=== PATIENT | female | born 1965 | race Caucasian/White ===

== ENCOUNTER → 2017-10-13 13:28 | Outpatient (CLI) | payer BC, SELFPAY | PROVIDERS: Family Provider Family Medicine; PCP Family Medicine; Visit Provider Urology | DX: R69 Illness, unspecified (principal) ==

== ENCOUNTER → 2018-01-10 19:23 | Outpatient (CLI) | payer BC, SELFPAY ==
--- NOTE | 2018-01-10 13:30 | CYSPIN_PTH ---
PATIENT: TREASURE PÉREZ LOC: [facility] U#:[id number] AGE/SX: 60/F ROOM: RE01/10/[address]: Dr. Pantera Willis MD : 1965 BED: DIS: SPEC #: [id number] RECD: 01/10/18 13:30 STATUS: BUCK FARHANA #: [id number] JUAN CARLOS: 01/10/18 13:[address]: Pantera Willis DEPT: CYTOLOGY RECD BY: Lee Carreno ENTERED: 01/11/18 07:57 SP TYPE: CYSPIN FL OTHR DR: Dr. Say Martinez MD Tissues: Urine Procedures: Pap Stain (control) Special Stain Group II Cytospin Fluid HEADER OPERATION: Not noted PRE-OP DIAGNOSIS: C67.0 TISSUE SUBMITTED: Urine for cytology DIAGNOSIS CYTOLOGY Urine for cytology (cytospin): Negative for malignant cells. AM:jaydon 01/12/18 COMMENT The specimen primarily contains squamous epithelial cells. Clinical correlation is suggested. CYTOLOGY STUDY Slides are reviewed. CYTOLOGY GROSS Received is 50 ml of clear yellow fluid labeled with the patient's name and and designated per the requisition as urine. Submitted for cytology preparation. 01/11/18 TC:5 CPT: 06664
[2018-01-10 19:25] LABS: Cytology, Body Fluid / CSF SEE PATHOLOGY REPORT
== END ==
PROVIDERS: Family Provider Family Medicine; PCP Family Medicine; Visit Provider Urology
DX: C67.0 Malignant neoplasm of trigone of bladder (principal)
CPT/HCPCS: 88108; 88313

== ENCOUNTER → 2018-06-27 12:53 | Outpatient (CLI) | payer BC, SELFPAY ==
--- NOTE | 2018-06-27 12:56 | CYSPIN_PTH ---
PATIENT: TREASURE PÉREZ LOC: . U#:[id number] AGE/SX: 60/F ROOM: RE06/27/[address]: Dr. Pantera Willis MD : 1965 BED: DIS: SPEC #: [id number] RECD: 06/27/18 13:28 STATUS: BUCK RECarlin #: [id number] JUAN CARLOS: 06/27/18 12:[address]: Pantera Willis DEPT: CYTOLOGY RECD BY: Miguel Parker ENTERED: 06/27/18 13:29 SP TYPE: CYSPIN FL OTHR DR: Dr. Say Martinez MD Tissues: Urine Procedures: Pap Stain (control) Special Stain Group II Cytospin Fluid HEADER OPERATION: Not noted PRE-OP DIAGNOSIS: History bladder CA Z85.51 TISSUE SUBMITTED: Urine for cytology DIAGNOSIS CYTOLOGY Urine for cytology (cytospin): Negative for malignant cells. SJ:jaydon 06/28/18 COMMENT Please make reference to previous specimen ([id number]) urine for cytology with diagnosis of atypical urothelial cells present and ([id number]) cauterized resected bladder tissue, TUR with diagnosis of minute detached and unoriented fragments of atypical urothelium consistent with urothelial carcinoma. CYTOLOGY STUDY Slides are reviewed. The specimen predominantly consists of benign squamous cells. CYTOLOGY GROSS Received is 40 ml of dark gold cloudy fluid labeled with the patient's name and and designated per the requisition as urine. Submitted for cytology preparation. 06/27/18 TC:4 CPT: 24333
[2018-06-27 12:57] LABS: Cytology, Body Fluid / CSF SEE PATHOLOGY REPORT
== END ==
PROVIDERS: Family Provider Family Medicine; PCP Family Medicine; Visit Provider Urology
DX: Z85.51 Personal history of malignant neoplasm of bladder (principal)
CPT/HCPCS: 88108; 88313

== ENCOUNTER → 2018-07-28 13:52 | Outpatient (CLI) | payer BC, SELFPAY ==
[2018-08-05 12:04] LABS: HPV Reflexed? NOT INDICATED
== END ==
PROVIDERS: Family Provider Family Medicine; PCP Family Medicine; Visit Provider Obstetrics & Gynecology
DX: Z12.4 Encounter for screening for malignant neoplasm of cervix (principal)
CPT/HCPCS: 88175; G0145

== ENCOUNTER → 2018-08-02 14:06 | Outpatient (CLI) | payer BC, SELFPAY | PROVIDERS: Family Provider Family Medicine; PCP Family Medicine; Visit Provider Obstetrics & Gynecology | DX: N63.20 Unspecified lump in the left breast, unspecified quadrant (principal); Z80.3 Family history of malignant neoplasm of breast | CPT/HCPCS: 76642; 77062; 77066; G0279 ==

== ENCOUNTER → 2018-08-12 10:52 | Outpatient (CLI) | payer BC, SELFPAY ==
--- NOTE | 2018-08-12 10:54 | RAD_ITS ---
STUDY: X-RAY - RIGHT FOOT CLINICAL: Female, 53 years old. Pain along the third fourth and fifth metatarsals. TECHNIQUE: 3 view(s) of the foot. COMPARISON: None. FINDINGS: There is a tiny plantar spur. Normal visualized subtalar, talonavicular, calcaneocuboid, tarsal and tarsometatarsal articulations. Normal metatarsi. Normal metatarsophalangeal joint of the great toe. Normal tibial and fibular sesamoid bones. Normal interphalangeal joint of the great toe. Normal phalanges of the great toe. Normal second through fifth metatarsophalangeal joints. Normal interphalangeal joints and phalanges of the lesser toes. The soft tissue structures are unremarkable. RAD/Foot min 3 Views IMPRESSION: Tiny plantar spur. Electronically Signed: Rohan Ramirez MD at 11:26 EDT Tel [phone], Service support ,
[2018-08-12 12:24] LABS: Absolute Neutrophil Count 2.9 X10^3/uL (2.0-7.7); Basophil# 0.01 X10^3/uL; Basophil% 0.2 % (0-1); Eosinophil# 0.11 X10^3/uL; Eosinophils% 2.4 % (0-5); Hematocrit 41.3 % (37-47); Hemoglobin 13.7 g/dl (12.0-15.0); Lymphocyte % 26.3 % (19-41); Mean Corp Hgb Conc 33.2 g/gl (32-36); Mean Corpuscular Hgb 29.6 pg (27.0-32.0); Mean Corpuscular Volume 89.2 fL (81-99); Mean Platelet Vol. 11.1 fl (6.2-12.0); Monocyte# 0.37 X10^3/uL; Monocyte% 8.1 % (0-10); Neutrophil # 2.87 X10^3/uL (2.7-7.7); Platelet Count 169 K/mm3 (150-450); RBC Distribution Width CV 12.7 % (11.6-14.6); RBC Distribution Width SD 41.2 fl (35.1-43.9); Red Blood Count 4.63 M/mm3 (4.2-5.4); White Blood Count 4.6 K/mm3 (4.4-11.0)
[2018-08-12 12:30] LABS: POSITIVE COUNT NO; POSITIVE DIFFERENTIAL NO; POSITIVE MORPHOLOGY NO
[2018-08-12 12:57] LABS: Vitamin D,25 Hydroxy 36.4 ng/mL (29.95-100.01)
[2018-08-12 12:59] LABS: ALB/GLOB Ratio 1.1 RATIO (0.9-2.4); AST(SGOT) 13 U/L (15-37); Alanine Aminotransfer ALT/SGPT 17 U/L (13-56); Albumin, Serum 3.7 g/dL (3.2-5.0); Alkaline Phosphatase 81 U/L (45-117); Anion Gap 10 (5-15); BUN 16 mg/dL (7-18); BUN/Creat Ratio 17.3 RATIO (10-20); Chloride 109 mmol/L (98-107); Creatinine, Serum 0.92 mg/dL (0.55-1.02); EST Glomerular Filtration Rate 67 mL/min (>60); Est Glom Filt Rate - Afr Amer 82 mL/min (>60); Globulin 3.3 g/dL (2.2-4.2); Glucose 88 mg/dL (74-106); Potassium 4.1 mmol/L (3.5-5.1); Sodium Level 144 mmol/L (136-145)
== END ==
PROVIDERS: Family Medicine; Family Provider Family Medicine; PCP Family Medicine; Visit Provider Family Medicine
DX: M77.41 Metatarsalgia, right foot (principal); D89.89 Other specified disorders involving the immune mechanism, not elsewhere classified; E55.9 Vitamin D deficiency, unspecified
CPT/HCPCS: 36415; 73630; 80053; 82306; 84443; 85025

== ENCOUNTER → 2018-09-22 21:35 | Outpatient (CLI) | payer BC, SELFPAY ==
--- NOTE | 2018-09-22 13:30 | CYSPIN_PTH ---
PATIENT: TREASURE PÉREZ LOC: [facility] U#:[id number] AGE/SX: 60/F ROOM: RE09/22/[address]: Dr. Pantera Willis MD : 1965 BED: DIS: SPEC #: [id number] RECD: 09/23/18 11:47 STATUS: BUCK RECarlin #: [id number] JUAN CARLOS: 09/22/18 13:[address]: Pantera Willis DEPT: CYTOLOGY RECD BY: Miguel Parker ENTERED: 09/23/18 11:47 SP TYPE: CYSPIN FL OTHR DR: Dr. Say Martinez MD Tissues: Urine Procedures: Pap Stain (control) Special Stain Group II Cytospin Fluid HEADER OPERATION: Not noted PRE-OP DIAGNOSIS: Bladder CA TISSUE SUBMITTED: Urine for cytology DIAGNOSIS CYTOLOGY Urine for cytology (cytospin): Negative for malignant cells. See cytology study and comment. SJ:jaydon 10/29/18 COMMENT Clinical correlation and appropriate follow up are necessary. CYTOLOGY STUDY Slides are reviewed. The specimen predominantly consists of benign squamous cells and organisms consistent with bacteria. CYTOLOGY GROSS Received is 20 ml of yellow cloudy fluid labeled with the patient's name and and designated per the requisition as urine. Submitted for cytology preparation. / 09/23/18 TC:5 CPT: 08750 ADDENDUM ADDENDUM ADDENDUM ADDENDUM ADDENDUM ADDENDUM ADDENDUM ADDENDUM 10/14/2018 09:57 ADDENDUM 10/14/2018 09:57 ADDENDUM 10/14/2018 09:57 ADDENDUM 10/14/2018 09:57 ADDENDUM 10/14/2018 09:57 FLUORESCENCE IN-SITU HYBRIDIZATION (FISH) From [facility] Interpretation: Negative [facility] Please see complete report in e-chart or EMR
[2018-09-22 21:38] LABS: Cytology, Body Fluid / CSF SEE PATHOLOGY REPORT
== END ==
PROVIDERS: Family Provider Family Medicine; PCP Family Medicine; Referring Provider Urology; Visit Provider Urology
DX: C67.9 Malignant neoplasm of bladder, unspecified (principal)
CPT/HCPCS: 88108; 88313

== ENCOUNTER 2018-11-18 10:30 | Outpatient (RCR) | payer BC, SELFPAY | END 2018-11-18 17:00 | disposition home or self-care (01) | LOC: PT 10:30 | PROVIDERS: Family Provider Family Medicine; PCP Family Medicine; Referring Provider Family Medicine; Visit Provider Family Medicine | DX: M54.2 Cervicalgia (principal); M25.519 Pain in unspecified shoulder | CPT/HCPCS: 97110 ==

== ENCOUNTER → 2019-03-21 17:50 | Outpatient (CLI) | payer BC, SELFPAY ==
--- NOTE | 2019-03-21 | CYSPIN_PTH ---
PATIENT: TREASURE PÉREZ LOC: [facility] U#:[id number] AGE/SX: 60/F ROOM: RE03/21/[address]: Dr. Pantera Willis MD : 1965 BED: DIS: SPEC #: [id number] RECD: 03/21/19 13:45 STATUS: BUCK RECarlin #: [id number] JUAN CARLOS: 03/21/19 00:[address]: Pantera Willis DEPT: CYTOLOGY RECD BY: Lee Carreno ENTERED: 03/22/19 12:48 SP TYPE: CYSPIN FL OTHR DR: Dr. Say Martinez MD Tissues: Urine Procedures: Pap Stain (control) Special Stain Group II Cytospin Fluid HEADER OPERATION: Not noted PRE-OP DIAGNOSIS: History of bladder CA TISSUE SUBMITTED: Urine for cytology DIAGNOSIS CYTOLOGY Urine for cytology (cytospin): Negative for malignant cells. See comment. AM:jaydon 03/23/19 COMMENT The specimen primarily contains squamous epithelial cells. Clinical correlation is suggested. CYTOLOGY STUDY Slides are reviewed. CYTOLOGY GROSS Received is 29 ml of clear yellow fluid labeled with the patient's name and and designated per the requisition as urine. Submitted for cytology preparation. 03/22/19 TC:5 CPT: 38786
[2019-03-21 17:54] LABS: Cytology, Body Fluid / CSF SEE PATHOLOGY REPORT
== END ==
PROVIDERS: Family Provider Family Medicine; PCP Family Medicine; Referring Provider Urology; Visit Provider Urology
DX: Z85.51 Personal history of malignant neoplasm of bladder (principal)
CPT/HCPCS: 88108; 88313

== ENCOUNTER → 2019-05-08 17:24 | Outpatient (CLI) | payer BC, SELFPAY | PROVIDERS: Family Provider Family Medicine; PCP Family Medicine; Referring Provider Urology; Visit Provider Urology | DX: C67.9 Malignant neoplasm of bladder, unspecified (principal) ==

== ENCOUNTER → 2019-05-09 09:46 | Outpatient (CLI) | payer BC, SELFPAY ==
[2019-05-09 12:17] LABS: Erythrocyte Sedimentation Rate 6 mm/hr (0-30)
[2019-05-09 12:20] LABS: Absolute Lymphocyte Count 1.31 X10^3/ul (0.83-4.51); Absolute Neutrophil Count 2.7 X10^3/uL (2.0-7.7); Basophil# 0.01 X10^3/uL; Basophil% 0.2 % (0-1); Eosinophils% 2.3 % (0-5); Hematocrit 41.5 % (37-47); Hemoglobin 13.9 g/dl (12.0-15.0); Lymphocyte # 1.31 X10^3/ul (4.0); Lymphocyte % 29.8 % (19-41); Mean Corp Hgb Conc 33.5 g/gl (32-36); Mean Corpuscular Hgb 30.1 pg (27.0-32.0); Mean Corpuscular Volume 89.8 fL (81-99); Mean Platelet Vol. 11.2 fl (6.2-12.0); Monocyte# 0.33 X10^3/uL; Monocyte% 7.5 % (0-10); Neutrophil # 2.65 X10^3/uL (2.7-7.7); Neutrophil % 60.2 % (47-70); Platelet Count 192 K/mm3 (150-450); RBC Distribution Width SD 42.3 fl (35.1-43.9); Red Blood Count 4.62 M/mm3 (4.2-5.4); White Blood Count 4.4 K/mm3 (4.4-11.0)
[2019-05-09 12:21] LABS: POSITIVE COUNT NO; POSITIVE DIFFERENTIAL NO; POSITIVE MORPHOLOGY NO
[2019-05-09 12:40] LABS: Cholesterol 253 mg/dL (200); High Density Lipoprotein 58 mg/dL; Triglycerides 167 mg/dL; Very Low Density Lipoprotein 33 mg/dL (5-40)
[2019-05-09 13:10] LABS: Vitamin D,25 Hydroxy 33.1 ng/mL (29.95-100.01)
== END ==
PROVIDERS: Family Provider Family Medicine; PCP Family Medicine; Referring Provider Family Medicine; Visit Provider Family Medicine
DX: D89.89 Other specified disorders involving the immune mechanism, not elsewhere classified (principal); E78.00 Pure hypercholesterolemia, unspecified; E55.9 Vitamin D deficiency, unspecified
CPT/HCPCS: 36415; 80061; 82306; 85025; 85652

== ENCOUNTER → 2019-09-08 15:25 | Outpatient (CLI) | payer BC, SELFPAY | PROVIDERS: Visit Provider Obstetrics & Gynecology | DX: Z12.4 Encounter for screening for malignant neoplasm of cervix (principal) ==

== ENCOUNTER → 2019-09-14 17:02 | Outpatient (CLI) | payer BC, SELFPAY ==
--- NOTE | 2019-09-14 | CYSPIN_PTH ---
PATIENT: TREASURE PÉREZ LOC: [facility] U#:[id number] AGE/SX: 60/F ROOM: RE09/14/[address]: Dr. Pantera Willis MD : 1965 BED: DIS: SPEC #: [id number] RECD: 09/15/19 08:52 STATUS: BUCK FARHANA #: [id number] JUAN CARLOS: 09/14/19 00:[address]: Pantera Willis DEPT: CYTOLOGY RECD BY: Gonsalo Martinez Tissues: Urine Procedures: Pap Stain (control) Special Stain Group II Cytospin Fluid HEADER OPERATION: Not noted PRE-OP DIAGNOSIS: Bladder CA TISSUE SUBMITTED: Urine for cytology DIAGNOSIS CYTOLOGY Urine for cytology (cytospin): Negative for malignant cells. See comment. SRUTHI:jaydon 09/18/19 COMMENT The specimen predominantly consists of benign squamous cells. 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 CYTOLOGY STUDY Slides are reviewed. CYTOLOGY GROSS Received is 20 ml of cloudy gloria fluid labeled with the patient's name and and designated per the requisition as urine. Submitted for cytology preparation. / jaydon 09/15/19 TC:4 CPT: 82596
[2019-09-14 17:28] LABS: Cytology, Body Fluid / CSF SEE PATHOLOGY REPORT
== END ==
PROVIDERS: Referring Provider Urology; Visit Provider Urology
DX: C67.9 Malignant neoplasm of bladder, unspecified (principal)
CPT/HCPCS: 88108; 88313

== ENCOUNTER → 2019-09-19 17:12 | Outpatient (CLI) | payer BC, SELFPAY | PROVIDERS: Referring Provider Urology; Visit Provider Urology | DX: C67.9 Malignant neoplasm of bladder, unspecified (principal) ==

== ENCOUNTER → 2019-11-21 08:26 | Outpatient (CLI) | payer BC, SELFPAY ==
[2019-11-23 20:07] LABS: Endomysial Antibody IgA Negative (Negative); Immunoglobulin A 67 mg/dL (87-352)
[2019-11-23 20:22] LABS: t-Transglutaminase IgA <2 U/mL (0-3)
== END ==
PROVIDERS: Visit Provider Internal Medicine Gastroenterology
DX: K29.80 Duodenitis without bleeding (principal)
CPT/HCPCS: 36415; 82784; 83516; 86255

== ENCOUNTER → 2019-11-28 13:46 | Outpatient (CLI) | payer BC, SELFPAY ==
[2019-12-01 16:08] LABS: Endomysial Antibody IgA Negative (Negative); Immunoglobulin A 63 mg/dL (87-352)
[2019-12-02 13:05] LABS: t-Transglutaminase IgA <2 U/mL (0-3)
== END ==
PROVIDERS: Visit Provider Internal Medicine Gastroenterology
DX: K29.80 Duodenitis without bleeding (principal)
CPT/HCPCS: 82784; 83516; 86255

== ENCOUNTER → 2019-12-08 16:00 | Outpatient (CLI) | payer BC, SELFPAY | PROVIDERS: Family Provider Family Medicine; PCP Family Medicine; Referring Provider Family Medicine; Visit Provider Internal Medicine Gastroenterology | DX: K29.80 Duodenitis without bleeding (principal); D80.2 Selective deficiency of immunoglobulin A [IgA] ==

== ENCOUNTER → 2020-01-02 13:37 | Outpatient (CLI) | payer BC, SELFPAY ==
--- NOTE | 2020-01-02 13:40 | BI_ITS ---
MAMMOGRAPHY - BILATERAL SCREENING REASON FOR EXAM: Female, 54 years old. Routine annual screening examination. PERTINENT HISTORY: Mother with breast cancer. Grandmother with breast cancer. TECHNIQUE: Digital bilateral breast john (3D mammographic acquisition) in the CC and MLO projections. 2-D mediolateral oblique (MLO) and craniocaudad (CC) views of both breasts were obtained. CAD: Full Field Digital Mammography with Computer Added Detection was performed. COMPARISON: Comparison is made with prior study dated August 17, 2017 and August 02, 2008. FINDINGS: Breast Composition: There are scattered areas of fibroglandular density. There are no dominant masses or suspicious calcifications. Stable small benign appearing bilateral axillary lymph nodes. No other significant abnormalities are identified. There has been no significant change since the prior study. BI/SCREEN MAMM (CAD) W/JOHN BILAT IMPRESSION: Stable bilateral screening mammogram. Yearly follow-up mammogram recommended. (A) ASSESSMENT CATEGORY: BIRADS Category 2: Benign. A letter regarding these results will be sent to the patient by the facility within 30 days. Approximately 10% of breast cancers are not detected by mammography. A normal mammogram should not delay biopsy of a clinically suspicious abnormality. [id number] Electronically Signed: Rohan Ramirez, at 12:26 EST , Service support ,
== END ==
PROVIDERS: PCP Family Medicine; Referring Provider Obstetrics & Gynecology; Visit Provider Obstetrics & Gynecology
DX: Z12.31 Encounter for screening mammogram for malignant neoplasm of breast (principal); Z80.3 Family history of malignant neoplasm of breast
CPT/HCPCS: 77063; 77067

== ENCOUNTER → 2020-03-14 | Outpatient (CLI) | payer BC, SELFPAY ==
--- NOTE | 2020-03-14 | CYSPIN_PTH ---
PATIENT: TREASURE PÉREZ LOC: [facility] U#:[id number] AGE/SX: 55/F ROOM: RE03/14/[address]: Dr. Pantera Willis MD : 1965 BED: DIS: 03/14/2020 SPEC #: [id number] RECD: 03/15/20 10:43 STATUS: BUCK RECarlin #: [id number] JUAN CARLOS: 03/14/20 00:[address]: Pantera Willis DEPT: CYTOLOGY RECD BY: Gonsalo Martinez ENTERED: 03/15/20 10:43 SP TYPE: CYSPIN FL OTHR DR: Dr. Elliot Burns MD Tissues: Urine Procedures: Pap Stain (control) Special Stain Group II Cytospin Fluid HEADER OPERATION: Not noted PRE-OP DIAGNOSIS: Malignant neoplasm of posterior wall of bladder TISSUE SUBMITTED: Urine for cytology DIAGNOSIS CYTOLOGY Urine for cytology (cytospin): Negative for malignant cells. See comment. SJ:jaydon 03/18/20 COMMENT Clinical correlation and appropriate follow up are necessary. 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 CYTOLOGY STUDY Slides are reviewed. CYTOLOGY GROSS Received is 20 ml of yellow cloudy fluid labeled with the patient's name and and designated per the requisition as urine. Submitted for cytology preparation. / jaydon 03/15/20 TC:5 CPT: 87923
[2020-03-14 16:59] LABS: Cytology, Body Fluid / CSF SEE PATHOLOGY REPORT
== END | disposition home or self-care (01) ==
LOC: LABSPEC 16:32
PROVIDERS: PCP Family Medicine; Referring Provider Urology; Visit Provider Urology
DX: C67.4 Malignant neoplasm of posterior wall of bladder (principal)
CPT/HCPCS: 88108; 88313

== ENCOUNTER → 2020-03-21 | Outpatient (CLI) | payer BC, SELFPAY | END | disposition home or self-care (01) | LOC: LABSPEC 16:51 | PROVIDERS: PCP Family Medicine; Referring Provider Urology; Visit Provider Urology | DX: C67.9 Malignant neoplasm of bladder, unspecified (principal) ==

== ENCOUNTER → 2020-09-12 | Outpatient (CLI) | payer BC, SELFPAY ==
--- NOTE | 2020-09-12 | FLU_PTH ---
PATIENT: TREASURE PÉREZ [facility] U#:[id number] AGE/SX: 55/F ROOM: RE09/12/[address]: Dr. Pantera Willis MD : 1965 BED: DIS: 09/12/2020 SPEC #: [id number] RECD: 09/12/20 14:28 STATUS: BUCK RECarlin #: [id number] JUAN CARLOS: 09/12/20 00:[address]: Pantera Willis DEPT: CYTOLOGY RECD BY: Dash Camacho ENTERED: 09/13/20 06:44 SP TYPE: Fluid OTHR DR: Dr. Elliot Burns MD Tissues: Urine Procedures: Special Stain Group II Cytospin Fluid HEADER OPERATION: Not noted PRE-OP DIAGNOSIS: Malignant neoplasm of bladder TISSUE SUBMITTED: Urine for cytology DIAGNOSIS CYTOLOGY Urine for cytology (cytospin): Negative for malignant cells. See comment. AM:jaydon 10/16/20 COMMENT The specimen primarily contains benign squamous epithelial cells. Clinical correlation is suggested. CYTOLOGY STUDY Slides are reviewed. CYTOLOGY GROSS Received is 80 ml of dark yellow cloudy fluid labeled with the patient's name and and designated per the requisition as urine. Submitted for cytology preparation. / jaydon 09/13/20 TC:5 CPT: 89952
[2020-09-12 15:54] LABS: Cytology, Body Fluid / CSF SEE PATHOLOGY REPORT
== END | disposition home or self-care (01) ==
LOC: LABSPEC 15:50
PROVIDERS: PCP Family Medicine; Referring Provider Urology; Visit Provider Urology
DX: C67.4 Malignant neoplasm of posterior wall of bladder (principal)
CPT/HCPCS: 88108; 88313

== ENCOUNTER → 2021-01-03 11:58 | Outpatient (CLI) | payer BC, SELFPAY ==
--- NOTE | 2021-01-03 12:01 | BI_ITS ---
MAMMOGRAPHY - BILATERAL SCREENING REASON FOR EXAM: Female, 55 years old. Routine annual screening examination. PERTINENT HISTORY: Mother with breast cancer. Grandmother with breast cancer. TECHNIQUE: Digital bilateral breast ojhn (3D mammographic acquisition) in the CC and MLO projections. 2-D mediolateral oblique (MLO) and craniocaudad (CC) views of both breasts were obtained. CAD: Full Field Digital Mammography with Computer Added Detection was performed. COMPARISON: Comparison is made with prior study dated 01/02/2020 and 08/02/2018. FINDINGS: Breast Composition: There are scattered areas of fibroglandular density. There are no dominant masses or suspicious calcifications. No other significant abnormalities are identified. There has been no significant change since the prior study. BI/SCRN MAMM (CAD)W/JOHN BILAT IMPRESSION: Stable bilateral screening mammogram. Yearly follow-up mammogram recommended. (A) ASSESSMENT CATEGORY: BIRADS Category 1: Negative. A letter regarding these results will be sent to the patient by the facility within 30 days. Approximately 10% of breast cancers are not detected by mammography. A normal mammogram should not delay biopsy of a clinically suspicious abnormality. [id number] Electronically Signed: Rohan Ramirez MD at 13:25 EST , Service support ,
== END ==
PROVIDERS: PCP Family Medicine; Referring Provider Obstetrics & Gynecology; Visit Provider Obstetrics & Gynecology
DX: Z12.31 Encounter for screening mammogram for malignant neoplasm of breast (principal)
CPT/HCPCS: 77063; 77067

== ENCOUNTER → 2021-03-13 | Outpatient (CLI) | payer BC, SELFPAY ==
--- NOTE | 2021-03-13 | CYSPIN_PTH ---
PATIENT: TREASURE PÉREZ LOC: [facility] U#:[id number] AGE/SX: 56/F ROOM: RE03/13/[address]: Dr. Pantera Willis MD : 1965 BED: DIS: 03/13/2021 SPEC #: [id number] RECD: 03/13/21 15:00 STATUS: BUCK RECarlin #: [id number] JUAN CARLOS: 03/13/21 00:[address]: Pantera Willis DEPT: CYTOLOGY RECD BY: Dash Camacho ENTERED: 03/14/21 06:58 SP TYPE: CYSPIN FL OTHR DR: Dr. Elliot Burns MD Tissues: Urine Procedures: Pap Stain (control) Special Stain Group II Cytospin Fluid HEADER OPERATION: Not noted PRE-OP DIAGNOSIS: Malignant neoplasm of bladder TISSUE SUBMITTED: Urine for cytology DIAGNOSIS CYTOLOGY Urine for cytology (cytospin): Negative for malignant cells. See comment. SJ:jaydon 03/17/2021 COMMENT The specimen predominantly consists of benign squamous cells. Clinical correlation and appropriate follow up are necessary. CYTOLOGY STUDY Slides are reviewed. CYTOLOGY GROSS Received is 40 ml of cloudy yellow fluid labeled with the patient's name and and designated per the requisition as urine. Submitted for cytology preparation. / jaydon 03/14/2021 TC:4 CPT: 97712
[2021-03-13 16:59] LABS: Cytology, Body Fluid / CSF SEE PATHOLOGY REPORT
== END | disposition home or self-care (01) ==
LOC: LABSPEC 16:22
PROVIDERS: PCP Family Medicine; Referring Provider Urology; Visit Provider Urology
DX: Z85.51 Personal history of malignant neoplasm of bladder (principal)
CPT/HCPCS: 88108; 88313

== ENCOUNTER → 2021-09-11 | Outpatient (CLI) | payer BC, SELFPAY ==
--- NOTE | 2021-09-11 | CYSPIN_PTH ---
PATIENT: TREASURE PÉREZ [facility] U#:[id number] AGE/SX: 56/F ROOM: RE09/11/[address]: Dr. Pantera Willis MD : 1965 BED: DIS: 09/11/2021 SPEC #: [id number] RECD: 09/12/21 05:53 STATUS: BUCK REQ #: [id number] JUAN CARLOS: 09/11/21 00:[address]: Pantera Willis DEPT: CYTOLOGY RECD BY: Gonsalo Martinez ENTERED: 09/12/21 05:53 SP TYPE: CYSPIN FL OTHR DR: Dr. Elliot Burns MD Tissues: Urine Procedures: Pap Stain (control) Special Stain Group II Cytospin Fluid HEADER OPERATION: Not noted PRE-OP DIAGNOSIS: Malignant neoplasm of bladder TISSUE SUBMITTED: Urine for cytology DIAGNOSIS CYTOLOGY Urine for cytology (cytospin): Negative for malignant cells. See comment. SJ:jaydon 09/12/2021 COMMENT The specimen predominantly consists of squamous cells. Clinical correlation and appropriate follow up are necessary. CYTOLOGY STUDY Slides are reviewed. CYTOLOGY GROSS Received is 5 ml of gold cloudy fluid labeled with the patient's name and and designated per the requisition as urine. Submitted for cytology preparation. / jaydon 09/12/2021 TC:4 CPT: 93355
[2021-09-11 17:36] LABS: Cytology, Body Fluid / CSF SEE PATHOLOGY REPORT
== END | disposition home or self-care (01) ==
PROVIDERS: PCP Family Medicine; Referring Provider Urology; Visit Provider Urology
DX: Z85.51 Personal history of malignant neoplasm of bladder (principal)
CPT/HCPCS: 88108; 88313

== ENCOUNTER → 2021-09-15 | Outpatient (CLI) | payer BC, SELFPAY | END | disposition home or self-care (01) | PROVIDERS: PCP Family Medicine; Referring Provider Urology; Visit Provider Urology | DX: Z85.51 Personal history of malignant neoplasm of bladder (principal) ==

== ENCOUNTER 2021-12-05 15:13 | Outpatient (CLI) | payer BC, SELFPAY ==
[2021-12-10 13:42] LABS: HPV APTIMA, High Risk Negative (Negative)
== END 2021-12-05 23:59 | disposition short-term general hospital (02) ==
LOC: LABSPEC 15:16
PROVIDERS: PCP Family Medicine; Visit Provider Obstetrics & Gynecology
DX: Z12.4 Encounter for screening for malignant neoplasm of cervix (principal)
CPT/HCPCS: 87624; 88175; G0145

== ENCOUNTER → 2022-03-19 | Outpatient (CLI) | payer BC, SELFPAY ==
--- NOTE | 2022-03-19 | CYSPIN_PTH ---
PATIENT: TREASURE PÉREZ [facility] U#:[id number] AGE/SX: 57/F ROOM: RE03/19/[address]: Dr. Pantera Willis MD : 1965 BED: DIS: 03/19/2022 SPEC #: [id number] RECD: 03/20/22 08:44 STATUS: BUCK RECarlin #: [id number] JUAN CARLOS: 03/19/22 00:[address]: Pantera Willis DEPT: CYTOLOGY RECD BY: Gonsalo Martniez ENTERED: 03/20/22 08:44 SP TYPE: CYSPIN FL OTHR DR: Dr. Elliot Burns MD Tissues: Urine Procedures: Pap Stain (control) Special Stain Group II Cytospin Fluid HEADER OPERATION: Not noted PRE-OP DIAGNOSIS: Malignant neoplasm of bladder TISSUE SUBMITTED: Urine for cytology DIAGNOSIS CYTOLOGY Urine for cytology (cytospin): Negative for malignant cells. See comment. SRUTHI:jaydon 03/20/2022 COMMENT The specimen predominantly consists of squamous epithelial cells. Organisms consistent with bacteria are also noted. Please make reference to previous specimens ([id number]) left trigone, biopsy with diagnosis of ?papillary urothelial carcinoma? and ([id number]) cauterized resected bladder tissue, TUR with diagnosis of ?minute detached and unoriented fragments of atypical urothelium, consistent with urothelial carcinoma.? CYTOLOGY STUDY Slides are reviewed. CYTOLOGY GROSS Received is 50 ml of gold cloudy fluid labeled with the patient's name and and designated per the requisition as urine. Submitted for cytology preparation. / jaydon 03/19/2022 TC:5 CPT: 22224
[2022-03-19 16:55] LABS: Cytology, Body Fluid / CSF SEE PATHOLOGY REPORT
== END | disposition home or self-care (01) ==
LOC: LABSPEC 16:47
PROVIDERS: PCP Family Medicine; Visit Provider Urology
DX: C67.4 Malignant neoplasm of posterior wall of bladder (principal)
CPT/HCPCS: 88108; 88313

== ENCOUNTER → 2022-03-25 | Outpatient (CLI) | payer BC, SELFPAY ==
--- NOTE | 2022-03-25 14:14 | BI_ITS ---
MAMMOGRAPHY - BILATERAL SCREENING REASON FOR EXAM: Female, 57 years old. Routine annual screening examination. PERTINENT HISTORY: Mother with breast cancer. Grandmother with breast cancer. TECHNIQUE: Digital bilateral breast john (3D mammographic acquisition) in the CC and MLO projections. 2-D mediolateral oblique (MLO) and craniocaudad (CC) views of both breasts were obtained. CAD: Full Field Digital Mammography with Computer Added Detection was performed. COMPARISON: Comparison is made with prior study of 01/03/2021 and 01/02/2020. FINDINGS: Breast Composition: There are scattered areas of fibroglandular density. There are no dominant masses or suspicious calcifications. Stable small benign-appearing bilateral axillary lymph nodes. No other significant abnormalities are identified. There has been no significant change since the prior study. BI/SCRN MAMM (CAD)W/JOHN BILAT IMPRESSION: Stable bilateral screening mammogram. Yearly follow-up mammogram recommended. (A) ASSESSMENT CATEGORY: BIRADS Category 2: Benign. A letter regarding these results will be sent to the patient by the facility within 30 days. Approximately 10% of breast cancers are not detected by mammography. A normal mammogram should not delay biopsy of a clinically suspicious abnormality. [id number] Electronically Signed: Rohan Ramirez MD at 15:29 EDT ,
== END | disposition home or self-care (01) ==
LOC: OPBI 14:12
PROVIDERS: PCP Family Medicine; Visit Provider Obstetrics & Gynecology
DX: Z12.31 Encounter for screening mammogram for malignant neoplasm of breast (principal)
CPT/HCPCS: 77063; 77067

== ENCOUNTER → 2022-09-22 | Outpatient (CLI) | payer BC, SELFPAY ==
--- NOTE | 2022-09-22 | CYSPIN_PTH ---
PATIENT: TREASURE PÉREZ [facility] U#:[id number] AGE/SX: 57/F ROOM: RE09/22/[address]: Dr. Pantera Willis MD : 1965 BED: DIS: 09/22/2022 SPEC #: [id number] RECD: 09/22/22 15:00 STATUS: BUCK DELCID #: [id number] JUAN CARLOS: 09/22/22 00:[address]: Pantera Willis DEPT: CYTOLOGY RECD BY: Dash Camacho ENTERED: 09/23/22 08:08 SP TYPE: CYSPIN FL OTHR DR: Dr. Elliot Burns MD Tissues: Urine Procedures: Pap Stain (control) Special Stain Group II Cytospin Fluid HEADER OPERATION: Not noted PRE-OP DIAGNOSIS: History of malignant neoplasm of bladder TISSUE SUBMITTED: Urine for cytology DIAGNOSIS CYTOLOGY Urine for cytology (cytospin): Negative for high-grade urothelial carcinoma (Nikki System Category II). See comment. AM:jaydon 09/23/2022 COMMENT The Nikki System for urine cytology diagnostic categorization was used in the evaluation of this case. CYTOLOGY STUDY Slides are reviewed. CYTOLOGY GROSS Received is 3 ml of cloudy pale yellow fluid labeled with the patient's name and and designated per the requisition as urine. Submitted for cytology preparation. / jaydon 09/23/2022 TC:5 CPT: 91483
[2022-09-22 16:41] LABS: Cytology, Body Fluid / CSF SEE PATHOLOGY REPORT
== END | disposition home or self-care (01) ==
PROVIDERS: PCP Family Medicine; Visit Provider Urology
DX: Z85.51 Personal history of malignant neoplasm of bladder (principal)
CPT/HCPCS: 88108; 88313

== ENCOUNTER → 2023-02-16 | Outpatient (CLI) | payer BC, SELFPAY ==
[2023-02-16 13:00] LABS: Vitamin D,25 Hydroxy 61.7 ng/mL
[2023-02-16 13:05] LABS: ALB/GLOB Ratio 1.2 RATIO (0.9-2.4); AST(SGOT) 17 U/L (15-37); Alanine Aminotransfer ALT/SGPT 28 U/L (13-56); Albumin, Serum 3.7 g/dL (3.2-5.0); Alkaline Phosphatase 64 U/L (45-117); Anion Gap 3 (5-15); BUN 12 mg/dL (7-18); BUN/Creat Ratio 13.1 RATIO (10-20); Calcium,Total 9.1 mg/dL (8.5-10.1); Chloride 110 mmol/L (98-107); Cholesterol 286 mg/dL (200); Creatinine, Serum 0.92 mg/dL (0.55-1.02); EST Glomerular Filtration Rate 67 mL/min (>60); Est Glom Filt Rate - Afr Amer 81 mL/min (>60); Globulin 3.2 g/dL (2.2-4.2); Glucose 93 mg/dL (74-106); High Density Lipoprotein 55 mg/dL; Potassium 4.2 mmol/L (3.5-5.1); Protein, Total 6.9 g/dL (6.4-8.2); Sodium Level 143 mmol/L (136-145); Thyroid Stim Hormone (TSH) 3.26 uIU/mL (0.358-3.74); Triglycerides 206 mg/dL; Very Low Density Lipoprotein 41 mg/dL (5-40)
[2023-02-16 13:06] LABS: Absolute Lymphocyte Count 1.41 X10^3/uL (0.83-4.51); Basophil# 0.02 X10^3/uL; Basophil% 0.4 % (0-1); Eosinophil# 0.17 X10^3/uL; Eosinophils% 3.4 % (0-5); Hematocrit 42.4 % (37-47); Hemoglobin 13.8 g/dL (12.0-15.0); Lymphocyte # 1.41 X10^3/ul (0.83-4.51); Lymphocyte % 28.5 % (19-41); Mean Corp Hgb Conc 32.5 g/dL (32-36); Mean Corpuscular Hgb 29.9 pg (27.0-32.0); Mean Corpuscular Volume 91.8 fL (81-99); Mean Platelet Vol. 11.4 fl (6.2-12.0); Monocyte# 0.37 X10^3/uL; Monocyte% 7.5 % (0-10); NRBC Flagged by Analyzer 0 % (0-5); Neutrophil # 2.96 X10^3/uL (2.7-7.7); Platelet Count 183 K/mm3 (150-450); RBC Distribution Width CV 12.4 % (11.6-14.6); RBC Distribution Width SD 41.8 fl (35.1-43.9); Red Blood Count 4.62 M/mm3 (4.2-5.4); White Blood Count 4.9 K/mm3 (4.4-11.0)
[2023-02-16 13:37] LABS: Hemoglobin A1c 5.1 % (3.8-5.6)
== END | disposition home or self-care (01) ==
LOC: MTLAB 10:35
PROVIDERS: PCP Family Medicine; Referring Provider Family Medicine; Visit Provider Family Medicine
DX: Z00.00 Encounter for general adult medical examination without abnormal findings (principal); Z13.0 Encounter for screening for diseases of the blood and blood-forming organs and certain disorders involving the immune mechanism; Z13.1 Encounter for screening for diabetes mellitus; E78.00 Pure hypercholesterolemia, unspecified; E55.9 Vitamin D deficiency, unspecified; Z13.29 Encounter for screening for other suspected endocrine disorder
CPT/HCPCS: 36415; 80053; 80061; 82306; 83036; 84443; 85025

== ENCOUNTER → 2023-04-06 | Outpatient (CLI) | payer BC, SELFPAY ==
--- NOTE | 2023-04-06 13:18 | BI_ITS ---
MAMMOGRAPHY - BILATERAL SCREENING REASON FOR EXAM: Female, 58 years old. Routine annual screening examination. PERTINENT HISTORY: Mother with breast cancer. Grandmother with breast cancer. Aunt with breast cancer. TECHNIQUE: Digital bilateral breast john (3D mammographic acquisition) in the CC and MLO projections. 2-D mediolateral oblique (MLO) and craniocaudad (CC) views of both breasts were obtained. CAD: Full Field Digital Mammography with Computer Added Detection was performed. COMPARISON: Comparison is made with prior study March 25, 2022 and January 03, 2021. FINDINGS: Breast Composition: There are scattered areas of fibroglandular density. There are no dominant masses or suspicious calcifications. Stable small benign-appearing bilateral axillary lymph nodes. No other significant abnormalities are identified. There has been no significant change since the prior study. BI/SCRN MAMM (CAD)W/JOHN BILAT IMPRESSION: Stable bilateral screening mammogram. Yearly follow-up mammogram recommended. (A) ASSESSMENT CATEGORY: BIRADS Category 2: Benign. A letter regarding these results will be sent to the patient by the facility within 30 days. Approximately 10% of breast cancers are not detected by mammography. A normal mammogram should not delay biopsy of a clinically suspicious abnormality. [id number] Electronically Signed: Rohan Ramirez MD at 14:29 EDT ,
== END | disposition home or self-care (01) ==
LOC: OPBI 13:16
PROVIDERS: PCP Family Medicine; Referring Provider Obstetrics & Gynecology; Visit Provider Obstetrics & Gynecology
DX: Z12.31 Encounter for screening mammogram for malignant neoplasm of breast (principal)
CPT/HCPCS: 77063; 77067

== ENCOUNTER → 2023-04-08 | Outpatient (CLI) | payer BC, SELFPAY ==
--- NOTE | 2023-04-08 | CYSPIN_PTH ---
PATIENT: TREASURE PÉREZ [facility] U#:[id number] AGE/SX: 58/F ROOM: RE04/08/[address]: Dr. Pantera Willis MD : 1965 BED: DIS: 04/08/2023 SPEC #: [id number] RECD: 04/09/23 09:03 STATUS: BUCK RECarlin #: [id number] JUAN CARLOS: 04/08/23 00:[address]: Pantera Willis DEPT: CYTOLOGY RECD BY: Lakisha Pak ENTERED: 04/09/23 09:03 SP TYPE: CYSPIN FL OTHR DR: Yoselyn Soto, DO Tissues: Urine Procedures: Pap Stain (control) Special Stain Group II Cytospin Fluid HEADER OPERATION: Not noted PRE-OP DIAGNOSIS: Malignant neoplasm of bladder TISSUE SUBMITTED: Urine for cytology DIAGNOSIS CYTOLOGY Urine for cytology (cytospin): Negative for malignant cells. See comment. AM:jaydon 04/09/2023 COMMENT The specimen primarily consists of squamous epithelial cells. Clinical correlation is suggested. CYTOLOGY STUDY Slides are reviewed. CYTOLOGY GROSS Received is 60 ml of dark yellow cloudy fluid labeled with the patient's name and and designated per the requisition as urine. Submitted for cytology preparation. / jaydon 04/08/2023 TC:5 CPT: 51868
[2023-04-08 17:44] LABS: Cytology, Body Fluid / CSF SEE PATHOLOGY REPORT
== END | disposition home or self-care (01) ==
PROVIDERS: PCP Family Medicine; Visit Provider Urology
DX: C67.4 Malignant neoplasm of posterior wall of bladder (principal)
CPT/HCPCS: 88108; 88313

== ENCOUNTER → 2023-08-12 | Outpatient (CLI) | payer BC, SELFPAY ==
[2023-08-12 11:18] LABS: Vitamin B12 411 pg/mL (211-911)
[2023-08-12 11:35] LABS: Cholesterol 285 mg/dL (200); High Density Lipoprotein 56 mg/dL; Thyroid Stim Hormone (TSH) 1.78 uIU/mL (0.358-3.74); Triglycerides 173 mg/dL; Very Low Density Lipoprotein 35 mg/dL (5-40)
[2023-08-13 20:07] LABS: CHOLESTEROL TOTAL 286 mg/dL (100-199); HDL-C 59 mg/dL (>39); HDL-P TOTAL 31.8 umol/L (>=30.5); INSULIN RESISTANCE SCORE 55 (<=45); LDL SIZE 21.7 nm (>20.5); LDL-C (NIH CALC) 197 mg/dL (0-99); LDL-P 2009 nmol/L (<1000); SMALL LDL-P 500 nmol/L (<=527); TRIGLYCERIDES 164 mg/dL (0-149)
== END | disposition home or self-care (01) ==
LOC: MTLAB 09:50
PROVIDERS: PCP Family Medicine; Visit Provider Family Medicine
DX: Z13.29 Encounter for screening for other suspected endocrine disorder (principal); E55.9 Vitamin D deficiency, unspecified; E78.00 Pure hypercholesterolemia, unspecified
CPT/HCPCS: 36415; 80061; 82306; 82607; 83704; 84443

== ENCOUNTER → 2023-10-11 | Outpatient (CLI) | payer BC, SELFPAY ==
--- NOTE | 2023-10-11 13:21 | CYSPIN_PTH ---
PATIENT: TREASURE PÉREZ LOC: [facility] U#:[id number] AGE/SX: 58/F ROOM: RE10/11/[address]: Dr. Pantera Willis MD : 1965 BED: DIS: 10/11/2023 SPEC #: [id number] RECD: 10/12/23 10:45 STATUS: BUCK REQ #: [id number] JUAN CARLOS: 10/11/23 13:[address]: Pantera Willis DEPT: CYTOLOGY RECD BY: Lakisha Pak ENTERED: 10/12/23 10:45 SP TYPE: CYSPIN FL OTHR DR: Yoselyn Soto DO Tissues: Urine Procedures: Pap Stain (control) Special Stain Group II Cytospin Fluid HEADER OPERATION: Not noted PRE-OP DIAGNOSIS: Malignant neoplasm of bladder TISSUE SUBMITTED: Urine for cytology DIAGNOSIS CYTOLOGY Urine for cytology (cytospin): Negative for high-grade urothelial carcinoma (NHGUC), Nikki System Category II. See comment. AM:jaydon 10/13/2023 COMMENT The specimen primarily consists of squamous epithelial cells. Clinical correlation is suggested. The Nikki System for urine cytology diagnostic categorization was used in the evaluation of this case. CYTOLOGY STUDY Slides are reviewed. CYTOLOGY GROSS Received is 50 ml of yellow cloudy fluid labeled with the patient's name and and designated per the requisition as urine. Submitted for cytology preparation. / jaydon 10/12/2023 TC:5 CPT: 63230
[2023-10-11 16:35] LABS: Cytology, Body Fluid / CSF SEE PATHOLOGY REPORT
== END | disposition home or self-care (01) ==
LOC: LABSPEC 16:21
PROVIDERS: PCP Family Medicine; Visit Provider Urology
DX: C67.4 Malignant neoplasm of posterior wall of bladder (principal)
CPT/HCPCS: 88108; 88313

== ENCOUNTER 2023-12-29 07:45 | Day surgery (SDC) | payer BC, SELFPAY ==
[2023-12-29] VITALS (12 sets, daily range): BP systolic 110–144; BP diastolic 58–77; PULSE 63–99; RESP 16–18; TEMP 36.2–37; O2SAT 95–100; BMI 27.8
--- NOTE | 2023-12-29 08:35 | CT_ITS ---
STUDY: CT ABDOMEN AND PELVIS WITHOUT CONTRAST REASON FOR EXAM: Female, 58 years old. Right flank pain RADIATION DOSAGE (If Supplied By Facility): CTDIvol = ( 8.26 ) mGy, DLP = ( 414.82 ) mGycm TECHNIQUE: Transaxial images were obtained from the dome of the diaphragm to the symphysis pubis without oral contrast, and without intravenous contrast. Sagittal and coronal images were reconstructed. Individualized dose optimization techniques were used for this CT. COMPARISON: Comparison is made with prior study dated February 03, 2016. FINDINGS: Emphysematous changes with bullous formation seen in both lower lobes. The visualized portions of the heart are within normal limits. Normal liver. Normal gallbladder and extrahepatic biliary system. Borderline splenomegaly. Normal pancreas. Normal bilateral adrenal glands. Mild degree of right hydronephrosis due to a 4 mm calculus in the proximal portion of the right ureter. Punctate calculus is seen in the upper pole calyx of the left kidney. Normal visualized stomach. Normal small intestine. Normal colon. The appendix is visualized and appears normal. Normal abdominal aorta. Normal inferior vena cava. Normal retroperitoneum. Normal urinary bladder. Calcified phleboliths are seen in the pelvis. There is a small umbilical hernia containing fat. Normal osseous structures. CT/Abdomen/Pelvis without Cont IMPRESSION: 4 mm calculus in the proximal portion of the right ureter causing mild degree of right hydronephrosis. Borderline splenomegaly. Electronically Signed: Rohan Ramirez MD at 9:43 EST ,
--- NOTE | 2023-12-29 08:36 | EX.ED.DYSGE1 ---
HPI History of Present Illness Chief Complaint: Abd Pain Detail of Chief Complaint: Abdominal pain Informant: patient Narrative Narrative: Patient presents to the emergency department with complaint of abdominal pain that woke her up this morning at 4:30 AM. She had some mild burning to the right side yesterday but then resolved. She denies urinary symptoms such as frequency urgency or hematuria. Pain is 10 out of 10. She complains of nausea. She is never had pain like this before. No significant prior abdominal surgeries. No history of kidney stones. Prior similar symptoms: No PFSH PFSH Home Medications albuterol sulfate 90 mcg/actuation aerosol inhaler (Ventolin HFA) 1 - 2 puff inhalation Q6H PRN ASTHMA 01/22/16 [History Last Taken Unknown] cholecalciferol (vitamin D3) 25 mcg (1,000 unit) tablet (Vitamin D3) 5,000 unit PO DAILY SUPPLEMENT 01/22/16 [History Last Taken 12/28/23] CURCUMIN 665 mg PO BID SUPPLEMENT 06/17/16 [History Last Taken 12/28/23] Lactobacillus acidophilus 10 billion cell capsule (Probacap) 20,000 mmu cells PO DAILY GUT HEALTH 12/29/23 [History Last Taken 12/28/23] cephalexin 500 mg capsule 500 mg PO TID #9 caps 12/29/23 [Rx Last Taken Unknown] magnesium gluconate 12.5 mg magnesium (250 mg) tablet 250 mg PO DAILY SUPPLEMENT 12/29/23 [History Last Taken 12/28/23] multivitamin (Daily Multi-Vitamin tablet) 1 tab PO DAILY HEALTH MAINTENANCE 12/29/23 [History Last Taken 12/28/23] omega 3 350 mg-dha 235 mg-epa 90 mg-fish oil 597 mg capsule,delay rel (Benwood-3) 2 cap PO DAILY SUPPLEMENT 12/29/23 [History Last Taken 12/28/23] oxycodone 5 mg tablet 5 mg PO Q6H PRN pain 7 days #14 tabs 12/29/23 [Rx Last Taken Unknown] phenazopyridine 100 mg tablet (Pyridium) 100 mg PO TID pain #15 tabs 12/29/23 [Rx Last Taken Unknown] tamsulosin 0.4 mg capsule (Flomax) 0.4 mg PO QHS #10 caps 12/29/23 [Rx Last Taken Unknown] Allergy/AdvReac Type Severity Reaction Status Date / Time latex AdvReac MILD SKIN Verified 12/29/23 07:46 IRRITATION levofloxacin [From Levaquin] AdvReac MUSCLE Verified 12/29/23 07:46 PAIN, TIGHTNESS, FATIQUE meperidine HCl [From Demerol] AdvReac NAUSEA, BP Verified 12/29/23 07:46 DROPS Social History Smoking Status: Never smoker ROS ROS ED Review of Systems ROS Unobtainable: other Constitutional Constitutional ED: Reports lethargy; Denies chills, fever(s), sweats or weight loss Eyes Eyes: Denies blurry vision, change in vision or diplopia ENT ENT ED: Denies rhinorrhea or sore throat Cardiovascular Cardiovascular: Denies chest pain, orthopnea or racing heartbeat Respiratory/Chest Respiratory/Chest: Denies cough, dyspnea, dyspnea on exertion, orthopnea or sputum Gastrointestinal Gastrointestinal: Reports abdominal pain and nausea; Denies diarrhea or vomiting Genitourinary Genitourinary ED: Denies dysuria, hematuria or urinary frequency Musculoskeletal Musculoskeletal: Denies arthralgias, back pain, myalgias or neck pain Integumentary Denies abscess, Abrasions or rash Neurologic Neurologic: Denies headache(s) or weakness Psychiatric Psychiatric: Denies anxiety, depression or suicidal thoughts Endocrine Endocrinology: Denies polydipsia, polyphagia or polyuria Hematologic/Lymphatic Hematologic/Lymphatic: Denies easy bleeding, easy bruising or lymphadenopathy Allergic/Immunologic Allergic/Immunologic ED: Denies mouth swelling, tongue swelling or urticaria EXAM Physical Exam Const Vital Signs: 12/29/23 07:46 12/29/23 11:29 12/29/23 11:30 Temperature 98.6 F Temperature Source Temporal Pulse Rate 63 63 63 Respiratory Rate 18 18 18 Blood Pressure 111/71 110/68 110/68 Blood Pressure Mean 84 82 82 Pulse Ox 100 96 96 Oxygen Delivery Method Room Air Positive well nourished and well developed General Appearance ED: well developed and NAD HEENT Reports TM's clear and moist mucous membranes normocephalic and atraumatic; Negative for trauma or tenderness Tympanic Membrane ED: Yes TM's clear Eyes PERRL and EOMs intact bilaterally General Eye ED: Negative for pale conjunctiva or scleral icterus Neck no lymphadenopathy, supple and no JVD General: Negative for tenderness Chest Wall inspection of chest normal and palpation of chest normal Chest: Negative for tenderness Resp normal respiratory effort and clear to auscultation bilaterally Effort and Inspection: Negative for respiratory distress or pain with movement Auscultation: Negative for rhonchi, wheezes or diminished lung sounds Cardio regular rate, regular rhythm, S1 normal heart sound, S2 normal heart sound and no murmurs Peripheral Pulses: pulses 2+ throughout GI normal to inspection, nondistended, normoactive bowel sounds, soft to palpation, non-distended and no masses GI Narrative: Tenderness palpation over right lower quadrant with some guarding. She has some CVA tenderness on the right. No rebound, rigidity, or pineal signs. Back/Spine no CVA tenderness and no thoracic nor lumbar tenderness Extremity normal to inspection General Extremety ED: Negative for edema General Extremity: Negative for edema Neuro oriented x3, CN's II-XII intact bilaterally, no sensory deficits noted and gait normal Sensorium / Orientation: awake, alert, oriented to person, oriented to place and oriented to time Motor Exam: strength 5/5 throughout and strength abnormal Psych mental status grossly normal Skin no rashes or lesions noted and no wounds MDM MDM MDM Narrative Medical decision making narrative: Patient presents with sudden onset of severe abdomen pain. Clinically consistent with a kidney stone. IV line established. Patient was medicated with Dilaudid and Zofran as well as Toradol. She had good pain relief with that. CBC with differential obtained for white count 9.1 with hemoglobin 13.8 and platelet count of 214. Chemistries unremarkable. BUN [address] scan of the abdomen pelvis showed a 4 mm stone in the proximal right ureter with obstruction. On my measurement of the CT and the long axis measured 6.5 mm. Patient case will be discussed with urology Dr. Willis as patient has a relationship. I discussed with urology and they will admit patient to the hospital for lithotripsy and pain management. Lab Data Attestation: I reviewed the patient's lab results. Labs: Laboratory Results - last 24 hr 12/29/23 12/29/23 08:10 09:49 WBC 9.1 RBC 4.70 Hgb 13.8 Hct 42.8 MCV 91.1 MCH 29.4 MCHC 32.2 RDW Std Deviation 41.6 RDW Coeff of Javier 12.6 Plt Count 214 MPV 11.4 Immature Gran % (Auto) 0.300 Neut % (Auto) 69.5 Lymph % (Auto) 22.9 Stanley % (Auto) 5.8 Eos % (Auto) 1.2 Baso % (Auto) 0.3 Absolute Neuts (auto) 6.3 Absolute Lymphs (auto) 2.08 Nucleated RBC % 0 Sodium 142 Potassium 3.9 Chloride 111 H Carbon Dioxide 26.0 Anion Gap 5 BUN 14 Creatinine 1.14 H Estim Creat Clear Calc 60.75 Est GFR (MDRD) Af Amer 63 Est GFR (MDRD) Non-Af 52 L BUN/Creatinine Ratio 12.3 Glucose 122 H Calcium 10.1 Urine Color Yellow Urine Clarity Cloudy Urine pH 8.0 Ur Specific [place] 1.015 Urine Protein 30 H Urine Glucose (UA) Normal Urine Ketones 5 H Urine Occult Blood 250 H Urine Nitrite Negative Urine Bilirubin Negative Urine Urobilinogen Normal Ur Leukocyte Esterase 25 H Urine RBC 10-25 SEEN Urine WBC 0-5 SEEN Ur Squamous Epith Cells 0-5 SEEN Urine Bacteria 2+ Urine Mucus 1+ Radiography Diagnostic Testing: Clinical Impression(s) from Imaging Studies Abdomen/Pelvis CT 12/29/23 08:35 IMPRESSION: 4 mm calculus in the proximal portion of the right ureter causing mild degree of right hydronephrosis. Borderline splenomegaly. Electronically Signed: Rohan Ramirez MD at 9:43 EST , Discharge Plan Dx/Rx/DC Orders Clinical Impression: Renal insufficiency, Urolithiasis, History of bladder cancer Disposition Disposition: Acute Care Hospital [facility] Discharge Date/Time: 12/29/23 13:12
[2023-12-29] MEDS: HYDROmorphone 1 MG/ML Syringe IV ×2 (08:54→11:55)
[2023-12-29] MEDS: Ketorolac 15 MG/ML Vial IV ×2 (08:54→16:06)
[2023-12-29] MEDS: Ondansetron 4 MG/2 ML Vial IV (08:54)
[2023-12-29] MEDS: 0.9% Normal Saline (1000mL) 1,000 ML 150 ML IV (09:00)
[2023-12-29 09:12] LABS: Absolute Lymphocyte Count 2.08 X10^3/uL (0.83-4.51); Absolute Neutrophil Count 6.3 X10^3/uL (2.0-7.7); Basophil# 0.03 X10^3/uL; Basophil% 0.3 % (0-1); Eosinophil# 0.11 X10^3/uL; Eosinophils% 1.2 % (0-5); Hematocrit 42.8 % (37-47); Hemoglobin 13.8 g/dL (12.0-15.0); Lymphocyte # 2.08 X10^3/ul (0.83-4.51); Lymphocyte % 22.9 % (19-41); Mean Corp Hgb Conc 32.2 g/dL (32-36); Mean Corpuscular Hgb 29.4 pg (27.0-32.0); Mean Corpuscular Volume 91.1 fL (81-99); Mean Platelet Vol. 11.4 fl (6.2-12.0); Monocyte# 0.53 X10^3/uL; Monocyte% 5.8 % (0-10); NRBC Flagged by Analyzer 0 % (0-5); Neutrophil % 69.5 % (47-70); Platelet Count 214 K/mm3 (150-450); RBC Distribution Width CV 12.6 % (11.6-14.6); RBC Distribution Width SD 41.6 fl (35.1-43.9); White Blood Count 9.1 K/mm3 (4.4-11.0)
[2023-12-29 09:23] LABS: Anion Gap 5 (5-15); BUN 14 mg/dL (7-18); BUN/Creat Ratio 12.3 RATIO (10-20); Calcium,Total 10.1 mg/dL (8.5-10.1); Chloride 111 mmol/L (98-107); Creatinine, Serum 1.14 mg/dL (0.55-1.02); EST Glomerular Filtration Rate 52 mL/min (>60); Est Glom Filt Rate - Afr Amer 63 mL/min (>60); Estimated Creatinine Clearance 60.75 ml/min; Glucose 122 mg/dL (74-106); Potassium 3.9 mmol/L (3.5-5.1); Sodium Level 142 mmol/L (136-145)
[2023-12-29 10:00] LABS: Color, Urine Yellow (Yellow); Glucose, Dipstick Normal (Normal); Ketone-Dipstick 5 mg/dl (Negative); Leukocyte Esterase-Dipstick 25 /ul (Negative); Nitrite-Dipstick Negative (Negative); Occult Blood-Urine 250 /ul (Negative); Protein-Dipstick 30 mg/dl (Negative); Specific Gravity, Urine 1.015 (1.002-1.030); Urine Bilirubin Dipstick Negative (Negative); Urine Clarity Cloudy (Clear); Urine Urobilinogen Normal (Normal)
--- NOTE | 2023-12-29 10:03 | NURSING ---
MED SURG OBS TAYLOR UROLITHIASIS
[2023-12-29 10:11] LABS: Bacteria 2+ /hpf (None Seen); Mucous, Urine 1+ /hpf (<or=2+); Red Blood Cells-Urine 10-25 SEEN /hpf (0-5); Squamous Epithelial Cells - UA 0-5 SEEN /hpf (5-10); White Blood Cells 0-5 SEEN /hpf (0-5)
--- OUTSIDE RECORDS SUMMARY | 2023-12-29 10:26 | XMS RPT_ITS | CCD ---
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 BILIRUBIN, TOTAL 0.2 - 1.3 mg/dL - 0.5 AST 13 - 35 U/L - 20 ALT 7 - 38 U/L - 15 ALKALINE PHOSPHATASE 34 - 123 U/L - 78 Objective: LMP 08/26/2014 (LMP Unknown) PAST MEDICAL HISTORY Diagnosis Date Cancer (HCC) bladder, s/p TURBT and chemo washout 2016 Fibromyalgia PAST SURGICAL HISTORY Procedure Laterality Date LAPAROSCOPY DIAGNOSTIC 2016, bladder biopsy, DANDC LIG/TRNSXJ FLP TUBE ABDL/VAG APPR UNI/BI Tubal ligation PAST SURGICAL HISTORY OF TURBT for bladder CA 2016 PAST SURGICAL HISTORY OF bladder biopsy 2016 Current Outpatient Medications Medication Sig Dispense Refill oxyCODONE IR (ROXICODONE) 5 mg immediate release tablet Take 1 tablet by mouth twice daily as needed for pain. (Patient not taking: Reported on 01/28/2022) 10 tablet 0 acetaminophen (TYLENOL EXTRA STRENGTH) 500 mg tablet Take 2 tablets by mouth every 6 hours as needed for pain. Two (2) X 500 mg tablets = 1,000 mg (Patient not taking: Reported on 01/28/2022 ) 80 tablet 0 ondansetron orally disintegrating (ZOFRAN ODT) 8 mg disintegrating tablet Take 1 tablet by mouth every 8 hours as needed for nausea/vomiting. (Patient not taking: Reported on 01/28/2022 ) 6 tablet 0 bacitracin 500 unit/gram ointment Apply to affected area twice daily. Apply thin layer to incision twice daily (Patient not taking: Reported on 01/28/2022 ) 28 g 2 cholecalciferol (VITAMIN D3) 5,000 unit tab Take 5,000 Units by mouth once daily. MAGNESIUM GLUCONATE ORAL Take 200 mg by mouth. Takes once daily in the pm quercetin dihydrate, bulk, 100 % powd Once daily in the pm, 2 capsules biotin 5 mg tab Take 5 mg by mouth once daily. In the pm TURMERIC (CURCUMIN MISC) 1 tablet 4 times dily No current facility-administered medications for this visit. ALLERGIES Allergen Reactions Demerol [Meperidine* Latex Levaquin [Levofloxa* GI Upset ROS: All negative except for: GENERAL: []weight loss []malaise []fevers HEENT: []frequent or significant headaches []changes in hearing []change in vision []nose bleeds []other nasal problems NECK: []lumps []goiter []pain and significant neck swelling RESPIRATORY: []cough []hemoptysis []wheezing []COPD []dyspnea []shortness of breath CARDIOVASCULAR: []chest pain []leg swelling []hypertension []CHF []palpitations GI: []nausea []vomiting []diarrhea MUSCULOSKELETAL: see HPI SKIN: [] skin lesions []rash []itching PSYCH: []sleep disturbance []mood disorder []recent psychosocial stressors HEMATOLOGY/LYMPHOLOGY: []prolonged bleeding []bruising easily []swollen nodes ENDOCRINE: []cold intolerance []heat intolerance []polyuria []polydipsia []goiter PE: Alert, awake in NAD A/P: S/p neck lift Post operative state Overall doing very well Follow-up in 6 months The patient is seen and examined by Dr. Kelly and the following reflects his/her service. Scribed by Christie Shaffer RN I agree with the Chief Complaint, ROS, and Past Histories independently gathered by the clinical customer support manager and the remaining scribed note accurately describes my personal service to the patient. I spent a total of 30 minutes on the date of the service which included preparing to see the patient, face- (more content not included)... [facility] 10-28-2022 History of Present illness Narrative DATE OF PHOTOS: 10/28/2022 Body Part: Neck Lena Wellington LPN October 28, 2022 3:06 PM documented in this encounter [facility] 10-28-2022 History of Present illness Narrative Plastic Surgery Note CC: post op HPI: Lori is a 57 year old female s/p neck lift on 01/16/2022. She is doing well. She reports stiffness of the neck has subsided since the last time she was last seen. She says swelling is also improving. She has been using bio oil and massaging the neck and face daily. Post op time: 9 months Hemoglobin A1C (%) Date Value 11/11/2021 5.1 Last 10 Encounter BP Readings: Date: BP: 01/19/2022 122/66 11/25/2021 125/71 08/28/2021 127/66 08/13/2021 134/59 04/23/2016 110/72 09/07/2014 104/76 09/20/2011 110/78 05/09/2010 134/68 CBC Latest Ref Rng & Units 11/11/2021 WBC 3.70 - 11.00 k/uL 4.91 RBC 3.90 - 5.20 m/uL 4.94 HEMOGLOBIN 11.5 - 15.5 g/dL 14.6 HEMATOCRIT 36.0 - 46.0 % 45.2 MCV 80.0 - 100.0 fL 91.5 MCH 26.0 - 34.0 pG 29.6 MCHC 30.5 - 36.0 g/dL 32.3 RDW-CV 11.5 - 15.0 % 12.5 PLATELETS 150 - 400 k/uL 196 MPV 9.0 - 12.7 fL 11.3 BASO% % 0.4 ABS NEUT (ANC) 1.45 - 7.50 k/uL 3.34 ABS LYMPH 1.00 - 4.00 k/uL 1.18 ABS MONO <0.87 k/uL 0.25 ABS EOSIN <0.46 k/uL 0.10 ABS BASO <0.11 k/uL <0.03 DIFF TYPE - Auto Diff CMP Latest Ref Rng & Units 06/09/2010 11/11/2021 SODIUM 136 - 144 mmol/L - 142 POTASSIUM 3.7 - 5.1 mmol/L - 4.5 CHLORIDE 97 - 105 mmol/L - 104 CO2 22 - 30 mmol/L - 27 GLUCOSE 74 - 99 mg/dL - 99 GLUCOSE (U), MELISSA NEGAT mg/dL Negative - BUN 7 - 21 mg/dL - 13 CREATININE 0.58 - 0.96 mg/dL - 0.99(H) EGFR-ALL OTHER RACES . - 58 EGFR- - - >60 PROTEIN, TOTAL 6.3 - 8.0 g/dL - 7.2 ALBUMIN 3.9 - 4.9 g/dL - 4.5 CALCIUM, TOTAL 8.5 - 10.2 mg/dL - 10.1 BILIRUBIN, TOTAL 0.2 - 1.3 mg/dL - 0.5 AST 13 - 35 U/L - 20 ALT 7 - 38 U/L - 15 ALKALINE PHOSPHATASE 34 - 123 U/L - 78 Objective: LMP 08/26/2014 (LMP Unknown) PAST MEDICAL HISTORY Diagnosis Date Cancer (HCC) bladder, s/p TURBT and chemo washout 2016 Fibromyalgia PAST SURGICAL HISTORY Procedure Laterality Date LAPAROSCOPY DIAGNOSTIC 2016, bladder biopsy, D&C LIG/TRNSXJ FLP TUBE ABDL/VAG APPR UNI/BI Tubal ligation PAST SURGICAL HISTORY OF TURBT for bladder CA 2016 PAST SURGICAL HISTORY OF bladder biopsy 2015 Current Outpatient Medications Medication Sig Dispense Refill oxyCODONE IR (ROXICODONE) 5 mg immediate release tablet Take 1 tablet by mouth twice daily as needed for pain. (Patient not taking: Reported on 01/28/2022) 10 tablet 0 acetaminophen (TYLENOL EXTRA STRENGTH) 500 mg tablet Take 2 tablets by mouth every 6 hours as needed for pain. Two (2) X 500 mg tablets = 1,000 mg (Patient not taking: Reported on 01/28/2022 ) 80 tablet 0 ondansetron orally disintegrating (ZOFRAN ODT) 8 mg disintegrating tablet Take 1 tablet by mouth every 8 hours as needed for nausea/vomiting. (Patient not taking: Reported on 01/28/2022 ) 6 tablet 0 bacitracin 500 unit/gram ointment Apply to affected area twice daily. Apply thin layer to incision twice daily (Patient not taking: Reported on 01/28/2022 ) 28 g 2 cholecalciferol (VITAMIN D3) 5,000 unit tab Take 5,000 Units by mouth once daily. MAGNESIUM GLUCONATE ORAL Take 200 mg by mouth. Takes once daily in the pm quercetin dihydrate, bulk, 100 % powd Once daily in the pm, 2 capsules biotin 5 mg tab Take 5 mg by mouth once daily. In the pm TURMERIC (CURCUMIN MISC) 1 tablet 4 times dily No current facility-administered medications for this visit. ALLERGIES Allergen Reactions Demerol [Meperidine* Latex Levaquin [Levofloxa* GI Upset ROS: All negative except for: GENERAL: []weight loss []malaise []fevers HEENT: []frequent or significant headaches []changes in hearing []change in vision []nose bleeds []other nasal problems NECK: []lumps []goiter []pain and significant neck swelling RESPIRATORY: []cough []hemoptysis []wheezing []COPD []dyspnea []shortness of breath CARDIOVASCULAR: []chest pain []leg swelling []hypertension []CHF []palpitations GI: []nausea []vomiting []diarrhea MUSCULOSKELETAL: see HPI SKIN: [] skin lesions []rash []itching PSYCH: []sleep disturbance []mood disorder []recent psychosocial stressors HEMATOLOGY/LYMPHOLOGY: []prolonged bleeding []bruising easily []swollen nodes ENDOCRINE: []cold intolerance []heat intolerance []polyuria []polydipsia []goiter PE: Alert, awake in NAD A/P: S/p neck lift Post operative state Overall doing very well Follow-up in 6 months The patient is seen and examined by Dr. Kelly and the following reflects his/her service. Scribed by Christie Shaffer RN I agree with the Chief Complaint, ROS, and Past Histories independently gathered by the clinical customer support manager and the remaining scribed note accurately describes my personal service to the patient. I spent a total of 30 minutes on the date of the service which included preparing to see the patient, [id number] patient care, completing clinical documentation, obtaining and/or reviewing separately obtained history, performing a medically appropriate examination and counseling and educating the patient/family/caregiver. Urvashi Kelly MD PhD October 28, 2022 4:12 PM This note was generated with voice recognition software and may contain errors, including spelling, grammar, syntax and misrecognition of what was dictated, that are not fully corrected. documented in this encounter [facility] 05-27-2022 History of Present illness Narrative DATE OF PHOTOS: 05/27/2022 Body Part: Full Face (neck lift) Lena Wellington LPN May 27, 2022 11:54 AM documented in this encounter [facility] 05-27-2022 History of Present illness Narrative Plastic Surgery Note CC: post op HPI: Lori is a 57 year old female s/p neck lift on 01/16/2022. She is doing well and is happy with how the neck looks. She reports only mild tenderness of the neck and that her swelling is getting better. Post op time: 4 months Hemoglobin A1C (%) Date Value 11/11/2021 5.1 Last 10 Encounter BP Readings: Date: BP: 01/19/2022 122/66 11/25/2021 125/71 08/28/2021 127/66 08/13/2021 134/59 04/23/2016 110/72 09/07/2014 104/76 09/20/2011 110/78 05/09/2010 134/68 CBC Latest Ref Rng & Units 11/11/2021 WBC 3.70 - 11.00 k/uL 4.91 RBC 3.90 - 5.20 m/uL 4.94 HEMOGLOBIN 11.5 - 15.5 g/dL 14.6 HEMATOCRIT 36.0 - 46.0 % 45.2 MCV 80.0 - 100.0 fL 91.5 MCH 26.0 - 34.0 pG 29.6 MCHC 30.5 - 36.0 g/dL 32.3 RDW-CV 11.5 - 15.0 % 12.5 PLATELETS 150 - 400 k/uL 196 MPV 9.0 - 12.7 fL 11.3 BASO% % 0.4 ABS NEUT (ANC) 1.45 - 7.50 k/uL 3.34 ABS LYMPH 1.00 - 4.00 k/uL 1.18 ABS MONO <0.87 k/uL 0.25 ABS EOSIN <0.46 k/uL 0.10 ABS BASO <0.11 k/uL <0.03 DIFF TYPE - Auto Diff CMP Latest Ref Rng & Units 06/09/2010 11/11/2021 SODIUM 136 - 144 mmol/L - 142 POTASSIUM 3.7 - 5.1 mmol/L - 4.5 CHLORIDE 97 - 105 mmol/L - 104 CO2 22 - 30 mmol/L - 27 GLUCOSE 74 - 99 mg/dL - 99 GLUCOSE (U), MELISSA NEGAT mg/dL Negative - BUN 7 - 21 mg/dL - 13 CREATININE 0.58 - 0.96 mg/dL - 0.99(H) EGFR-ALL OTHER RACES . - 58 EGFR- - - >60 PROTEIN, TOTAL 6.3 - 8.0 g/dL - 7.2 ALBUMIN 3.9 - 4.9 g/dL - 4.5 CALCIUM, TOTAL 8.5 - 10.2 mg/dL - 10.1 BILIRUBIN, TOTAL 0.2 - 1.3 mg/dL - 0.5 AST 13 - 35 U/L - 20 ALT 7 - 38 U/L - 15 ALKALINE PHOSPHATASE 34 - 123 U/L - 78 Objective: LMP 08/26/2014 (LMP Unknown) PAST MEDICAL HISTORY Diagnosis Date Cancer (HCC) bladder, s/p TURBT and chemo washout 2015 Fibromyalgia PAST SURGICAL HISTORY Procedure Laterality Date LAPAROSCOPY DIAGNOSTIC 2015, bladder biopsy, D&C LIG/TRNSXJ FLP TUBE ABDL/VAG APPR UNI/BI Tubal ligation PAST SURGICAL HISTORY OF TURBT for bladder CA 2016 PAST SURGICAL HISTORY OF bladder biopsy 2016 Current Outpatient Medications Medication Sig Dispense Refill oxyCODONE IR (ROXICODONE) 5 mg immediate release tablet Take 1 tablet by mouth twice daily as needed for pain. (Patient not taking: Reported on 01/28/2022) 10 tablet 0 acetaminophen (TYLENOL EXTRA STRENGTH) 500 mg tablet Take 2 tablets by mouth every 6 hours as needed for pain. Two (2) X 500 mg tablets = 1,000 mg (Patient not taking: Reported on 01/28/2022 ) 80 tablet 0 ondansetron orally disintegrating (ZOFRAN ODT) 8 mg disintegrating tablet Take 1 tablet by mouth every 8 hours as needed for nausea/vomiting. (Patient not taking: Reported on 01/28/2022 ) 6 tablet 0 bacitracin 500 unit/gram ointment Apply to affected area twice daily. Apply thin layer to incision twice daily (Patient not taking: Reported on 01/28/2022 ) 28 g 2 cholecalciferol (VITAMIN D3) 5,000 unit tab Take 5,000 Units by mouth once daily. MAGNESIUM GLUCONATE ORAL Take 200 mg by mouth. Takes once daily in the pm quercetin dihydrate, bulk, 100 % powd Once daily in the pm, 2 capsules biotin 5 mg tab Take 5 mg by mouth once daily. In the pm TURMERIC (CURCUMIN MISC) 1 tablet 4 times dily No current facility-administered medications for this visit. ALLERGIES Allergen Reactions Demerol [Meperidine* Latex Levaquin [Levofloxa* GI Upset ROS: All negative except for: GENERAL: []weight loss []malaise []fevers HEENT: []frequent or significant headaches []changes in hearing []change in vision []nose bleeds []other nasal problems NECK: []lumps []goiter []pain and significant neck swelling RESPIRATORY: []cough []hemoptysis []wheezing []COPD []dyspnea []shortness of breath CARDIOVASCULAR: []chest pain []leg swelling []hypertension []CHF []palpitations GI: []nausea []vomiting []diarrhea MUSCULOSKELETAL: see HPI SKIN: [] skin lesions []rash []itching PSYCH: []sleep disturbance []mood disorder []recent psychosocial stressors HEMATOLOGY/LYMPHOLOGY: []prolonged bleeding []bruising easily []swollen nodes ENDOCRINE: []cold intolerance []heat intolerance []polyuria []polydipsia []goiter PE: Alert, awake in NAD Mild swelling of neck Healed incisions, soft with no hypertrophy Neck is soft A/P: .... S/p neck lift Post operative state Doing well Discussed that swelling could take up to 1 year to resolve completely Continue scar massage Follow up in about 6 months The patient is seen and examined by Dr. Kelly and the following reflects his/her service. Scribed by Christie Perez RN I agree with the Chief Complaint, ROS, and Past Histories independently gathered by the clinical customer support manager and the remaining scribed note accurately describes my personal service to the patient. I spent a total of 30 minutes on the date of the service which included preparing to see the patient, [id number] patient care, completing clinical documentation, obtaining and/or reviewing separately obtained history, performing a medically appropriate examination and counseling and educating the patient/family/caregiver. Urvashi Kelly MD PhD May 27, 2022 12:58 PM This note was generated with voice recognition software and may contain errors, including spelling, grammar, syntax and misrecognition of what was dictated, that are not fully corrected. documented in this encounter [facility] 02-25-2022 History of Present illness Narrative [id number] DATE OF PHOTOS: February 25, 2022 TAKEN WITH LENS: 3-7ft / 70mm x5 HEAD/NECK POSES:AP/OP/LP DIAGNOSIS: NECK / TRUNK: NECKLIFT RELEASE: PATIENT SIGNED PHOTO RELEASE FOR CLINICAL USE & SURGERY Lyn Lopez LPN documented in this encounter [facility] 02-25-2022 History of Present illness Narrative Plastic Surgery Note CC: post-op HPI: Lori is a 57 year old female s/p neck lift on 01/16/2022. Hemoglobin A1C (%) Date Value 11/11/2021 5.1 Last 10 Encounter BP Readings: Date: BP: 01/19/2022 122/66 11/25/2021 125/71 08/28/2021 127/66 08/13/2021 134/59 04/23/2016 110/72 09/07/2014 104/76 09/20/2011 110/78 05/09/2010 134/68 CBC Latest Ref Rng & Units 11/11/2021 WBC 3.70 - 11.00 k/uL 4.91 RBC 3.90 - 5.20 m/uL 4.94 HEMOGLOBIN 11.5 - 15.5 g/dL 14.6 HEMATOCRIT 36.0 - 46.0 % 45.2 MCV 80.0 - 100.0 fL 91.5 MCH 26.0 - 34.0 pG 29.6 MCHC 30.5 - 36.0 g/dL 32.3 RDW-CV 11.5 - 15.0 % 12.5 PLATELETS 150 - 400 k/uL 196 MPV 9.0 - 12.7 fL 11.3 BASO% % 0.4 ABS NEUT (ANC) 1.45 - 7.50 k/uL 3.34 ABS LYMPH 1.00 - 4.00 k/uL 1.18 ABS MONO <0.87 k/uL 0.25 ABS EOSIN <0.46 k/uL 0.10 ABS BASO <0.11 k/uL <0.03 DIFF TYPE - Auto Diff CMP Latest Ref Rng & Units 06/09/2010 11/11/2021 SODIUM 136 - 144 mmol/L - 142 POTASSIUM 3.7 - 5.1 mmol/L - 4.5 CHLORIDE 97 - 105 mmol/L - 104 CO2 22 - 30 mmol/L - 27 GLUCOSE 74 - 99 mg/dL - 99 GLUCOSE (U), MELISSA NEGAT mg/dL Negative - BUN 7 - 21 mg/dL - 13 CREATININE 0.58 - 0.96 mg/dL - 0.99(H) EGFR-ALL OTHER RACES . - 58 EGFR- - - >60 PROTEIN, TOTAL 6.3 - 8.0 g/dL - 7.2 ALBUMIN 3.9 - 4.9 g/dL - 4.5 CALCIUM, TOTAL 8.5 - 10.2 mg/dL - 10.1 BILIRUBIN, TOTAL 0.2 - 1.3 mg/dL - 0.5 AST 13 - 35 U/L - 20 ALT 7 - 38 U/L - 15 ALKALINE PHOSPHATASE 34 - 123 U/L - 78 Objective: LMP 08/26/2014 (LMP Unknown) PAST MEDICAL HISTORY Diagnosis Date Cancer (HCC) bladder, s/p TURBT and chemo washout 2016 Fibromyalgia PAST SURGICAL HISTORY Procedure Laterality Date LAPAROSCOPY DIAGNOSTIC 2016, bladder biopsy, D&C LIG/TRNSXJ FLP TUBE ABDL/VAG APPR UNI/BI Tubal ligation PAST SURGICAL HISTORY OF TURBT for bladder CA 2016 PAST SURGICAL HISTORY OF bladder biopsy 2016 Current Outpatient Medications Medication Sig Dispense Refill oxyCODONE IR (ROXICODONE) 5 mg immediate release tablet Take 1 tablet by mouth twice daily as needed for pain. (Patient not taking: Reported on 01/28/2022) 10 tablet 0 acetaminophen (TYLENOL EXTRA STRENGTH) 500 mg tablet Take 2 tablets by mouth every 6 hours as needed for pain. Two (2) X 500 mg tablets = 1,000 mg (Patient not taking: Reported on 01/28/2022 ) 80 tablet 0 ondansetron orally disintegrating (ZOFRAN ODT) 8 mg disintegrating tablet Take 1 tablet by mouth every 8 hours as needed for nausea/vomiting. (Patient not taking: Reported on 01/28/2022 ) 6 tablet 0 bacitracin 500 unit/gram ointment Apply to affected area twice daily. Apply thin layer to incision twice daily (Patient not taking: Reported on 01/28/2022 ) 28 g 2 cholecalciferol (VITAMIN D3) 5,000 unit tab Take 5,000 Units by mouth once daily. (Patient not taking: Reported on 01/14/2022 ) MAGNESIUM GLUCONATE ORAL Take 200 mg by mouth. Takes once daily in the pm (Patient not taking: Reported on 01/14/2022 ) quercetin dihydrate, bulk, 100 % powd Once daily in the pm, 2 capsules (Patient not taking: Reported on 01/14/2022 ) biotin 5 mg tab Take 5 mg by mouth once daily. In the pm (Patient not taking: Reported on 01/28/2022 ) TURMERIC (CURCUMIN MISC) 1 tablet 4 times dily (Patient not taking: Reported on 01/14/2022 ) No current facility-administered medications for this visit. ALLERGIES Allergen Reactions Demerol [Meperidine* Latex Levaquin [Levofloxa* GI Upset ROS: All negative except for: GENERAL: []weight loss []malaise []fevers HEENT: []frequent or significant headaches []changes in hearing []change in vision []nose bleeds []other nasal problems NECK: []lumps []goiter []pain and significant neck swelling RESPIRATORY: []cough []hemoptysis []wheezing []COPD []dyspnea []shortness of breath CARDIOVASCULAR: []chest pain []leg swelling []hypertension []CHF []palpitations GI: []nausea []vomiting []diarrhea MUSCULOSKELETAL: see HPI SKIN: [] skin lesions []rash []itching PSYCH: []sleep disturbance []mood disorder []recent psychosocial stressors HEMATOLOGY/LYMPHOLOGY: []prolonged bleeding []bruising easily []swollen nodes ENDOCRINE: []cold intolerance []heat intolerance []polyuria []polydipsia []goiter PE: Alert, awake in NAD LUNGS: Lungs clear to auscultation, Good diaphragmatic excursion CARDIAC: Normal S1 and S2; no rubs, murmurs, or gallops, Rhythm: regular rate and rhythm, Rate: normal A/P: Doing very well follow-up in 4-month I spent a total of 30 minutes on the date of the service which included preparing to see the patient, [id number] patient care, completing clinical documentation, obtaining and/or reviewing separately obtained history, performing a medically appropriate examination and counseling and educating the patient/family/caregiver. Urvashi Kelly MD PhD February 25, 2022 5:37 PM This note was generated with voice recognition software and may contain errors, including spelling, grammar, syntax and misrecognition of what was dictated, that are not fully corrected. 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 Advance Directive(s) 01/14/2022 1:12 PM Advance Directive(s) 12/23/2021 10:37 AM Documents on File Type Date 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 Advance Directive(s) 01/14/2022 1:12 PM Summary Purpose Family History No Family History Records Found Additional Source Comments Source Comments (unrecognize d section and content) In the event this informatio n is protected by the Federal Confidentiality of Alcohol and Drug Abuse Patient Records regulations: The Federal rules restrict any use of the information to criminally investigate or prosecute any alcohol or drug abuse patient.[facility] event this information is protected by the Federal Confidentiality of Alcohol and Drug Abuse Patient Records regulations: The Federal rules restrict any use of the information to criminally investigate or prosecute any alcohol or drug abuse patient.[facility] event this information is protected by the Federal Confidentiality of Alcohol and Drug Abuse Patient Records regulations: The Federal rules restrict any use of the information to criminally investigate or prosecute any alcohol or drug abuse patient.[facility] the event this information is protected by the Federal Confidentiality of Alcohol and Drug Abuse Patient Records regulations: The Federal rules restrict any use of the information to criminally investigate or prosecute any alcohol or drug abuse patient.[facility] event this information is protected by the Federal Confidentiality of Alcohol and Drug Abuse Patient Records regulations: The Federal rules restrict any use of the information to criminally investigate or prosecute any alcohol or drug abuse patient.[facility] the event this information is protected by the Federal Confidentiality of Alcohol and Drug Abuse Patient Records regulations: The Federal rules restrict any use of the information to criminally investigate or prosecute any alcohol or drug abuse patient.[facility] the event this information is protected by the Federal Confidentiality of Alcohol and Drug Abuse Patient Records regulations: The Federal rules restrict any use of the information to criminally investigate or prosecute any alcohol or drug abuse patient.[facility] the event this information is protected by the Federal Confidentiality of Alcohol and Drug Abuse Patient Records regulations: The Federal rules restrict any use of the information to criminally investigate or prosecute any alcohol or drug abuse patient.[facility] event this information is protected by the Federal Confidentiality of Alcohol and Drug Abuse Patient Records regulations: The Federal rules restrict any use of the information to criminally investigate or prosecute any alcohol or drug abuse patient.[facility] Reason for Visit (unrecogniz ed section and content) Reason Comments Post Op neck lift Reason Comments Post Op Reason Comments Post Op Rhytidectomy Reason Comments Post Op Revision of neck Care Teams (unrecognized sec tion and content) Cloth Dyeing Range Tender Relationship Specialty Start Date End Date Caitie Sousa [address] [place] [address] PCP - General Family Practice 12/23/21 Cloth Dyeing Range Tender Relationship Specialty Start Date End Date Caitie Sousa [address] [place] [address] PCP - General Family Practice 12/23/21 Cloth Dyeing Range Tender Relationship Specialty Start Date End Date Caitie Sousa [address] [place] [address] PCP - General Family Medicine 12/23/21 Cloth Dyeing Range Tender Relationship Specialty Start Date End Date Caitie Sousa [address] [place], [place] [id number] PCP - [facility] Medicine 12/23/21 Cloth Dyeing Range Tender Relationship Specialty Start Date End Date Caitie Sousa MD [address] [place] [address] PCP - General Family Medicine 12/23/21 Cloth Dyeing Range Tender Relationship Specialty Start Date End Date Caitie Sousa MD [address] [place] [address] PCP - General Family Medicine 12/23/21 Cloth Dyeing Range Tender Relationship Specialty Start Date End Date Caitie Sousa MD [address] [place] [address] PCP - General Family Medicine 12/23/21 INFORMATION SOURCE (unrecogn ized section and content) FOR RECORDS PERTAINING TO PATIENTS WHO ARE OR HAVE BEEN ENROLLED IN A CHEMICAL DEPENDENCY/SUBSTANCEABUSE PROGRAM, SOME INFORMATION MAY BE OMITTED. This clinical summary was aggregated from multiple sources. Caution should be exercised in using it in the provision of clinical care. This summary normalizes information from multiple sources, and as a consequence, information in this document may materially change the coding, format and clinical context of patient data. In addition, data may be omitted in some cases. CLINICAL DECISIONS SHOULD BE BASED ON THE PRIMARY CLINICAL RECORDS. [facility]. provides no warranty or guarantee of the accuracy or completeness of information in this document.
--- OUTSIDE RECORDS SUMMARY | 2023-12-29 11:31 | XMS RPT_ITS | CCD ---
Author Name Unknown Address [address] [place] [address] Organization [facility] Care Team Providers Care Manager Development Name Role Phone Caitie Sousa Primary Care Provider URVASHI KELLY Referring Unavailable URVASHI KELLY Attending Unavailable CAITIE SOUSA Primary Care Unavailable URVASHI KELLY Attending Unavailable CAITIE SOUSA Primary Care Unavailable URVASHI KELLY Referring Unavailable URVASHI KELLY Attending Unavailable CAITIE SOUSA Primary Care Unavailable URVASHI KELLY Referring Unavailable Allergies Allergy Classification Reported Allergen(s) Allergy Type Date of Onset Reaction(s) Facility (10 sources) Latex; Translations: [LATEX] Propensity to adverse reactions 05-09-2010 [facility] Work Phone: (10 sources) levoFLOXacin; Translations: [LEVOFLOXACIN] Drug Allergy 04-23-2016 GI Upset [facility] (10 sources) Meperidine; Translations: [MEPERIDINE (PF)] Drug Allergy 05-09-2010 [facility] Work Phone: Medications Completed/Discontinued Medications Medication Drug [...] Start: 09-29-2023 End: 09-29-2023 ambulatory URVASHI KELLY Facility:[facility] Start: 09-29-2023 Chart abstracting Urvashi de león MD Work Phone: Plastic Surgery Plan of Treatment Date Care Activity Detail Author Start: 11-11-2024 DIABETES SCREEN DIABETES SCREEN [facility] Start: 11-11-2024 Diabetes Screening Diabetes Screenin g [facility] Start: 07-30-2023 Influenza vaccination [facility] Start: 11-29-2022 [facility] Start: 07-30-2022 Influenza vaccination [facility] Start: 11-29-2021 DEPRESSION ASSESSMENT [facility] Start: 07-30-2021 Influenza vaccination INFLUENZA (#1) [facility] Start: 2015 SHINGRIX VACCINE (1 of 2) SHINGRIX V ACCINE (1 of 2) [facility] Start: 2010 COLOGUARD (FIT-DNA) COLOGUARD (FIT-D NA) [facility] Start: 2010 Colonoscopy COLONOSCOPY [facility] Start: 2010 COLORECTAL CANCER SCREENING COLORECTAL CANCER SCREENING [facility] Start: [address] COLONOGRAPHY [facility] Start: 2010 FECAL OCCULT BLOOD FECAL OCCULT BLOO D [facility] Start: 2010 Lipid 1996 panel - S kishore or Plasma Lipid Screening [facility] Start: 2010 LIPID SCREEN LIPID SCREEN [facility] Start: 2010 SIGMOIDOSCOPY SIGMOIDOSCOPY [facility] Start: 2005 Mammography [facility] Start: 1995 HPV TESTING HPV TESTING [facility] Start: 1986 PAP TESTING PAP TESTING [facility] Start: 1984 Urine microalbumin profile [facility] Start: 1977 Adult depression scr eening assessment DEPRESSION SCREENING [facility] Start: 1970 COVID-19 VACCINE (#1) COVID-19 VACCI NE (#1) [facility] Start: 1970 COVID-19 VACCINE (1) COVID-19 VACCIN E (1) [facility] Start: 1965 COVID-19 VACCINE (#1) COVID-19 VACCI NE (#1) [facility] Start: 1965 HEPATITIS B (1 of 3 - 3-dose series) HEPATITIS B (1 of 3 - 3-dose series) [facility] Start: 1965 Hepatitis B Vaccine (1 of 3 - 3-dose series) Hepatitis B Vaccine (1 of 3 - [facility] P[facility] Date Payer Category Payer Unknown [employer] PPO OOS [id number] 2009-Present [phone] [address] [place] [address] PPO [id number] 2009 Unknown [employer] PPO OOS [id number] 2009-Present [phone] [address] [place] [address] PPO [id number] Social History Date Type Detail Facility Start: 09-20-2011 End: 04-27-2023 Tobacco smoking status NHIS Never smoked tobacco [facility] Work Phone: Start: 09-20-2011 End: 04-27-2023 Tobacco use and exposure Smokeless tobacco non-user [facility] Work Phone: Start: 01-19-2022 End: 04-27-2023 Alcohol intake Lifetime non-drinker (finding) [facility] Start: 11-25-2021 History SDOH Alcohol Frequency 1 [facility] Start: 1965 Sex Assigned At Not on file [facility] Start: 02-15-2022 End: 10-28-2022 Exposure to SARS-CoV-2 (event) Not sure [facility] Start: 04-27-2023 History of Social function [facility] Start: 04-27-2023 Tobacco use panel [facility] National Score (1-10 0), lower number is lower risk 99 [facility] Clinical Notes 02-25-2022 to 09-29-2023 Lyn Lopez LPN - 09/29/2023 1:51 PM Urvashi Means MD - 09/29/2023 1:00 PM Neftali Lopez MOTOR CHECKER - 04/27/2023 1:52 PM Telly Wellington LPN - 10/28/2022 3:06 PM EST Note Date & Type Note Facility 09-29-2023 Note HNO ID: [id number] Author: Lyn Lopez LPN Service: ? Author Type: ? Type: Progress Notes Filed: 09/29/2023 1:52 PM Note Text: DATE OF PHOTOS: 09/29/2023 Body Part: Full Face and Neck Lena Yumiko [facility] September 29, 2023 1:52 PM [facility] 09-29-2023 Note HNO ID: [id number] Author: Urvashi Kelly MD Service: ? Author [...] intolerance []polyuria []polydipsi (more content not included)... [facility] 09-29-2023 History of Present illness Narrative DATE OF PHOTOS: 09/29/2023 Body Part: Full Face and Neck Lena Calderon LPN September 29, 2023 1:52 PM documented in this encounter [facility] 09-29-2023 History of Present illness Narrative Plastic [...] Past Histories independently gathered by the clinical support merchandiser and the remaining scribed note accurately describes my personal service to the patient. I spent a total of 30 minutes on the date of the service which included preparing to see the patient, [id number] patient care, completing clinical documentation, obtaining and/or reviewing separately obtained history, performing a medically appropriate examination and counseling and educating the patient/family/caregiver. Urvashi Kelly MD PhD September 29, 2023 2:24 PM This note was generated with voice recognition software and may contain errors, including spelling, grammar, syntax and misrecognition of what was dictated, that are not fully corrected. documented in this encounter [facility] 04-27-2023 Note HNO ID: [id number] Author: Lyn Lopez LPN Service: ? Author Type: ? Type: Progress Notes Filed: 04/27/2023 1:52 PM Note Text: DATE OF PHOTOS: 04/27/2023 Body Part: Full Face and Neck Lyn Lopez LPN April 27, 2023 1:52 PM [facility] 04-27-2023 Note HNO ID: [id number] Author: Urvashi Kelly MD Service: ? Author [...] clear to auscult (more content not included)... [facility] 04-27-2023 History of Present illness Narrative DATE OF PHOTOS: 04/27/2023 Body Part: Full Face and Neck Lyn Lopez LPN April 27, 2023 1:52 PM documented in this encounter [facility] 10-28-2022 Note HNO ID: [id number] Author: Lena Wellington LPN Service: ? Author Type: LICENSED NURSE Type: Progress Notes Filed: 10/28/2022 3:06 PM Note Text: DATE OF PHOTOS: 10/28/2022 Body Part: Neck Lena Wellington LPN October 28, 2022 3:06 PM [facility] 10-28-2022 Note HNO ID: [id number] Author: Urvashi Kelly MD Service: ? Author [...] Past Histories independently gathered by the clinical support merchandiser and the remaining scribed note accurately describes my personal service to the patient. I spent a total of 30 minutes on the date of the service which included preparing to see the patient, face- (more content not included)... [facility] 10-28-2022 History of Present illness Narrative DATE OF PHOTOS: 10/28/2022 Body Part: Neck Lena Wellington LPN October 28, 2022 3:06 PM documented in this encounter [facility] 10-28-2022 History of Present illness Narrative Plastic [...] Past Histories independently gathered by the clinical support merchandiser and the remaining scribed note accurately describes my personal service to the patient. I spent a total of 30 minutes on the date of the service which included preparing to see the patient, [id number] patient care, completing clinical documentation, obtaining and/or reviewing separately obtained history, performing a medically appropriate examination and counseling and educating the patient/family/caregiver. Urvashi Kelly MD PhD October 28, 2022 4:12 PM This note was generated with voice recognition software and may contain errors, including spelling, grammar, syntax and misrecognition of what was dictated, that are not fully corrected. documented in this encounter [facility] 05-27-2022 History of Present illness Narrative DATE OF PHOTOS: 05/27/2022 Body Part: Full Face (neck lift) Lena Wellington LPN May 27, 2022 11:54 AM documented in this encounter [facility] 05-27-2022 History of Present illness Narrative Plastic [...] Past Histories independently gathered by the clinical support merchandiser and the remaining scribed note accurately describes my personal service to the patient. I spent a total of 30 minutes on the date of the service which included preparing to see the patient, [id number] patient care, completing clinical documentation, obtaining and/or reviewing separately obtained history, performing a medically appropriate examination and counseling and educating the patient/family/caregiver. Urvashi Kelly MD PhD May 27, 2022 12:58 PM This note was generated with voice recognition software and may contain errors, including spelling, grammar, syntax and misrecognition of what was dictated, that are not fully corrected. documented in this encounter [facility] 02-25-2022 History of Present illness Narrative [id number] DATE OF PHOTOS: February 25, 2022 TAKEN WITH LENS: 3-7ft / 70mm x5 HEAD/NECK POSES:AP/OP/LP DIAGNOSIS: NECK / TRUNK: NECKLIFT RELEASE: PATIENT SIGNED PHOTO RELEASE FOR CLINICAL USE & SURGERY Lyn Lopez LPN documented in this encounter [facility] 02-25-2022 History of Present illness Narrative Plastic [...] which included preparing to see the patient, [id number] patient care, completing clinical documentation, obtaining and/or reviewing separately obtained history, performing a medically appropriate examination and counseling and educating the patient/family/caregiver. Urvashi Kelly MD PhD February 25, 2022 5:37 PM This note was generated with voice recognition software and may contain errors, including spelling, grammar, syntax and misrecognition of what was dictated, that are not fully corrected. documented in this encounter [facility] Diagnosis Post-operative state- Primary Other postprocedural status [facility] Diagnosis Excess skin of neck- Primary documented in this encounter [facility] Advance Directives No Advanced Directives Records FoundDocuments on File Type Date Recorded Patient Rcp Expl anation Advance Directive(s) 01/14/2022 1:12 PM Advance Directive(s) 12/23/2021 10:37 AM Documents on File Type Date Recorded Patient Rcp Expl anation Advance Directive(s) 01/14/2022 1:12 PM [...] or prosecute any alcohol or drug abuse patient.[facility] the event this information is protected by the Federal Confidentiality of Alcohol and Drug Abuse Patient Records regulations: The Federal rules restrict any use of the information to criminally investigate or prosecute any alcohol or drug abuse patient.[facility] the event this information is protected by the Federal Confidentiality of Alcohol and Drug Abuse Patient Records regulations: The Federal rules restrict any use of the information to criminally investigate or prosecute any alcohol or drug abuse patient.[facility] the event this information is protected by the Federal Confidentiality of Alcohol and Drug Abuse Patient Records regulations: The Federal rules restrict any use of the information to criminally investigate or prosecute any alcohol or drug abuse patient.[facility] the event this information is protected by the Federal Confidentiality of Alcohol and Drug Abuse Patient Records regulations: The Federal rules restrict any use of the information to criminally investigate or prosecute any alcohol or drug abuse patient.[facility] the event this information is protected by the Federal Confidentiality of Alcohol and Drug Abuse Patient Records regulations: The Federal rules restrict any use of the information to criminally investigate or prosecute any alcohol or drug abuse patient.[facility] the event this information is protected by the Federal Confidentiality of Alcohol and Drug Abuse Patient Records regulations: The Federal rules restrict any use of the information to criminally investigate or prosecute any alcohol or drug abuse patient.[facility] the event this information is protected by the Federal Confidentiality of Alcohol and Drug Abuse Patient Records regulations: The Federal rules restrict any use of the information to criminally investigate or prosecute any alcohol or drug abuse patient.[facility] the event this information is protected by the Federal Confidentiality of Alcohol and Drug Abuse Patient Records regulations: The Federal rules restrict any use of the information to criminally investigate or prosecute any alcohol or drug abuse patient.[facility] Reason for Visit (unrecogniz ed section and content) Reason Comments Post Op neck lift Reason Comments Post Op Reason Comments Post Op Rhytidectomy Reason Comments Post Op Revision of neck Care Teams (unrecognized sec tion and content) Manager Development Relationship Specialty Start Date End Date Caitie Sousa [address] [place] [address] PCP - General Family Practice 12/23/21 Manager Development Relationship Specialty Start Date End Date Caitie Sousa [address] [place] [address] PCP - General Family Practice 12/23/21 Manager Development Relationship Specialty Start Date End Date Caitie Sousa [address] [place] [address] PCP - General Family Medicine 12/23/21 Manager Development Relationship Specialty Start Date End Date Caitie Sousa [address] [place], [place] [address] PCP - [facility] Medicine 12/23/21 Manager Development Relationship Specialty Start Date End Date Caitie Sousa MD [address] [place] [address] PCP - General Family Medicine 12/23/21 Manager Development Relationship Specialty Start Date End Date Caitie Sousa MD [address] [place] [address] PCP - General Family Medicine 12/23/21 Manager Development Relationship Specialty Start Date End Date Caitie Sousa MD [address] [place] [address] PCP - General Family Medicine 12/23/21 INFORMATION [...] BE BASED ON THE PRIMARY CLINICAL RECORDS. [facility] [employer] [facility]. provides no warranty or guarantee of the accuracy or completeness of information in this document.
--- NOTE | 2023-12-29 12:33 | DCINST_ITS ---
Discharge Instructions Diet Discharge Diet: No restrictions Activity Discharge Activity: Return to Normal Activity and May Not Drive (while taking narcotic pain medications.) Dressing / Incision Call your doctor if you observe: Fever of 101 or Higher Follow Up Care Please Follow Up With: Pantera Willis MD When: Call [phone] for an appointment Test Results: Test results from this visit will be discussed in further detail at your follow- up appointment, if applicable. Discharge Plan Admission Admit Date/Time: 12/29/23 11:20 Primary Reason for Your Visit: kidney stone Attending Provider: Pantera Willis Primary Care Provider: Yoselyn Soto Discharge Orders/Prescriptions Prescriptions: New cephalexin 500 mg capsule 500 mg PO TID Qty: 9 0RF phenazopyridine [Pyridium] 100 mg tablet 100 mg PO TID Qty: 15 0RF tamsulosin [Flomax] 0.4 mg capsule 0.4 mg PO QHS Qty: 10 0RF oxycodone 5 mg tablet 5 mg PO Q6H PRN (Reason: pain) 7 Days Qty: 14 0RF Continued cholecalciferol (vitamin D3) [Vitamin D3] 1,000 UNIT tablet 5,000 unit PO DAILY albuterol sulfate [Ventolin HFA] 1 INHALER inhaler 1 - 2 puff inhalation Q6H PRN (Reason: ASTHMA ) CURCUMIN capsule 665 mg PO BID multivitamin [Daily Multi-Vitamin] Tablet 1 tab PO DAILY magnesium gluconate 12.5 mg magne- sium (250 mg) tablet 250 mg PO DAILY [place]-3 350 mg-235 mg- 90 mg-597 mg capsule,delayed release(DR/EC) 2 cap PO DAILY Probacap 10 billion cell capsule 20,000 mmu cells PO DAILY Referrals / Follow Up: Pantera Willis MD [Med Staff - Active Staff] - Yoselyn Soto DO [Primary Care Provider] - Disposition Discharge Orders: Discharge Patient (Routine); Ordered 12/29/23 Ordered By: Dr. Pantera Willis
--- NOTE | 2023-12-29 12:33 | PCM.HP.STD ---
HPI - General General Date of Admission: 12/29/23 Date of Service: 12/29/23 Chief Complaint: Right kidney stone HPI Narrative TREASURE PÉREZ, is a 58 F who presents to the emergency room with severe pain in the right kidney from a stone in the proximal right ureter shoes taken to the operating room today plan for ESWL and right stent placement. For obstructing stone PFSH Home Medications albuterol sulfate 90 mcg/actuation aerosol inhaler (Ventolin HFA) 1 - 2 puff inhalation Q6H PRN ASTHMA 01/22/16 [History Last Taken Unknown] cholecalciferol (vitamin D3) 25 mcg (1,000 unit) tablet (Vitamin D3) 5,000 unit PO DAILY SUPPLEMENT 01/22/16 [History Last Taken 12/28/23] CURCUMIN 665 mg PO BID SUPPLEMENT 06/17/16 [History Last Taken 12/28/23] Lactobacillus acidophilus 10 billion cell capsule (Probacap) 20,000 mmu cells PO DAILY [facility] 12/29/23 [History Last Taken 12/28/23] cephalexin 500 mg capsule 500 mg PO TID #9 caps 12/29/23 [Rx Last Taken Unknown] magnesium gluconate 12.5 mg magnesium (250 mg) tablet 250 mg PO DAILY SUPPLEMENT 12/29/23 [History Last Taken 12/28/23] multivitamin (Daily Multi-Vitamin tablet) 1 tab PO DAILY HEALTH MAINTENANCE 12/29/23 [History Last Taken 12/28/23] omega 3 350 mg-dha 235 mg-epa 90 mg-fish oil 597 mg capsule,delay rel ([place]-3) 2 cap PO DAILY SUPPLEMENT 12/29/23 [History Last Taken 12/28/23] oxycodone 5 mg tablet 5 mg PO Q6H PRN pain 7 days #14 tabs 12/29/23 [Rx Last Taken Unknown] phenazopyridine 100 mg tablet (Pyridium) 100 mg PO TID pain #15 tabs 12/29/23 [Rx Last Taken Unknown] tamsulosin 0.4 mg capsule (Flomax) 0.4 mg PO QHS #10 caps 12/29/23 [Rx Last Taken Unknown] Allergy/AdvReac Type Severity Reaction Status Date / Time latex AdvReac MILD SKIN Verified 12/29/23 07:46 IRRITATION levofloxacin [From Levaquin] AdvReac MUSCLE Verified 12/29/23 07:46 PAIN, TIGHTNESS, FATIQUE meperidine HCl [From Demerol] AdvReac NAUSEA, BP Verified 12/29/23 07:46 DROPS Social History Smoking Status: Never smoker Vital Signs Vital Signs Vital Signs: 12/29/23 07:46 12/29/23 11:29 12/29/23 11:30 Temperature 98.6 F Temperature Source Temporal Pulse Rate 63 63 63 Respiratory Rate 18 18 18 Blood Pressure 111/71 110/68 110/68 Blood Pressure Mean 84 82 82 Pulse Ox 100 96 96 Oxygen Delivery Method Room Air Weight Weight: 83.007 kg Body Mass Index (BMI) 27.8 Results Lab / Micro Data 12/29/23 08:10 12/29/23 08:10 Labs: Laboratory Results - last 24 hr 12/29/23 08:10: WBC 9.1, RBC 4.70, Hgb 13.8, Hct 42.8, MCV 91.1, MCH 29.4, MCHC 32.2, RDW Std Deviation 41.6, RDW Coeff of Javier 12.6, Plt Count 214, MPV 11.4, Immature Gran % (Auto) 0.300, Neut % (Auto) 69.5, Lymph % (Auto) 22.9, [place] % (Auto) 5.8, Eos % (Auto) 1.2, Baso % (Auto) 0.3, Absolute Neuts (auto) 6.3, Absolute Lymphs (auto) 2.08, Nucleated RBC % 0, Sodium 142, Potassium 3.9, Chloride 111 H, Carbon Dioxide 26.0, Anion Gap 5, BUN 14, Creatinine 1.14 H, Estim Creat Clear Calc 60.75, Est GFR (MDRD) Af Amer 63, Est GFR (MDRD) Non-Af 52 L, BUN/Creatinine Ratio 12.3, Glucose 122 H, Calcium 10.1 12/29/23 09:49: Urine Color Yellow, Urine Clarity Cloudy, Urine pH 8.0, Ur Specific [place] 1.015, Urine Protein 30 H, Urine Glucose (UA) Normal, Urine Ketones 5 H, Urine Occult Blood 250 H, Urine Nitrite Negative, Urine Bilirubin Negative, Urine Urobilinogen Normal, Ur Leukocyte Esterase 25 H, Urine RBC 10-25 SEEN, Urine WBC 0-5 SEEN, Ur Squamous Epith Cells 0-5 SEEN, Urine Bacteria 2+, Urine Mucus 1+ Imaging Radiology Impression Abdomen/Pelvis CT 12/29/23 08:35 IMPRESSION: 4 mm calculus in the proximal portion of the right ureter causing mild degree of right hydronephrosis. Borderline splenomegaly. Electronically Signed: Rohan Ramirez MD at 9:43 EST ,
[2023-12-29] MEDS: Lactated Ringers 1,000 ML 100 ML IV (12:45)
--- OUTSIDE RECORDS SUMMARY | 2023-12-29 12:45 | XMS RPT_ITS | CCD ---
Author Name Unknown Address [address] [place] [address] Organization [facility] Care Team Providers Care Convolute Tube Winder Name Role Phone Caitie Sousa Primary Care [...] Translations: [LATEX] Propensity to adverse reactions 05-09-2010 [facility] Work Phone: (10 sources) levoFLOXacin; Translations: [LEVOFLOXACIN] Drug Allergy 04-23-2016 GI Upset [facility] (10 sources) Meperidine; Translations: [MEPERIDINE (PF)] Drug Allergy 05-09-2010 [facility] Work Phone: Medications Completed/Discontinued Medications Medication Drug [...] Start: 09-29-2023 End: 09-29-2023 ambulatory URVASHI KELLY Facility:[facility] Start: 09-29-2023 Chart abstracting Urvashi de león MD Work Phone: Plastic Surgery Plan of Treatment Date Care Activity Detail Author Start: 11-11-2024 DIABETES SCREEN DIABETES SCREEN [facility] Start: 11-11-2024 Diabetes Screening Diabetes Screenin g [facility] Start: 07-30-[address] [facility] Start: 11-29-2022 [facility] Start: 07-30-2022 Influenza vaccination [facility] Start: 11-29-2021 DEPRESSION ASSESSMENT [facility] Start: 07-30-2021 Influenza vaccination INFLUENZA (#1) [facility] Start: 2015 SHINGRIX VACCINE (1 of 2) SHINGRIX V ACCINE (1 of 2) [facility] Start: 2010 COLOGUARD (FIT-DNA) COLOGUARD (FIT-D NA) [facility] Start: 2010 Colonoscopy COLONOSCOPY [facility] Start: 2010 COLORECTAL CANCER SCREENING COLORECTAL CANCER SCREENING [facility] Start: [address] COLONOGRAPHY [facility] Start: 2010 FECAL OCCULT BLOOD FECAL OCCULT BLOO D [facility] Start: 2010 Lipid 1996 panel - S kishore or Plasma Lipid Screening [facility] Start: 2010 LIPID SCREEN LIPID SCREEN [facility] Start: 2010 SIGMOIDOSCOPY SIGMOIDOSCOPY [facility] Start: 2005 Mammography [facility] Start: 1995 HPV TESTING HPV TESTING [facility] Start: 1986 PAP TESTING PAP TESTING [facility] Start: 1984 Urine microalbumin profile [facility] Start: 1977 Adult depression scr eening assessment DEPRESSION SCREENING [facility] Start: 1970 COVID-19 VACCINE (#1) COVID-19 VACCI NE (#1) [facility] Start: 1970 COVID-19 VACCINE (1) COVID-19 VACCIN E (1) [facility] Start: 1965 COVID-19 VACCINE (#1) COVID-19 VACCI NE (#1) [facility] Start: 1965 HEPATITIS B (1 of 3 - 3-dose series) HEPATITIS B (1 of 3 - 3-dose series) [facility] Start: 1965 Hepatitis B Vaccine (1 of 3 - 3-dose series) Hepatitis B Vaccine (1 of 3 - 3-dose series) [facility] Payers Date Payer Category Payer Unknown [employer] PPO OOS [id number] 2009-Present [phone] [address] [place] [address] PPO [id number] 2009 Unknown [employer] PPO OOS [id number] 2009-Present [phone] [address] [place] [address] PPO [id number] Social History Date Type Detail Facility Start: 09-20-2011 End: 04-27-2023 Tobacco smoking status NHIS Never smoked tobacco [facility] Work Phone: Start: 09-20-2011 End: 04-27-2023 Tobacco use and exposure Smokeless tobacco non-user [facility] Work Phone: Start: 01-19-2022 End: 04-27-2023 Alcohol intake Lifetime non-drinker (finding) [facility] Start: 11-25-2021 History SDOH Alcohol Frequency 1 [facility] Start: 1965 Sex Assigned At Not on file [facility] Start: 02-15-2022 End: 10-28-2022 Exposure to SARS-CoV-2 (event) Not sure [facility] Start: 04-27-2023 History of Social function [facility] Start: 04-27-2023 Tobacco use panel [facility] National Score (1-10 0), lower number is lower risk 99 [facility] Clinical Notes 02-25-2022 to 09-29-2023 Lyn Lopez LPN - 09/29/2023 1:51 PM Urvashi Means MD - 09/29/2023 1:00 PM 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 Author Type: ? Type: Progress Notes Filed: 09/29/2023 1:52 PM Note Text: DATE OF PHOTOS: 09/29/2023 Body Part: Full Face and Neck Lena Yumiko [facility] September 29, 2023 1:52 PM [facility] 09-29-2023 Note HNO ID: [id number] Author: Urvashi Kelly MD Service: ? Author [...] intolerance []polyuria []polydipsi (more content not included)... [facility] 09-29-2023 History of Present illness Narrative DATE OF PHOTOS: 09/29/2023 Body Part: Full Face and Neck Lena Calderon LPN September 29, 2023 1:52 PM documented in this encounter [facility] 09-29-2023 History of Present illness Narrative Plastic [...] Past Histories independently gathered by the clinical application support administrator and the remaining scribed note accurately describes my personal service to the patient. I spent a total of 30 minutes on the date of the service which included preparing to see the patient, [id number] patient care, completing clinical documentation, obtaining and/or reviewing separately obtained history, performing a medically appropriate examination and counseling and educating the patient/family/caregiver. Urvashi Kelly MD PhD September 29, 2023 2:24 PM This note was generated with voice recognition software and may contain errors, including spelling, grammar, syntax and misrecognition of what was dictated, that are not fully corrected. documented in this encounter [facility] 04-27-2023 Note HNO ID: [id number] Author: Lyn Lopez LPN Service: ? Author Type: ? Type: Progress Notes Filed: 04/27/2023 1:52 PM Note Text: DATE OF PHOTOS: 04/27/2023 Body Part: Full Face and Neck Lyn Lopez LPN April 27, 2023 1:52 PM [facility] 04-27-2023 Note HNO ID: [id number] Author: Urvashi Kelly MD Service: ? Author [...] clear to auscult (more content not included)... [facility] 04-27-2023 History of Present illness Narrative DATE OF PHOTOS: 04/27/2023 Body Part: Full Face and Neck Lyn Lopez LPN April 27, 2023 1:52 PM documented in this encounter [facility] 10-28-2022 Note HNO ID: [id number] Author: Lena Wellington LPN Service: ? Author Type: LICENSED NURSE Type: Progress Notes Filed: 10/28/2022 3:06 PM Note Text: DATE OF PHOTOS: 10/28/2022 Body Part: Neck Lena Wellington LPN October 28, 2022 3:06 PM [facility] 10-28-2022 Note HNO ID: [id number] Author: Urvashi Kelly MD Service: ? Author [...] Past Histories independently gathered by the clinical application support administrator and the remaining scribed note accurately describes my personal service to the patient. I spent a total of 30 minutes on the date of the service which included preparing to see the patient, face- (more content not included)... [facility] 10-28-2022 History of Present illness Narrative DATE OF PHOTOS: 10/28/2022 Body Part: Neck Lena Wellington LPN October 28, 2022 3:06 PM documented in this encounter [facility] 10-28-2022 History of Present illness Narrative Plastic [...] Past Histories independently gathered by the clinical application support administrator and the remaining scribed note accurately describes my personal service to the patient. I spent a total of 30 minutes on the date of the service which included preparing to see the patient, [id number] patient care, completing clinical documentation, obtaining and/or reviewing separately obtained history, performing a medically appropriate examination and counseling and educating the patient/family/caregiver. Urvashi Kelly MD PhD October 28, 2022 4:12 PM This note was generated with voice recognition software and may contain errors, including spelling, grammar, syntax and misrecognition of what was dictated, that are not fully corrected. documented in this encounter [facility] 05-27-2022 History of Present illness Narrative DATE OF PHOTOS: 05/27/2022 Body Part: Full Face (neck lift) Lena Wellington LPN May 27, 2022 11:54 AM documented in this encounter [facility] 05-27-2022 History of Present illness Narrative Plastic [...] Past Histories independently gathered by the clinical application support administrator and the remaining scribed note accurately describes my personal service to the patient. I spent a total of 30 minutes on the date of the service which included preparing to see the patient, [id number] patient care, completing clinical documentation, obtaining and/or reviewing separately obtained history, performing a medically appropriate examination and counseling and educating the patient/family/caregiver. Urvashi Kelly MD PhD May 27, 2022 12:58 PM This note was generated with voice recognition software and may contain errors, including spelling, grammar, syntax and misrecognition of what was dictated, that are not fully corrected. documented in this encounter [facility] 02-25-2022 History of Present illness Narrative [id number] DATE OF PHOTOS: February 25, 2022 TAKEN WITH LENS: 3-7ft / 70mm x5 HEAD/NECK POSES:AP/OP/LP DIAGNOSIS: NECK / TRUNK: NECKLIFT RELEASE: PATIENT SIGNED PHOTO RELEASE FOR CLINICAL USE & SURGERY Lyn Lopez LPN documented in this encounter [facility] 02-25-2022 History of Present illness Narrative Plastic [...] which included preparing to see the patient, [id number] patient care, completing clinical documentation, obtaining and/or reviewing separately obtained history, performing a medically appropriate examination and counseling and educating the patient/family/caregiver. Urvashi Kelly MD PhD February 25, 2022 5:37 PM This note was generated with voice recognition software and may contain errors, including spelling, grammar, syntax and misrecognition of what was dictated, that are not fully corrected. documented in this encounter [facility] Post-operative state- Primary Other postprocedural status [facility] Diagnosis Excess skin of neck- Primary documented in this encounter [facility] Advance Directives No Advanced Directives Records FoundDocuments on File Type Date Recorded Patient Detective Precinct Expl anation Advance Directive(s) 01/14/2022 1:12 PM Advance Directive(s) 12/23/2021 10:37 AM Documents on File Type Date Recorded Patient Detective Precinct Expl anation Advance Directive(s) 01/14/2022 1:12 PM [...] or prosecute any alcohol or drug abuse patient.[facility] the event this information is protected by the Federal Confidentiality of Alcohol and Drug Abuse Patient Records regulations: The Federal rules restrict any use of the information to criminally investigate or prosecute any alcohol or drug abuse patient.[facility] the event this information is protected by the Federal Confidentiality of Alcohol and Drug Abuse Patient Records regulations: The Federal rules restrict any use of the information to criminally investigate or prosecute any alcohol or drug abuse patient.[facility] the event this information is protected by the Federal Confidentiality of Alcohol and Drug Abuse Patient Records regulations: The Federal rules restrict any use of the information to criminally investigate or prosecute any alcohol or drug abuse patient.[facility] the event this information is protected by the Federal Confidentiality of Alcohol and Drug Abuse Patient Records regulations: The Federal rules restrict any use of the information to criminally investigate or prosecute any alcohol or drug abuse patient.[facility] the event this information is protected by the Federal Confidentiality of Alcohol and Drug Abuse Patient Records regulations: The Federal rules restrict any use of the information to criminally investigate or prosecute any alcohol or drug abuse patient.[facility] the event this information is protected by the Federal Confidentiality of Alcohol and Drug Abuse Patient Records regulations: The Federal rules restrict any use of the information to criminally investigate or prosecute any alcohol or drug abuse patient.[facility] the event this information is protected by the Federal Confidentiality of Alcohol and Drug Abuse Patient Records regulations: The Federal rules restrict any use of the information to criminally investigate or prosecute any alcohol or drug abuse patient.[facility] the event this information is protected by the Federal Confidentiality of Alcohol and Drug Abuse Patient Records regulations: The Federal rules restrict any use of the information to criminally investigate or prosecute any alcohol or drug abuse patient.[facility] Reason for Visit (unrecogniz ed section and content) Reason Comments Post Op neck lift Reason Comments Post Op Reason Comments Post Op Rhytidectomy Reason Comments Post Op Revision of neck Care Teams (unrecognized sec tion and content) Convolute Tube Winder Relationship Specialty Start Date End Date Caitie Sousa [address] [place] [address] PCP - General Family Practice 12/23/21 Convolute Tube Winder Relationship Specialty Start Date End Date Caitie Sousa [address] [place] [address] PCP - General Family Practice 12/23/21 Convolute Tube Winder Relationship Specialty Start Date End Date Caitie Sousa [address] [place] [address] PCP - General Family Medicine 12/23/21 Convolute Tube Winder Relationship Specialty Start Date End Date Caitie Sousa [address] [place], [place] [id number] PCP - [facility] Medicine 12/23/21 Convolute Tube Winder Relationship Specialty Start Date End Date Caitie Sousa MD [address] [place] [address] PCP - General Family Medicine 12/23/21 Convolute Tube Winder Relationship Specialty Start Date End Date Caitie Sousa MD [address] [place] [address] PCP - General Family Medicine 12/23/21 Convolute Tube Winder Relationship Specialty Start Date End Date Caitie Sousa MD [address] [place] [address] PCP - General Family Medicine 12/23/21 INFORMATION [...] BE BASED ON THE PRIMARY CLINICAL RECORDS. [facility] [employer] [facility]. provides no warranty or guarantee of the accuracy or completeness of information in this document.
--- NOTE | 2023-12-29 12:48 | ED.RN ---
REPORT GIVEN TO RUY IN [place].
--- OUTSIDE RECORDS SUMMARY | 2023-12-29 13:27 | XMS RPT_ITS | CCD ---
Author Name Unknown Address [address] [place] [address] Organization [facility] Care Team Providers Care Salesforce Administrator Name Role Phone Caitie Sousa Primary Care Provider [phone] URVASHI KELLY Referring Unavailable URVASHI KELLY Attending Unavailable CAITIE SOUSA Primary Care Unavailable URVASHI KELLY Attending Unavailable CAITIE SOUSA Primary Care Unavailable URVASHI KELLY Referring Unavailable URVASHI KELLY Attending Unavailable CAITIE SOUSA Primary Care Unavailable URVASHI KELLY Referring Unavailable Allergies Allergy Classification Reported Allergen(s) Allergy Type Date of Onset Reaction(s) Facility (10 sources) Latex; Translations: [LATEX] Propensity to adverse reactions 05-09-2010 [facility] Work Phone: (10 sources) levoFLOXacin; Translations: [LEVOFLOXACIN] Drug Allergy 04-23-2016 GI Upset [facility] (10 sources) Meperidine; Translations: [MEPERIDINE (PF)] Drug Allergy 05-09-2010 [facility] Work Phone: Medications Completed/Discontinued Medications Medication [...] Start: 09-29-2023 End: 09-29-2023 ambulatory URVASHI KELLY Facility:[facility] Start: 09-29-2023 Chart abstracting Urvashi de león MD Work Phone: Plastic Surgery Plan of Treatment Date Care Activity Detail Author Start: 11-11-2024 DIABETES SCREEN DIABETES SCREEN [facility] Start: 11-11-2024 Diabetes Screening Diabetes Screenin g [facility] Start: 07-30-2023 Influenza vaccination [facility] Start: 11-29-2022 [facility] Start: 07-30-2022 Influenza vaccination C [facility] Start: 11-29-2021 DEPRESSION ASSESSMENT [facility] Start: 07-30-2021 Influenza vaccination INFLUENZA (#1) [facility] Start: 2015 SHINGRIX VACCINE (1 of 2) SHINGRIX V ACCINE (1 of 2) [facility] Start: 2010 COLOGUARD (FIT-DNA) COLOGUARD (FIT-D NA) [facility] Start: 2010 Colonoscopy COLONOSCOPY [facility] Start: 2010 COLORECTAL CANCER SCREENING COLORECTAL CANCER SCREENING [facility] Start: [address] COLONOGRAPHY [facility] Start: 2010 FECAL OCCULT BLOOD FECAL OCCULT BLOO D [facility] Start: 2010 Lipid 1996 panel - S kishore or Plasma Lipid Screening [facility] Start: 2010 LIPID SCREEN LIPID SCREEN [facility] Start: 2010 SIGMOIDOSCOPY SIGMOIDOSCOPY [facility] Start: 2005 Mammography [facility] Start: 1995 HPV TESTING HPV TESTING [facility] Start: 1986 PAP TESTING PAP TESTING [facility] Start: 1984 Urine microalbumin profile [facility] Start: 1977 Adult depression scr eening assessment DEPRESSION SCREENING [facility] Start: 1970 COVID-19 VACCINE (#1) COVID-19 VACCI NE (#1) [facility] Start: 1970 COVID-19 VACCINE (1) COVID-19 VACCIN E (1) [facility] Start: 1965 COVID-19 VACCINE (#1) COVID-19 VACCI NE (#1) [facility] Start: 1965 HEPATITIS B (1 of 3 - 3-dose series) HEPATITIS B (1 of 3 - 3-dose series) [facility] Start: 1965 Hepatitis B Vaccine (1 of 3 - 3-dose series) Hepatitis B Vaccine (1 of 3 - 3[facility]dose series) [facility] Payers Date Payer Category Payer Unknown [employer] PPO OOS [id number] 2009-Present [phone] [address] [place] [address] PPO [id number] 2009 Unknown [employer] PPO OOS [id number] 2009-Present [phone] [address] [place] [address] PPO [id number] Social History Date Type Detail Facility Start: 09-20-2011 End: 04-27-2023 Tobacco smoking status NHIS Never smoked tobacco [facility] Work Phone: Start: 09-20-2011 End: 04-27-2023 Tobacco use and exposure Smokeless tobacco non-user [facility] Work Phone: Start: 01-19-2022 End: 04-27-2023 Alcohol intake Lifetime non-drinker (finding) [facility] Start: 11-25-2021 History SDOH Alcohol Frequency 1 [facility] Start: 1965 Sex Assigned At Not on file [facility] Start: 02-15-2022 End: 10-28-2022 Exposure to SARS-CoV-2 (event) Not sure [facility] Start: 04-27-2023 History of Social function [facility] Start: 04-27-2023 Tobacco use panel [facility] National Score (1-10 0), lower number is lower risk 99 [facility] Clinical Notes 02-25-2022 to 09-29-2023 Lyn Lopez LPN - 09/29/2023 1:51 PM Urvashi Means MD - 09/29/2023 1:00 PM Neftali Lopez PUBLIC ADDRESS TECHNICIAN - 04/27/2023 1:52 PM Telly Wellington LPN - 10/28/2022 3:06 PM EST Note Date & Type Note Facility 09-29-2023 Note HNO ID: [id number] Author: Lyn Lopez LPN Service: ? Author Type: ? Type: Progress Notes Filed: 09/29/2023 1:52 PM Note Text: DATE OF PHOTOS: 09/29/2023 Body Part: Full Face and Neck Lena Yumiko [facility] September 29, 2023 1:52 PM [facility] 09-29-2023 Note HNO ID: [id number] Author: Urvashi Kelly MD Service: ? Author [...] intolerance []polyuria []polydipsi (more content not included)... [facility] 09-29-2023 History of Present illness Narrative DATE OF PHOTOS: 09/29/2023 Body Part: Full Face and Neck Lena Calderon LPN September 29, 2023 1:52 PM documented in this encounter [facility] 09-29-2023 History of Present illness Narrative [...] Past Histories independently gathered by the clinical sales support technician and the remaining scribed note accurately describes my personal service to the patient. I spent a total of 30 minutes on the date of the service which included preparing to see the patient, [id number] patient care, completing clinical documentation, obtaining and/or reviewing separately obtained history, performing a medically appropriate examination and counseling and educating the patient/family/caregiver. Urvashi Kelly MD PhD September 29, 2023 2:24 PM This note was generated with voice recognition software and may contain errors, including spelling, grammar, syntax and misrecognition of what was dictated, that are not fully corrected. documented in this encounter [facility] 04-27-2023 Note HNO ID: [id number] Author: Lyn Lopez LPN Service: ? Author Type: ? Type: Progress Notes Filed: 04/27/2023 1:52 PM Note Text: DATE OF PHOTOS: 04/27/2023 Body Part: Full Face and Neck Lyn Lopez LPN April 27, 2023 1:52 PM [facility] 04-27-2023 Note HNO ID: [id number] Author: Urvashi Kelly MD Service: ? Author [...] clear to auscult (more content not included)... [facility] 04-27-2023 History of Present illness Narrative DATE OF PHOTOS: 04/27/2023 Body Part: Full Face and Neck Lyn Lopez LPN April 27, 2023 1:52 PM documented in this encounter [facility] 10-28-2022 Note HNO ID: [id number] Author: Lena Wellington LPN Service: ? Author Type: LICENSED NURSE Type: Progress Notes Filed: 10/28/2022 3:06 PM Note Text: DATE OF PHOTOS: 10/28/2022 Body Part: Neck Lena Wellington LPN October 28, 2022 3:06 PM [facility] 10-28-2022 Note HNO ID: [id number] Author: Urvashi Kelly MD Service: ? Author [...] Past Histories independently gathered by the clinical sales support technician and the remaining scribed note accurately describes my personal service to the patient. I spent a total of 30 minutes on the date of the service which included preparing to see the patient, face- (more content not included)... [facility] 10-28-2022 History of Present illness Narrative DATE OF PHOTOS: 10/28/2022 Body Part: Neck Lena Wellington LPN October 28, 2022 3:06 PM documented in this encounter [facility] 10-28-2022 History of Present illness Narrative [...] Past Histories independently gathered by the clinical sales support technician and the remaining scribed note accurately describes my personal service to the patient. I spent a total of 30 minutes on the date of the service which included preparing to see the patient, [id number] patient care, completing clinical documentation, obtaining and/or reviewing separately obtained history, performing a medically appropriate examination and counseling and educating the patient/family/caregiver. Urvashi Kelly MD PhD October 28, 2022 4:12 PM This note was generated with voice recognition software and may contain errors, including spelling, grammar, syntax and misrecognition of what was dictated, that are not fully corrected. documented in this encounter [facility] 05-27-2022 History of Present illness Narrative DATE OF PHOTOS: 05/27/2022 Body Part: Full Face (neck lift) Lena Wellington LPN May 27, 2022 11:54 AM documented in this encounter [facility] 05-27-2022 History of Present illness Narrative [...] Past Histories independently gathered by the clinical sales support technician and the remaining scribed note accurately describes my personal service to the patient. I spent a total of 30 minutes on the date of the service which included preparing to see the patient, [id number] patient care, completing clinical documentation, obtaining and/or reviewing separately obtained history, performing a medically appropriate examination and counseling and educating the patient/family/caregiver. Urvashi Kelly MD PhD May 27, 2022 12:58 PM This note was generated with voice recognition software and may contain errors, including spelling, grammar, syntax and misrecognition of what was dictated, that are not fully corrected. documented in this encounter [facility] 02-25-2022 History of Present illness Narrative [id number] DATE OF PHOTOS: February 25, 2022 TAKEN WITH LENS: 3-7ft / 70mm x5 HEAD/NECK POSES:AP/OP/LP DIAGNOSIS: NECK / TRUNK: NECKLIFT RELEASE: PATIENT SIGNED PHOTO RELEASE FOR CLINICAL USE & SURGERY Lyn Lopez LPN documented in this encounter [facility] 02-25-2022 History of Present illness Narrative [...] which included preparing to see the patient, [id number] patient care, completing clinical documentation, obtaining and/or reviewing separately obtained history, performing a medically appropriate examination and counseling and educating the patient/family/caregiver. Urvashi Kelly MD PhD February 25, 2022 5:37 PM This note was generated with voice recognition software and may contain errors, including spelling, grammar, syntax and misrecognition of what was dictated, that are not fully corrected. 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 Advance Directive(s) 01/14/2022 1:12 PM Advance Directive(s) 12/23/2021 10:37 AM Documents on File Type Date Recorded 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 Advance Directive(s) 01/14/2022 1:12 PM [...] or prosecute any alcohol or drug abuse patient.[facility] the event this information is protected by the Federal Confidentiality of Alcohol and Drug Abuse Patient Records regulations: The Federal rules restrict any use of the information to criminally investigate or prosecute any alcohol or drug abuse patient.[facility] the event this information is protected by the Federal Confidentiality of Alcohol and Drug Abuse Patient Records regulations: The Federal rules restrict any use of the information to criminally investigate or prosecute any alcohol or drug abuse patient.[facility] the event this information is protected by the Federal Confidentiality of Alcohol and Drug Abuse Patient Records regulations: The Federal rules restrict any use of the information to criminally investigate or prosecute any alcohol or drug abuse patient.[facility] the event this information is protected by the Federal Confidentiality of Alcohol and Drug Abuse Patient Records regulations: The Federal rules restrict any use of the information to criminally investigate or prosecute any alcohol or drug abuse patient.[facility] the event this information is protected by the Federal Confidentiality of Alcohol and Drug Abuse Patient Records regulations: The Federal rules restrict any use of the information to criminally investigate or prosecute any alcohol or drug abuse patient.[facility] the event this information is protected by the Federal Confidentiality of Alcohol and Drug Abuse Patient Records regulations: The Federal rules restrict any use of the information to criminally investigate or prosecute any alcohol or drug abuse patient.[facility] the event this information is protected by the Federal Confidentiality of Alcohol and Drug Abuse Patient Records regulations: The Federal rules restrict any use of the information to criminally investigate or prosecute any alcohol or drug abuse patient.[facility] the event this information is protected by the Federal Confidentiality of Alcohol and Drug Abuse Patient Records regulations: The Federal rules restrict any use of the information to criminally investigate or prosecute any alcohol or drug abuse patient.[facility] Reason for Visit (unrecogniz ed section and content) Reason Comments Post Op neck lift Reason Comments Post Op Reason Comments Post Op Rhytidectomy Reason Comments Post Op Revision of neck Care Teams (unrecognized sec tion and content) Salesforce Administrator Relationship Specialty Start Date End Date Caitie Sousa [address] [place] [address] PCP - General Family Practice 12/23/21 Salesforce Administrator Relationship Specialty Start Date End Date Caitie Sousa [address] [place] [address] PCP - General Family Practice 12/23/21 Salesforce Administrator Relationship Specialty Start Date End Date Caitie Sousa [address] [place] [address] PCP - General Family Medicine 12/23/21 Salesforce Administrator Relationship Specialty Start Date End Date Caitie Sousa [address] [place], [place] [id number] PCP - [facility] Medicine 12/23/21 Salesforce Administrator Relationship Specialty Start Date End Date Caitie Sousa MD [address] [place] [address] PCP - General Family Medicine 12/23/21 Salesforce Administrator Relationship Specialty Start Date End Date Caitie Sousa MD [address] [place] [address] PCP - General Family Medicine 12/23/21 Salesforce Administrator Relationship Specialty Start Date End Date Caitie Sousa MD [address] [place] [address] PCP - General Family Medicine 12/23/21 INFORMATION [...] BE BASED ON THE PRIMARY CLINICAL RECORDS. [facility] [employer] [facility]. provides no warranty or guarantee of the accuracy or completeness of information in this document.
--- OUTSIDE RECORDS SUMMARY | 2023-12-29 13:36 | XMS RPT_ITS | CCD ---
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 Role Phone Caitie Sousa Primary [facility] [...] Translations: [LATEX] Propensity to adverse reactions 05-09-2010 [facility] Work Phone: (10 sources) levoFLOXacin; Translations: [LEVOFLOXACIN] Drug Allergy 04-23-2016 GI Upset [facility] (10 sources) Meperidine; Translations: [MEPERIDINE (PF)] Drug Allergy 05-09-2010 [facility] Work Phone: Medications Completed/Discontinued Medications [...] Start: 09-29-2023 End: 09-29-2023 ambulatory URVASHI KELLY Facility:[facility] Start: 09-29-2023 Chart abstracting Urvashi de león MD Work Phone: Plastic Surgery Plan of Treatment Date Care Activity Detail Author Start: 11-11-2024 DIABETES SCREEN DIABETES SCREEN [facility] Start: 11-11-2024 Diabetes Screening Diabetes Screenin g [facility] Start: 07-30-2023 Influenza vaccination [facility] Start: 11-29-2022 [facility] Start: 07-30-2022 Influenza vaccination [facility] Start: 11-29-2021 DEPRESSION ASSESSMENT [facility] Start: 07-30-2021 Influenza vaccination INFLUENZA (#1) [facility] Start: 2015 SHINGRIX VACCINE (1 of 2) SHINGRIX V ACCINE (1 of 2) [facility] Start: 2010 COLOGUARD (FIT-DNA) COLOGUARD (FIT-D NA) [facility] Start: 2010 Colonoscopy COLONOSCOPY [facility] Start: 2010 COLORECTAL CANCER SCREENING COLORECTAL CANCER SCREENING [facility] Start: [address] COLONOGRAPHY [facility] Start: 2010 FECAL OCCULT BLOOD FECAL OCCULT BLOO D [facility] Start: 2010 Lipid 1996 panel - S kishore or Plasma Lipid Screening [facility] Start: 2010 LIPID SCREEN LIPID SCREEN [facility] Start: 2010 SIGMOIDOSCOPY SIGMOIDOSCOPY [facility] Start: 2005 Mammography [facility] Start: 1995 HPV TESTING HPV TESTING [facility] Start: 1986 PAP TESTING PAP TESTING [facility] Start: 1984 Urine microalbumin profile [facility] Start: 1977 Adult depression scr eening assessment DEPRESSION SCREENING [facility] Start: 1970 COVID-19 VACCINE (#1) COVID-19 VACCI NE (#1) [facility] Start: 1970 COVID-19 VACCINE (1) COVID-19 VACCIN E (1) [facility] Start: 1965 COVID-19 VACCINE (#1) COVID-19 VACCI NE (#1) [facility] Start: 1965 HEPATITIS B (1 of 3 - 3-dose series) HEPATITIS B (1 of 3 - 3-dose series) [facility] Start: 1965 Hepatitis B Vaccine (1 of 3 - 3-dose series) Hepatitis B Vacc[facility] (1 of 3 - [facility] P[facility] Date Payer Category Payer Unknown [employer] PPO OOS [id number] 2009-Present [phone] [address] [place] [address] PPO [id number] 2009 Unknown [employer] PPO OOS [id number] 2009-Present [phone] [address] [place] [address] PPO [id number] Social History Date Type Detail Facility Start: 09-20-2011 End: 04-27-2023 Tobacco smoking status NHIS Never smoked tobacco [facility] Work Phone: Start: 09-20-2011 End: 04-27-2023 Tobacco use and exposure Smokeless tobacco non-user [facility] Work Phone: Start: 01-19-2022 End: 04-27-2023 Alcohol intake Lifetime non-drinker (finding) [facility] Start: 11-25-2021 History SDOH Alcohol Frequency 1 [facility] Start: 1965 Sex Assigned At Not on file [facility] Start: 02-15-2022 End: 10-28-2022 Exposure to SARS-CoV-2 (event) Not sure [facility] Start: 04-27-2023 History of Social function [facility] Start: 04-27-2023 Tobacco use panel [facility] National Score (1-10 0), lower number is lower risk 99 [facility] Clinical Notes 02-25-2022 to 09-29-2023 Lyn oLpez LPN - 09/29/2023 1:51 PM Urvashi Means MD - 09/29/2023 1:00 PM Neftali Lopez [facility] - 04/27/2023 1:52 PM Telly Wellington LPN - 10/28/2022 3:06 PM EST Note Date & Type Note Facility 09-29-2023 Note HNO ID: [id number] Author: Lyn Lopez LPN Service: ? Author Type: ? Type: Progress Notes Filed: 09/29/2023 1:52 PM Note Text: DATE OF PHOTOS: 09/29/2023 Body Part: Full Face and Neck Lena Yumiko [facility] September 29, 2023 1:52 PM [facility] 09-29-2023 Note HNO ID: [id number] Author: Urvashi Kelly MD Service: ? Author [...] []polydipsi (more content not included)... [facility] 09-29-2023 History of Present illness Narrative DATE OF PHOTOS: 09/29/2023 Body Part: Full Face and Neck Lena Calderon LPN September 29, 2023 1:52 PM documented in this encounter [facility] 09-29-2023 History of Present illness [...] Past Histories independently gathered by the clinical clerical and office support workers and the remaining scribed note accurately describes my personal service to the patient. I spent a total of 30 minutes on the date of the service which included preparing to see the patient, [id number] patient care, completing clinical documentation, obtaining and/or reviewing separately obtained history, performing a medically appropriate examination and counseling and educating the patient/family/caregiver. Urvashi Kelly MD PhD September 29, 2023 2:24 PM This note was generated with voice recognition software and may contain errors, including spelling, grammar, syntax and misrecognition of what was dictated, that are not fully corrected. documented in this encounter [facility] 04-27-2023 Note HNO ID: [id number] Author: Lyn Lopez LPN Service: ? Author Type: ? Type: Progress Notes Filed: 04/27/2023 1:52 PM Note Text: DATE OF PHOTOS: 04/27/2023 Body Part: Full Face and Neck Lyn Lopez LPN April 27, 2023 1:52 PM [facility] 04-27-2023 Note HNO ID: [id number] Author: Urvashi Kelly MD Service: ? Author [...] auscult (more content not included)... [facility] 04-27-2023 History of Present illness Narrative DATE OF PHOTOS: 04/27/2023 Body Part: Full Face and Neck Lyn Lopez LPN April 27, 2023 1:52 PM documented in this encounter [facility] 10-28-2022 Note HNO ID: [id number] Author: Lena Wellington LPN Service: ? Author Type: LICENSED NURSE Type: Progress Notes Filed: 10/28/2022 3:06 PM Note Text: DATE OF PHOTOS: 10/28/2022 Body Part: Neck Lena Wellington LPN October 28, 2022 3:06 PM [facility] 10-28-2022 Note HNO ID: [id number] Author: Urvashi Kelly MD Service: ? Author [...] Past Histories independently gathered by the clinical clerical and office support workers and the remaining scribed note accurately describes my personal service to the patient. I spent a total of 30 minutes on the date of the service which included preparing to see the patient, face- (more content not included)... [facility] 10-28-2022 History of Present illness Narrative DATE OF PHOTOS: 10/28/2022 Body Part: Neck Lena Wellington LPN October 28, 2022 3:06 PM documented in this encounter [facility] 10-28-2022 History of Present illness [...] Past Histories independently gathered by the clinical clerical and office support workers and the remaining scribed note accurately describes my personal service to the patient. I spent a total of 30 minutes on the date of the service which included preparing to see the patient, [id number] patient care, completing clinical documentation, obtaining and/or reviewing separately obtained history, performing a medically appropriate examination and counseling and educating the patient/family/caregiver. Urvashi Kelly MD PhD October 28, 2022 4:12 PM This note was generated with voice recognition software and may contain errors, including spelling, grammar, syntax and misrecognition of what was dictated, that are not fully corrected. documented in this encounter [facility] 05-27-2022 History of Present illness Narrative DATE OF PHOTOS: 05/27/2022 Body Part: Full Face (neck lift) Lena Wellington LPN May 27, 2022 11:54 AM documented in this encounter [facility] 05-27-2022 History of Present illness [...] Past Histories independently gathered by the clinical clerical and office support workers and the remaining scribed note accurately describes my personal service to the patient. I spent a total of 30 minutes on the date of the service which included preparing to see the patient, [id number] patient care, completing clinical documentation, obtaining and/or reviewing separately obtained history, performing a medically appropriate examination and counseling and educating the patient/family/caregiver. Urvashi Kelly MD PhD May 27, 2022 12:58 PM This note was generated with voice recognition software and may contain errors, including spelling, grammar, syntax and misrecognition of what was dictated, that are not fully corrected. documented in this encounter [facility] 02-25-2022 History of Present illness Narrative [id number] DATE OF PHOTOS: February 25, 2022 TAKEN WITH LENS: 3-7ft / 70mm x5 HEAD/NECK POSES:AP/OP/LP DIAGNOSIS: NECK / TRUNK: NECKLIFT RELEASE: PATIENT SIGNED PHOTO RELEASE FOR CLINICAL USE & SURGERY Lyn Lopez LPN documented in this encounter [facility] 02-25-2022 History of Present illness [...] which included preparing to see the patient, heri-mu-ebit patient care, completing clinical documentation, obtaining and/or reviewing separately obtained history, performing a medically appropriate examination and counseling and educating the patient/family/caregiver. Urvashi Kelly MD PhD February 25, 2022 5:37 PM This note was generated with voice recognition software and may contain errors, including spelling, grammar, syntax and misrecognition of what was dictated, that are not fully corrected. 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 Advance Directive(s) 01/14/2022 1:12 PM Advance Directive(s) 12/23/2021 10:37 AM Documents on File Type Date Recorded 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 Advance Directive(s) 01/14/2022 1:12 PM [...] or prosecute any alcohol or drug abuse patient.[facility] the event this information is protected by the Federal Confidentiality of Alcohol and Drug Abuse Patient Records regulations: The Federal rules restrict any use of the information to criminally investigate or prosecute any alcohol or drug abuse patient.[facility] the event this information is protected by the Federal Confidentiality of Alcohol and Drug Abuse Patient Records regulations: The Federal rules restrict any use of the information to criminally investigate or prosecute any alcohol or drug abuse patient.[facility] the event this information is protected by the Federal Confidentiality of Alcohol and Drug Abuse Patient Records regulations: The Federal rules restrict any use of the information to criminally investigate or prosecute any alcohol or drug abuse patient.[facility] the event this information is protected by the Federal Confidentiality of Alcohol and Drug Abuse Patient Records regulations: The Federal rules restrict any use of the information to criminally investigate or prosecute any alcohol or drug abuse patient.[facility] the event this information is protected by the Federal Confidentiality of Alcohol and Drug Abuse Patient Records regulations: The Federal rules restrict any use of the information to criminally investigate or prosecute any alcohol or drug abuse patient.[facility] the event this information is protected by the Federal Confidentiality of Alcohol and Drug Abuse Patient Records regulations: The Federal rules restrict any use of the information to criminally investigate or prosecute any alcohol or drug abuse patient.[facility] the event this information is protected by the Federal Confidentiality of Alcohol and Drug Abuse Patient Records regulations: The Federal rules restrict any use of the information to criminally investigate or prosecute any alcohol or drug abuse patient.[facility] the event this information is protected by the Federal Confidentiality of Alcohol and Drug Abuse Patient Records regulations: The Federal rules restrict any use of the information to criminally investigate or prosecute any alcohol or drug abuse patient.[facility] Reason for Visit (unrecogniz ed section and content) Reason Comments Post Op neck lift Reason Comments Post Op Reason Comments Post Op Rhytidectomy Reason Comments Post Op Revision of neck Care Teams (unrecognized sec tion and content) 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 Relationship Specialty Start Date End Date Caitie Sousa [address] [place] [address] PCP - General Family Practice 12/23/21 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 [facility] [employer] [facility] provides no warranty or guarantee of the accuracy or completeness of information in this document.
--- NOTE | 2023-12-29 14:01 | SUR.PREOP ---
dilaudid given per order
[2023-12-29] MEDS: Cefazolin 2 GM in 0.9% Normal Saline (100mL Bag) 100 ML IV (14:40)
--- NOTE | 2023-12-29 15:43 | OP.PCM_ITS ---
Report of Operation Date of Procedure: 12/29/23 Pre-Operative Diagnosis: Right ureteral calculi Post-Operative Diagnosis: The same Surgery/Procedure Performed:: Cystoscopy right stent placement and extracorporeal shockwave lithotripsy Description of Surgical Findings:: Patient presents to the hospital for treatment of a kidney stone with shockwave lithotripsy. In the preoperative area and x-ray was done to confirm the location of the stone. The x-ray was reviewed and the stone location was reviewed. In the preoperative setting I spoke with the patient regarding the treatment of the stone how the treatment would be conducted and the expectations after surgery. The patient understands there is a risk of bleeding and infection. Also discussed the very rare risk of hematoma or damage to the kidney. We also discussed the risk that the shockwave machine will fail to break the stone adequately and that the patient may need other surgical procedures. We also discussed the possibility that the patient may need a stent after the procedure. After reviewing the procedure with the patient, the patient is signed the consent form all the patient's questions were addressed and was taken back to the operating room for treatment of a kidney stone. Patient was taken back to the operating room, patient was identified by the nursing staff, we identified the side of the treatment and the patient side of treatment had been marked by my initials. The urethra and genitals were prepped and draped in usual sterile fashion. Using a 21 B[place] rigid cystourethroscope the entire length of the urethra was normal then went into the bladder. Identified the trigone the left and right ureteral orifice. I then cannulated the right orifice and advanced a wire up into the kidney. I then backloaded a 5 B[place]udian open ended catheter over the wire and injected contrast to delineate the anatomy. After the retrograde was performed I then used fluoroscopic images and guidance to advanced a wire up into the kidney and over the 0.038 glidewire I advanced a 6 B[place]udian by 26 cm double pigtail stent. I then pulled the 0.038 Glidewire off and the stent coiled in the kidney bladder good position. The bladder was then drained. We confirmed the position of the stent by fluoroscopy. The patient underwent general anesthetic and was placed supine on the lithotripter table. We then used fluoroscopy to identify the stone on the right side. We then positioned the patient under the lithotripter and we used triangulation technique to identify the location of the stone and then we made sure that the stone was engaged in the F2 focal point of F2 Donier lithoprior machine. Once the patient was positioned appropriately and the stone was identified and placed in the F2 focal point of the lithotripter machine we then proceeded with shockwave lithotripsy. In the beginning the shockwave was delivered at a rate of 90 shocks per minute, we monitor the EKG for any ectopy. The power was slowly increased to 5 kV and subsequently at the 7 kV. We then proceeded with the treatment we move the therapy had around during the treatment to make sure the stone stayed in the F2 focal point during the entire treatment and after 3000 shockwaves were delivered to the stone under fluoroscopic guidance the treatment was completed. The patient was given instructions to call the office to make an a follow-up appointment with an xray to evaluate the suc cess of the treatment, pateint understands that its possible the stones may need another procedure.At this point the patient's anesthetic was reversed patient was extubated and taken back to the PACU in stable condition. Surgeon: Pantera Willis Type of Anesthesia: General Drains: stent Admit VTE Documentation VTE Present on Admission: No VTE Mechan Device Prophylaxis: SCD's VTE Pharm Prophylaxis ordered?: No
== END 2023-12-29 18:52 | disposition home or self-care (01) ==
LOC: ED 10:12 → SDC 13:11 → ACINP 13:12
PROVIDERS: Emergency Provider Emergency Medicine; PCP Family Medicine; Visit Provider Urology
PROC: (CPT 50590; principal; 2023-12-29 16:05)
DX: N13.2 Hydronephrosis with renal and ureteral calculous obstruction (principal); Z85.51 Personal history of malignant neoplasm of bladder; J45.909 Unspecified asthma, uncomplicated
CPT/HCPCS: 50590; 52332; 00873; 74176; 80048; 81001; 85025; 99284; J7030; J7120; A4216; C1769; C2617; J2405

== ENCOUNTER → 2024-01-05 | Outpatient (CLI) | payer BC, SELFPAY ==
--- OUTSIDE RECORDS SUMMARY | 2024-01-05 16:32 | XMS RPT_ITS | CCD ---
Author Name Unknown Address [address] [place] [address] Organization [facility] Care Team Providers Care Display Artist Name Role Phone Caitie Sousa Primary Care [...] Translations: [LATEX] Propensity to adverse reactions 05-09-2010 [facility] Work Phone: (10 sources) levoFLOXacin; Translations: [LEVOFLOXACIN] Drug Allergy 04-23-2016 GI Upset [facility] (10 sources) Meperidine; Translations: [MEPERIDINE (PF)] Drug Allergy 05-09-2010 [facility] Work Phone: Medications Completed/Discontinued Medications Medication [...] Author Start: 11-11-2024 DIABETES SCREEN DIABETES SCREEN [facility] Start: 11-11-2024 Diabetes Screening Diabetes Screenin g [facility] Start: 07-30-2023 Influenza vaccination [facility] Start: 11-29-2022 DEPRESSION ASSESSMENT [facility] Start: 07-30-2022 Influenza vaccination [facility] Start: 11-29-2021 DEPRESSION ASSESSMENT [facility] Start: 07-30-2021 Influenza vaccination INFLUENZA (#1) [facility] Start: 2015 SHINGRIX VACCINE (1 of 2) SHINGRIX V ACCINE (1 of 2) [facility] Start: 2010 COLOGUARD (FIT-DNA) COLOGUARD (FIT-D NA) [facility] Start: 2010 Colonoscopy COLONOSCOPY [facility] Start: 2010 COLORECTAL CANCER SCREENING COLORECTAL CANCER SCREENING [facility] Start: [address] COLONOGRAPHY [facility] Start: 2010 FECAL OCCULT BLOOD FECAL OCCULT BLOO D [facility] Start: 2010 Lipid 1996 panel - S kishore or Plasma Lipid Screening [facility] Start: 2010 LIPID SCREEN LIPID SCREEN [facility] Start: 2010 SIGMOIDOSCOPY SIGMOIDOSCOPY [facility] Start: 2005 Mammography [facility] Start: 1995 HPV TESTING HPV TESTING [facility] Start: 1986 PAP TESTING PAP TESTING [facility] Start: 1984 Urine microalbumin profile [facility] Start: 1977 Adult depression scr eening assessment DEPRESSION SCREENING [facility] Start: 1970 COVID-19 VACCINE (#1) COVID-19 VACCI NE (#1) [facility] Start: 1970 COVID-19 VACCINE (1) COVID-19 VACCIN E (1) [facility] Start: 1965 COVID-19 VACCINE (#1) COVID-19 VACCI NE (#1) [facility] Start: 1965 HEPATITIS B (1 of 3 - 3-dose series) HEPATITIS B (1 of 3 - 3-dose series) [facility] Start: 1965 Hepatitis B Vaccine (1 of 3 - 3-dose series) Hepatitis B Vaccine (1 of 3 - 3-dose series) [facility] Payers Date Payer Category Payer Unknown [employer] PPO OOS [id number] 2009-Present [phone] [address] [place] [address] PPO [id number] 2009 Unknown [employer] PPO OOS [id number] 2009-Present [phone] [address] [place] [address] PPO [id number] Social History Date Type Detail Facility Start: 09-20-2011 End: 04-27-2023 Tobacco smoking status NHIS Never smoked tobacco [facility] Work Phone: Start: 09-20-2011 End: 04-27-2023 Tobacco use and exposure Smokeless tobacco non-user [facility] Work Phone: Start: 01-19-2022 End: 04-27-2023 Alcohol intake Lifetime non-drinker (finding) [facility] Start: 11-25-2021 History SDOH Alcohol Frequency 1 [facility] Start: 1965 Sex Assigned At Not on file [facility] Start: 02-15-2022 End: 10-28-2022 Exposure to SARS-CoV-2 (event) Not sure [facility] Start: 04-27-2023 History of Social function [facility] Start: 04-27-2023 Tobacco use panel [facility] National Score (1-10 0), lower number is lower risk 99 [facility] Clinical Notes 02-25-2022 to 09-29-2023 Lyn Lopez LPN - 09/29/2023 1:51 PM Urvashi Means MD - 09/29/2023 1:00 PM 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 Author Type: ? Type: Progress Notes Filed: 09/29/2023 1:52 PM Note Text: DATE OF PHOTOS: 09/29/2023 Body Part: Full Face and Neck Lena Yumiko [facility] September 29, 2023 1:52 PM [facility] 09-29-2023 Note HNO ID: [id number] Author: Urvashi Kelly MD Service: ? Author [...] []polydipsi (more content not included)... [facility] 09-29-2023 History of Present illness Narrative DATE OF PHOTOS: 09/29/2023 Body Part: Full Face and Neck Lena Calderon LPN September 29, 2023 1:52 PM documented in this encounter [facility] 09-29-2023 History of Present illness Narrative [...] Past Histories independently gathered by the clinical client support coordinator and the remaining scribed note accurately describes my personal service to the patient. I spent a total of 30 minutes on the date of the service which included preparing to see the patient, [id number] patient care, completing clinical documentation, obtaining and/or reviewing separately obtained history, performing a medically appropriate examination and counseling and educating the patient/family/caregiver. Urvashi Kelly MD PhD September 29, 2023 2:24 PM This note was generated with voice recognition software and may contain errors, including spelling, grammar, syntax and misrecognition of what was dictated, that are not fully corrected. documented in this encounter [facility] 04-27-2023 Note HNO ID: [id number] Author: Lyn Lopez LPN Service: ? Author Type: ? Type: Progress Notes Filed: 04/27/2023 1:52 PM Note Text: DATE OF PHOTOS: 04/27/2023 Body Part: Full Face and Neck Lyn Lopez LPN April 27, 2023 1:52 PM [facility] 04-27-2023 Note HNO ID: [id number] Author: Urvashi Kelly MD Service: ? Author [...] auscult (more content not included)... [facility] 04-27-2023 History of Present illness Narrative DATE OF PHOTOS: 04/27/2023 Body Part: Full Face and Neck Lyn Lopez LPN April 27, 2023 1:52 PM documented in this encounter [facility] 10-28-2022 Note HNO ID: [id number] Author: Lena Wellington LPN Service: ? Author Type: LICENSED NURSE Type: Progress Notes Filed: 10/28/2022 3:06 PM Note Text: DATE OF PHOTOS: 10/28/2022 Body Part: Neck Lena Wellington LPN October 28, 2022 3:06 PM [facility] 10-28-2022 Note HNO ID: [id number] Author: Urvashi eKlly MD Service: ? Author Type: Physician Type: [...] Past Histories independently gathered by the clinical client support coordinator and the remaining scribed note accurately describes my personal service to the patient. I spent a total of 30 minutes on the date of the service which included preparing to see the patient, face- (more content not included)... [facility] 10-28-2022 History of Present illness Narrative DATE OF PHOTOS: 10/28/2022 Body Part: Neck Lena Wellington LPN October 28, 2022 3:06 PM documented in this encounter [facility] 10-28-2022 History of Present illness Narrative [...] Past Histories independently gathered by the clinical client support coordinator and the remaining scribed note accurately describes my personal service to the patient. I spent a total of 30 minutes on the date of the service which included preparing to see the patient, [id number] patient care, completing clinical documentation, obtaining and/or reviewing separately obtained history, performing a medically appropriate examination and counseling and educating the patient/family/caregiver. Urvashi Kelly MD PhD October 28, 2022 4:12 PM This note was generated with voice recognition software and may contain errors, including spelling, grammar, syntax and misrecognition of what was dictated, that are not fully corrected. documented in this encounter [facility] 05-27-2022 History of Present illness Narrative DATE OF PHOTOS: 05/27/2022 Body Part: Full Face (neck lift) Lena Wellington LPN May 27, 2022 11:54 AM documented in this encounter [facility] 05-27-2022 History of Present illness Narrative [...] Past Histories independently gathered by the clinical client support coordinator and the remaining scribed note accurately describes my personal service to the patient. I spent a total of 30 minutes on the date of the service which included preparing to see the patient, [id number] patient care, completing clinical documentation, obtaining and/or reviewing separately obtained history, performing a medically appropriate examination and counseling and educating the patient/family/caregiver. Urvashi Kelly MD PhD May 27, 2022 12:58 PM This note was generated with voice recognition software and may contain errors, including spelling, grammar, syntax and misrecognition of what was dictated, that are not fully corrected. documented in this encounter [facility] 02-25-2022 History of Present illness Narrative [id number] DATE OF PHOTOS: February 25, 2022 TAKEN WITH LENS: 3-7ft / 70mm x5 HEAD/NECK POSES:AP/OP/LP DIAGNOSIS: NECK / TRUNK: NECKLIFT RELEASE: PATIENT SIGNED PHOTO RELEASE FOR CLINICAL USE & SURGERY Lyn Lopez LPN documented in this encounter [facility] 02-25-2022 History of Present illness Narrative [...] which included preparing to see the patient, [id number] patient care, completing clinical documentation, obtaining and/or reviewing separately obtained history, performing a medically appropriate examination and counseling and educating the patient/family/caregiver. Urvashi Kelly MD PhD February 25, 2022 5:37 PM This note was generated with voice recognition software and may contain errors, including spelling, grammar, syntax and misrecognition of what was dictated, that are not fully corrected. 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 Advance Directive(s) 01/14/2022 1:12 PM [...] or prosecute any alcohol or drug abuse patient.[facility] the event this information is protected by the Federal Confidentiality of Alcohol and Drug Abuse Patient Records regulations: The Federal rules restrict any use of the information to criminally investigate or prosecute any alcohol or drug abuse patient.[facility] the event this information is protected by the Federal Confidentiality of Alcohol and Drug Abuse Patient Records regulations: The Federal rules restrict any use of the information to criminally investigate or prosecute any alcohol or drug abuse patient.[facility] the event this information is protected by the Federal Confidentiality of Alcohol and Drug Abuse Patient Records regulations: The Federal rules restrict any use of the information to criminally investigate or prosecute any alcohol or drug abuse patient.[facility] the event this information is protected by the Federal Confidentiality of Alcohol and Drug Abuse Patient Records regulations: The Federal rules restrict any use of the information to criminally investigate or prosecute any alcohol or drug abuse patient.[facility] the event this information is protected by the Federal Confidentiality of Alcohol and Drug Abuse Patient Records regulations: The Federal rules restrict any use of the information to criminally investigate or prosecute any alcohol or drug abuse patient.[facility] the event this information is protected by the Federal Confidentiality of Alcohol and Drug Abuse Patient Records regulations: The Federal rules restrict any use of the information to criminally investigate or prosecute any alcohol or drug abuse patient.[facility] the event this information is protected by the Federal Confidentiality of Alcohol and Drug Abuse Patient Records regulations: The Federal rules restrict any use of the information to criminally investigate or prosecute any alcohol or drug abuse patient.[facility] the event this information is protected by the Federal Confidentiality of Alcohol and Drug Abuse Patient Records regulations: The Federal rules restrict any use of the information to criminally investigate or prosecute any alcohol or drug abuse patient.[facility] Reason for Visit (unrecogniz ed section and content) Reason Comments Post Op neck lift Reason Comments Post Op Reason Comments Post Op Rhytidectomy Reason Comments Post Op Revision of neck Care Teams (unrecognized sec tion and content) Display Artist Relationship Specialty Start Date End Date Caitie Sousa [address] [place] [address] PCP - General Family Practice 12/23/21 Display Artist Relationship Specialty Start Date End Date Caitie Sousa [address] [place] [address] PCP - General Family Practice 12/23/21 Display Artist Relationship Specialty Start Date End Date Caitie Sousa [address] [place] [address] PCP - General Family Medicine 12/23/21 Display Artist Relationship Specialty Start Date End Date Caitie Sousa [address] [place], [place] [address] PCP - [facility] Medicine 12/23/21 Display Artist Relationship Specialty Start Date End Date Caitie Sosua MD [address] [place] [address] PCP - General Family Medicine 12/23/21 Display Artist Relationship Specialty Start Date End Date Caitie Sousa MD [address] [place] [address] PCP - General Family Medicine 12/23/21 Display Artist Relationship Specialty Start Date End Date Caitie Sousa MD [address] [place] [address] PCP - General Family Medicine 12/23/21 INFORMATION [...] ON THE PRIMARY CLINICAL RECORDS. [facility]. provides no warranty or guarantee of the accuracy or completeness of information in this document.
== END | disposition home or self-care (01) ==
LOC: LABSPEC 11:56
PROVIDERS: PCP Family Medicine; Referring Provider Urology; Visit Provider Urology
DX: N20.0 Calculus of kidney (principal)
CPT/HCPCS: 82360

== ENCOUNTER → 2024-03-28 | Outpatient (CLI) | payer BC, SELFPAY ==
--- NOTE | 2024-03-28 16:49 | CT_ITS ---
STUDY: CT CHEST WITH CONTRAST REASON FOR EXAM: Female, 59 years old. ABNORMAL LUNG FINDING ON CT ABDOMEN RADIATION DOSAGE (If Supplied By Facility): CTDIvol = ( 10.70 ) mGy, DLP = ( 306.20 ) mGycm TECHNIQUE: Transaxial imaging was performed following intravenous administration of IV 100mL Isovue-370. Multiplanar coronal and sagittal images were reformatted. Individualized dose optimization techniques were used for this CT. COMPARISON: No relevant priors. FINDINGS: CHEST There is a 1.1 cm hypodensity in the lower pole of the right lobe of the thyroid. Hyperinflation. There is evidence of emphysematous changes with centrilobular changes in both upper and lower lobes of both lungs. No mass lesion is seen. There is no demonstrated pleural abnormality. Normal heart and pericardium. No coronary calcification is seen. Normal mediastinum. Normal hilar regions. Normal unenhanced pulmonary arteries. Normal aorta arch and descending thoracic aorta. Normal osseous structures. There is no demonstrated abnormality of the visualized upper abdomen. CT/Chest WITH Contrast IMPRESSION: Hyperinflation. Emphysematous changes with centrilobular emphysema. Electronically Signed: Rohan Ramirez MD at 10:07 EDT ,
== END | disposition home or self-care (01) ==
PROVIDERS: PCP Family Medicine; Referring Provider Family Medicine; Visit Provider Family Medicine
DX: R91.8 Other nonspecific abnormal finding of lung field (principal)
CPT/HCPCS: 71260; Q9967

== ENCOUNTER → 2024-04-13 | Outpatient (CLI) | payer BC, SELFPAY ==
[2024-04-13 18:52] LABS: Free T3 2.3 pg/mL (2.18-3.98); Rheumatoid Factor < 10.0 IU/mL (<15)
[2024-04-17 15:31] LABS: Anti-Smooth Muscle ABS 4 Units (0-19); CCP IgG Antibodies 9 units (0-19); Cytoplasmic Ab (C-ANCA) <1:20 titer (Neg:<1:20); Perinuclear Ab (P-ANCA) <1:20 titer (Neg:<1:20); Thyroid Stim Immunoglob <0.10 IU/L (0.00-0.55)
[2024-04-18 15:08] LABS: ANTINUCLEAR ANTIBODIES DIRECT Negative (Negative); Alpha Antitrypsin Serum 84 mg/dL (101-187); Anti-Histone Abs 1.3 Units (0.0-0.9); Anti-Jo <0.2 AI (0.0-0.9); Anti-Scleroderma-70 AB <0.2 AI (0.0-0.9); SJOGREN'S Anti-SS-A test < 0.2 AI (0.0-0.9); SJOGREN'S Anti-SS-B test < 0.2 AI (0.0-0.9); Smith Ab <0.2 AI (0.0-0.9)
== END | disposition home or self-care (01) ==
LOC: LAB 16:45
PROVIDERS: PCP Family Medicine; Referring Provider Family Medicine; Visit Provider Family Medicine
DX: M35.9 Systemic involvement of connective tissue, unspecified (principal); E04.1 Nontoxic single thyroid nodule; J45.909 Unspecified asthma, uncomplicated; M25.50 Pain in unspecified joint
CPT/HCPCS: 36415; 82103; 83516; 84439; 84443; 84445; 84481; 86038; 86200; 86235; 86256; 86431

== ENCOUNTER → 2024-04-14 | Outpatient (CLI) | payer BC, SELFPAY | END | disposition home or self-care (01) | LOC: PSN 12:49 | PROVIDERS: PCP Family Medicine; Referring Provider Family Medicine; Visit Provider Family Medicine | DX: R91.8 Other nonspecific abnormal finding of lung field (principal) | CPT/HCPCS: 94060; 94726; 94729 ==

== ENCOUNTER → 2024-04-17 | Outpatient (CLI) | payer BC, SELFPAY ==
--- NOTE | 2024-04-17 | CYSPIN_PTH ---
PATIENT: TREASURE PÉREZ LOC: [facility] U#:[id number] AGE/SX: 59/F ROOM: RE04/17/[address]: Dr. Pantera Willis MD : 1965 BED: DIS: 04/17/2024 SPEC #: [id number] RECD: 04/18/24 10:16 STATUS: BUCK FARHANA #: [id number] JUAN CARLOS: 04/17/24 00:[address]: Pantera Willis DEPT: CYTOLOGY RECD BY: Lakisha Pak ENTERED: 04/18/24 10:16 SP TYPE: CYSPIN FL OTHR DR: No Primary Care Phys Tissues: Urine Procedures: Pap Stain (control) Special Stain Group II Cytospin Fluid HEADER OPERATION: Not noted PRE-OP DIAGNOSIS: Malignant neoplasm of posterior wall of bladder TISSUE SUBMITTED: Urine for cytology DIAGNOSIS CYTOLOGY Urine for cytology (cytospin): Negative for high-grade urothelial carcinoma. Nikki Category system II. See comment. AM/mr 04/18/2024 COMMENT The Nikki System for urine cytology diagnostic categorization was used in the evaluation of this case. The specimen primarily consists of benign squamous epithelial cells. Clinical correlation is suggested. CYTOLOGY STUDY Slides are reviewed. CYTOLOGY GROSS Received is 60 ml of gold cloudy fluid labeled with the patient's name and and designated per the requisition as urine. Submitted for cytology preparation. Mr 04/18/2024 TC:5 CPT: 32232
[2024-04-17 16:22] LABS: Cytology, Body Fluid / CSF SEE PATHOLOGY REPORT
== END | disposition home or self-care (01) ==
LOC: LABSPEC 15:24
PROVIDERS: Referring Provider Urology; Visit Provider Urology
DX: C67.4 Malignant neoplasm of posterior wall of bladder (principal)
CPT/HCPCS: 88108; 88313

== ENCOUNTER → 2024-05-02 | Outpatient (CLI) | payer BC, SELFPAY ==
--- NOTE | 2024-05-02 12:17 | US_ITS ---
STUDY: THYROID ULTRASOUND REASON FOR EXAM: Female, [address] thyroid nodule TECHNIQUE: Ultrasound evaluation of the thyroid was performed with real-time and static bonilla-scale imaging. COMPARISON: CT of the chest dated March 28, 2024 FINDINGS: RIGHT LOBE: The right lobe of the thyroid gland measures 4.7 x 1.4 x 1.8 cm. There is a homogeneous echotexture. A benign cyst with some mild internal debris is present in the midpole of the right lobe measuring 1.5 x 0.9 x 0.8 cm compatible with benign thyroid colloid cyst. No solid nodules are present. LEFT LOBE: The left lobe of the thyroid gland measures 4.7 x 1.3 x 1.6 cm. There is a homogeneous echotexture. A small primarily hypoechoic ovoid nodule is present in the anterior medial and upper pole region of the left lobe measuring 7 x 6 mm in diameter. No additional nodules are present. This is compatible with benign hyperplastic or adenomatous nodule. There are no suspicious features on this exam. ISTHMUS: The isthmus measures 3.4 mm. The regional lymph nodes are normal. US/Thyroid IMPRESSION: 1. 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 2. Benign adenoma or hyperplastic nodule of the left lobe of the thyroid gland. 3. TR2: 2 points = not suspicious ACR Thyroid Imaging Reporting and Data System (ACR TI-RADS) Reference: COMPOSITION (choose 1): Cystic or almost completely cystic - 0 points Spongiform- 0 points Mixed cystic and solid - 1 point Solid almost completely solid - 2 points ECHOGENICITY (choose 1): Anechoic space - 0 points Hyperechoic or isoechoic-1 point Hypoechoic-2 points Very hypoechoic-3 points SHAPE (choose 1): : Wider than tall-0 points Taller than wide-3 points MARGINS ( smooth, lobular, ill-defined) ECHOGENIC FOCI (macro or microcalcifications) Scoring and classification TR1: 0 points = benign TR2: 2 points = not suspicious TR3: 3 points = mildly suspicious TR4: 4-6 points = moderately suspicious TR5: ?7 points = highly suspicious Recommendations TR1: no FNA required TR2: no FNA required TR3: ?1.5 cm follow up, ?2.5 cm FNA = follow up: 1, 3 and 5 years TR4: ?1.0 cm follow up, ?1.5 cm FNA = follow up: 1, 2, 3 and 5 years TR5: ?0.5 cm follow up, ?1.0 cm FNA = annual follow up for up to 5 years FNA biopsy is recommended for suspicious lesions (TR3-TR5) with the above size criteria. If there are multiple nodules, the two with the highest ACR TI-RADS scores should be sampled (rather than the two largest), with largest size being used a tie-breaker if there are multiple nodules of the same classification. Electronically Signed: Matt Singh MD at 13:25 EDT Reading Location ID and State: [facility] / [place] , Service support ,
== END | disposition home or self-care (01) ==
PROVIDERS: PCP Family Medicine; Referring Provider Family Medicine; Visit Provider Family Medicine
DX: E04.1 Nontoxic single thyroid nodule (principal)
CPT/HCPCS: 76536

== ENCOUNTER → 2024-05-18 | Outpatient (CLI) | payer BC, SELFPAY ==
--- NOTE | 2024-05-18 13:36 | BI_ITS ---
MAMMOGRAPHY - BILATERAL SCREENING REASON FOR EXAM: Female, 59 years old. Routine annual screening examination. PERTINENT HISTORY: Mother with breast cancer. Grandmother with breast cancer. Aunt with breast cancer. TECHNIQUE: Digital bilateral breast john (3D mammographic acquisition) in the CC and MLO projections. 2-D mediolateral oblique (MLO) and craniocaudad (CC) views of both breasts were obtained. CAD: Full Field Digital Mammography with Computer Added Detection was performed. COMPARISON: Comparison is made with prior study dated April 06, 2023 and March 25, 2022. FINDINGS: Breast Composition: There are scattered areas of fibroglandular density. There are no dominant masses or suspicious calcifications. No other significant abnormalities are identified. There has been no significant change since the prior study. BI/SCRN MAMM (CAD)W/JOHN BILAT IMPRESSION: Stable bilateral screening mammogram. Yearly follow-up mammogram recommended. (A) ASSESSMENT CATEGORY: BIRADS Category 1: Negative. A letter regarding these results will be sent to the patient by the facility within 30 days. Approximately 10% of breast cancers are not detected by mammography. A normal mammogram should not delay biopsy of a clinically suspicious abnormality. [id number] Electronically Signed: Rohan Ramirez MD at 14:37 EDT ,
[2024-05-18 18:26] LABS: ALB/GLOB Ratio 1.1 RATIO (0.9-2.4); AST(SGOT) 14 U/L (15-37); Alanine Aminotransfer ALT/SGPT 23 U/L (13-56); Albumin, Serum 3.6 g/dL (3.2-5.0); Alkaline Phosphatase 68 U/L (45-117); Anion Gap 8 (5-15); BUN 16 mg/dL (7-18); Chloride 106 mmol/L (98-107); EST Glomerular Filtration Rate 60 mL/min (>60); Est Glom Filt Rate - Afr Amer 73 mL/min (>60); Globulin 3.2 g/dL (2.2-4.2); Glucose 97 mg/dL (74-106); Potassium 4.2 mmol/L (3.5-5.1); Protein, Total 6.8 g/dL (6.4-8.2); Sodium Level 142 mmol/L (136-145)
[2024-05-20 04:09] LABS: GGTP 10 IU/L (0-60)
== END | disposition home or self-care (01) ==
LOC: OPBI 13:35
PROVIDERS: PCP Family Medicine; Referring Provider Obstetrics & Gynecology; Visit Provider Obstetrics & Gynecology
DX: Z12.31 Encounter for screening mammogram for malignant neoplasm of breast (principal); E88.01 Alpha-1-antitrypsin deficiency
CPT/HCPCS: 36415; 77063; 77067; 80053; 82977

== ENCOUNTER 2024-07-11 12:43 | Outpatient (RCR) | payer BC, SELFPAY ==
--- NOTE | 2024-07-12 10:27 | HP.PTEVAL ---
Patient's Visit Information Visit Information Visit Information: TREASURE PÉREZ is a 59 year old F referred to Physical Therapy by Dr. Benjamin Pillai DPM with a diagnosis of B heel spurs and B metatarsalgia. Date of Evaluation: 07/11/24 Physical Therapist: Lawrence Resendiz DPT Visit Plan Frequency: 1x/Week Duration: 6 Weeks Plan: Pt. desires to complete exercises on her own at this point in time. I gave her foot intrinsic strengthening, post tib strengthening and calf stretching. Subjective Subjective: Pt. is here today for B heel spurs and B metatarsalgia. Pt. reports being symptoms for a few years, but has managed well with use of orthotics. Pt. just recently got new orthotics and was recommend to get some exercises for her feet as well. Pt. reports having good relief with orthotics, but does like to go barefoot in home. Tends to be more painful as the day goes on and when barefoot. She reports doing some stretching and has had resting night splints at home in the past, not currently using. Pt. is hopeful to reduce symptoms in order to complete all work and daily activities without limitations. Pain R foot: Pain Intensity (Out of 10): 2 Pain Intensity Range: 0 and 3 L foot: Pain Intensity (Out of 10): 2 Pain Intensity Range: 0 and 3 Objective Objective: POSTURE: Pt. has fairly high arches bilaterally. Pt. has some slight drop of pronation during SLS, but not a large amount. PALPATION: pt. has tenderness along longitudinal arch and metatarsals bilaterally. NEURO: normal throughout. ROM: normal ankle ROM, except DF bilaterally. R side 12deg, L side 13deg. MMT: Pt. has good strength throughout B ankles, slight weakness at post tib bilat and B foot intrinsics. GAIT: fairly normal without much increase in symptoms. Slight pronation during gait without shoes on. Balance/Special Test Scores Lower Extremity Functional Score: 80 Goals Goal 1:: LTG: Pt. to be I with HEP for foot and ankle strengthening. Goal Time Frame: 4-6 Weeks Goal 2:: LTG: Pt. to have increased B calf length increased to 20deg. Goal Time Frame: 4-6 Weeks Goal 3:: LTG: Pt. to be able to walk for unlimited distances without increase in symptoms Goal Time Frame: 4-6 Weeks Rehabilitation Potential Physical Therapy Diagnosis: Pt. has signs and symptoms consistent with B heel spurs and B metatarsalgia. Pt. would benefit from PT to work on some post tib and foot intrinsic strengthening. Rehabilitation Potential: Excellent Anticipated Interventions Patient/Client Instruction: Educate patient on: Condition, Plan of Care, Risk Factors and Benefits of Fitness Program For the Purpose of:: To improve decision making, To facilitate caregiver knowledge, To improve self management, To prevent re-injury and To improve ability to perform tasks related to life management Therapeutic Exercise to Include: Strength training, Power training, Endurance training, Passive ROM and Active ROM For the Purpose of:: To decrease pain, To increase ROM, To improve nutrient delivery to tissue, To increase oxygenation perfusion and To improve muscle performance and motor function Text: Thank you for the opportunity to evaluate your patient. For Medicare and Medicare HMO plans, please review the plan of care and approve it. It will need to be FAXED BACK to us at [phone] for Medicare purposes. For Medicare only, by signing this I certify the plan of care. Please let me know if there are questions or concerns regarding this plan of care. Physician Signature: Date:
== END 2024-07-11 19:00 | disposition home or self-care (01) ==
LOC: PT 12:43
PROVIDERS: PCP Family Medicine; Referring Provider Podiatrist; Visit Provider Podiatrist
DX: M77.31 Calcaneal spur, right foot (principal); M77.32 Calcaneal spur, left foot; M77.41 Metatarsalgia, right foot; M77.42 Metatarsalgia, left foot; M19.90 Unspecified osteoarthritis, unspecified site
CPT/HCPCS: 97161

== ENCOUNTER → 2024-11-07 | Outpatient (CLI) | payer BC, SELFPAY ==
--- NOTE | 2024-11-07 12:59 | US_ITS ---
EXAM: US SOFT TISSUES HEAD AND NECK, THYROID CLINICAL INDICATION: NODULE TECHNIQUE: Greyscale and color doppler imaging was performed of the thyroid gland. COMPARISON: Thyroid ultrasound, 05/02/2024. FINDINGS: LEFT THYROID LOBE: The left thyroid lobe measures 4.5 x 1.3 x 1.3 cm. There is a 4 mm left thyroid cyst. TI-RADS points: 0. TI-RADS category: TR1. This nodule is benign and no FNA or follow-up is necessary. There is a 7 mm spongiform left-sided thyroid nodule. TI-RADS points: 0. TI-RADS category: TR1. This nodule is benign and no FNA or follow-up is necessary. Homogeneous echotexture with normal vascularity. RIGHT THYROID LOBE: The right thyroid lobe measures 4.5 x 1.6 x 1.6 cm. Right-sided thyroid cysts are present, the largest measuring 1.6 cm. Homogeneous echotexture with normal vascularity. ISTHMUS: The thyroid isthmus measures 0.2 cm. No thyroid nodules are present. US/Thyroid IMPRESSION: TI-RADS (TR) 1 lesions bilaterally. No follow-up or FNA is necessary. Electronically Signed: Jean Carlos Travis DO at 22:35 EST ,
== END | disposition home or self-care (01) ==
PROVIDERS: PCP Family Medicine; Referring Provider Family Medicine; Visit Provider Family Medicine
DX: E04.1 Nontoxic single thyroid nodule (principal)
CPT/HCPCS: 76536

== ENCOUNTER → 2024-12-11 | Outpatient (CLI) | payer BC, SELFPAY ==
[2024-12-11 19:00] LABS: Vitamin D,25 Hydroxy 56.3 ng/mL
== END | disposition home or self-care (01) ==
LOC: MFPLAB 15:40
PROVIDERS: PCP Family Medicine; Referring Provider Family Medicine; Visit Provider Family Medicine
DX: C67.4 Malignant neoplasm of posterior wall of bladder (principal); E55.9 Vitamin D deficiency, unspecified
CPT/HCPCS: 36415; 82306

== ENCOUNTER → 2024-12-25 | Outpatient (CLI) | payer BC, SELFPAY | END | disposition home or self-care (01) | LOC: LABSPEC 15:23 | PROVIDERS: PCP Family Medicine; Visit Provider Urology | DX: C67.4 Malignant neoplasm of posterior wall of bladder (principal) ==

== ENCOUNTER → 2025-01-30 | Outpatient (CLI) | payer BC, SELFPAY ==
--- NOTE | 2025-01-30 15:05 | RAD_ITS ---
PROCEDURE: Kidney stone. TECHNIQUE: Single view abdomen. COMPARISON: None FINDINGS: Large amount of fecal material is seen throughout the colon. No suspicious calcifications. The bones are unremarkable. RAD/Abdomen Single View IMPRESSION: Large amount of fecal material is seen throughout the colon. Reading Location: [id number]
== END | disposition home or self-care (01) ==
LOC: MTRAD 15:02
PROVIDERS: PCP Family Medicine; Referring Provider Urology; Visit Provider Urology
DX: N20.0 Calculus of kidney (principal)
CPT/HCPCS: 74018

== ENCOUNTER → 2025-03-21 | Outpatient (CLI) | payer BC, SELFPAY ==
--- NOTE | 2025-03-21 08:50 | US_ITS ---
PROCEDURE: ABD LIMITED W/ ELASTOGRAPHY REASON FOR EXAM: ALPHA-1 ANTITRYPSIN DEFICIENCY AND NAFLD COMPARISON: None. TECHNIQUE: Right upper quadrant abdominal ultrasound. Christopher ElastQ Imaging shear wave elastography for non-invasive assessment of liver tissue stiffness. Christopher EPIQ Elite. FINDINGS: LIVER: Size: Unremarkable Length: 13.2 cm Echotexture: Diffusely echogenic suggesting fatty infiltration Contour: Normal Lesions: None identified Elastography: EQI Med: 7.1 kPa EQI Med Marvin: 1.53 m/s IQR/Med: 26 %* GALLBLADDER: Normal COMMON BILE DUCT: Normal it measures 4 mm.. PANCREAS: Normal Visualized portions of the right kidney are unremarkable. No right upper quadrant ascites. US/ABD Limited w/ Elastography IMPRESSION: MODERATE HEPATIC FIBROSIS Fatty infiltration of the liver. Reference Values: SRU <1.37 m/s (5.7kPa): No to mild fibrosis 1.37 m/s - 2.2 m/s: Moderate to severe fibrosis >2.2 m/s (15kPa): Significant fibrosis / cirrhosis METAVIR Score F2 or higher: 1.34 m/s (5.7kPa) F3 or higher: 1.55 m/s (7.3kPa) F4: 1.80 m/s (10kPa) * If the IQR/Med is >30%, the variance in the measurements is a large and the a ccuracy of the measurement may be in question. Reading Location: [place] [id number]
== END | disposition home or self-care (01) ==
LOC: OPUS 08:49
PROVIDERS: PCP Family Medicine; Referring Provider Internal Medicine Gastroenterology; Visit Provider Internal Medicine Gastroenterology
DX: E88.01 Alpha-1-antitrypsin deficiency (principal)
CPT/HCPCS: 76705; 76981

== ENCOUNTER 2025-03-23 10:53 | Day surgery (SDC) | payer BC, SELFPAY ==
[2025-03-23] VITALS (10 sets, daily range): BP systolic 86–123; BP diastolic 56–78; PULSE 67–90; RESP 16–18; TEMP 36.1–36.8; O2SAT 93–100; BMI 25.8
[2025-03-23] MEDS: Lactated Ringers 1,000 ML 15 ML IV (11:29)
--- NOTE | 2025-03-23 11:37 | PCM.PRE.AN2 ---
ASA Classification* ASA Classification ASA Classification: 2 Assessment & Plan Anesthesia* Anesthesia Assessment Anesthesia Assessment: Discussed sedation and/or anesthesia options, risks, benefits, and alternatives with patient/parents/legal guardian/POA. Questions invited. The patient/parents/legal guardian/POA seems to understand and agrees to proceed with anesthesia plan. Reviewed the physical assessment, medical history, allergy history and patient home medications list prior to surgery/procedure/anesthetic and documented any changes. Performed airway and anesthesia risk assessments. Anesthesia Type Anesthesia Type: MAC History Source History Obtained from:: Patient and Chart Anesthesia Focused Assessment* Temperature: 98.1 F Pulse Rate: 74 Blood Pressure: 123/68 Respiratory Rate: 16 Pulse Ox: 99 Oxygen Delivery Method: Room Air Airway Assessment Mouth opens: >3 cm Mallampati Score: I Teeth Condition: Caps/Crowns (upper left crown;intact, crown lower right, intact) Neck Range of motion (ROM): Full ROM Focused Labs Anesthesia Preop lab: CBC WBC 9.1 K/mm3 (4.4-11.0) 12/29/23 08:10 12/29/23 RBC 4.70 M/mm3 (4.2-5.4) 12/29/23 08:10 12/29/23 Hgb 13.8 g/dL (12.0-15.0) 12/29/23 08:10 12/29/23 Hct 42.8 % (37-47) 12/29/23 08:10 12/29/23 Plt Count 214 K/mm3 (150-450) 12/29/23 08:10 12/29/23 CHEMISTRY Potassium 4.2 mmol/L (3.5-5.1) 05/18/24 14:08 05/18/24 Sodium 142 mmol/L (136-145) 05/18/24 14:08 05/18/24 BUN 16 mg/dL (7-18) 05/18/24 14:08 05/18/24 Creatinine 1.00 mg/dL (0.55-1.02) 05/18/24 14:08 05/18/24 Glucose 97 mg/dL (74-106) 05/18/24 14:08 05/18/24 TSH 2.00 uIU/mL (0.358-3.74) 04/13/24 16:47 04/13/24 COAG Urine Test Negative Negative 02/07/16 12:00 02/07/16 Pre-Assessment Diagnosis/Proposed Procedure Planned Operative Procedure(s): COLONOSCOPY Anesthesia History Anesthesia History - motor route carrier: Anesthesia History - motor route carrier Hx Hospitalization No 03/19/25 14:14 Any Problems With Anesthesia Yes: DIFFICULT TO AWAKEN 03/19/25 14:14 Cholinesterase deficiency No 03/19/25 14:14 You/Your Family Experience No 03/19/25 14:14 fever (hyperthermia) with Relationship Recent Exposure to Contagious No 03/23/25 11:23 Disease Does patient have nerve No 03/19/25 14:14 stimulator Patient instructed to have device shut off --Does patient have Pacemaker No 03/23/25 11:23 or ICD? When Was Last Pacemaker Check QUESTION #4 FULL TEXT: You/Your Family Experience fever (hyperthermia) with Anesthesia Last Oral Intake Last Oral intake: Last Oral Intake NPO since 07:00 03/23/25 11:23 Meds taken in AM with sips of No 03/23/25 11:23 water? Meds patient instructed to take am of surgery PONV PONV - motor route carrier: PONV - motor route carrier Female Yes 03/19/25 14:14 HX of Motion Sickness No 03/19/25 14:14 HX of N/V After Surgery No 03/19/25 14:14 Non-Smoker Yes 03/19/25 14:14 Duration of Surgery greater No 03/19/25 14:14 than 60 minutes Number of Risk Factors 2 03/19/25 14:14 PONV Score Moderate Risk 03/19/25 14:14 Height & Weight Height & Weight: Anesthesia: Height & Weight Height 5 ft 7 in 03/23/25 11:23 Weight: 74.8 kg 03/23/25 11:23 Body Mass Index (BMI) 25.8 03/23/25 11:23 Respiratory Assessment Respiratory Assessment - motor route carrier: Respiratory Tract Infection Hx - motor route carrier Hx Respiratory Tract Infection No: . 03/19/25 14:14 STOP Sleep Apnea STOP Sleep Apnea - motor route carrier: STOP Sleep Apnea - motor route carrier Hx Hypertension No 03/19/25 14:14 Hx Sleep Apnea No 03/19/25 14:14 CPAP BIPAP Do you snore loudly (louder No 03/19/25 14:14 than talking or can be heard Do you often feel tired/ No 03/19/25 14:14 fatigued/ sleepy during daytime? Has anyone observed you stop No 03/19/25 14:14 breathing during sleep? STOP Results Negative 03/19/25 14:14 QUESTION #5 FULL TEXT : Do you snore loudly (louder than talking or can be heard through closed doors)? Tobacco Use History Tobacco Use History - motor route carrier: Tobacco Use History - motor route carrier Tobacco Use Smoking Status Never smoker 03/19/25 14:14 Hx Tobacco Use No 03/19/25 14:14 Years Smoking Packs Smoked per Day Smoking Cessation Date was within the last 15 years Hx Smoking Cessation Date Hx Smoking Cessation Counseling Hematologic Medial History Hematologic Hx - motor route carrier: Hematologic Medical Hx - documentation clerk Hx of Blood Transfusion No 03/19/25 14:14 Hx of Transfusion in last 3 No 03/19/25 14:14 Months Date of Last Transfusion (if within last 3 months) Ever experience any problems No 03/19/25 14:14 with transfusion(s)? Specify any problems Hx of Preganancy in last 3 No 03/19/25 14:14 Months Nurse Filling Out Transfusion VCHRISTIN 03/19/25 14:14 & Questions: Date: 03/19/25 03/19/25 14:14 Time: 14:15 03/19/25 14:14 Patient unable to answer at this time (ie. confused, unrespo /Reproduction History /Reproductive History - motor route carrier: /Reproductive Hx- motor route carrier Hx Now Gestational Age (in weeks): EDC: Hx Hx Para Hx Section SAB Active Medications Active Medications: Current Medications Generic Name Dose Route Start Last Admin Trade Name Freq PRN Reason Stop Dose Admin Lactated Ringer's 1,000 mls @ 15 mls/hr 03/23/25 11:30 03/23/25 11:29 IV 15 mls/hr .Q48H CARRINGTON Administration PFSH Medical History IgA deficiency Wears glasses Cancer History of steroid therapy Arthritis Kidney stones Migraine headache History of ulceration Gastric reflux Non-smoker Asthma Emphysema, unspecified History of echocardiogram Thyroid cyst Autoimmune disease Klhyf-0-[id number] deficiency Emphysema, compensatory Hx of colonic polyp Home Medications ?Medication ?Instructions ?Recorded ?Last Taken ?Type albuterol sulfate 90 mcg/actuation 1 - 2 puff inhalation Q6H PRN 01/22/16 03/22/25 History aerosol inhaler (Ventolin HFA) ASTHMA cholecalciferol (vitamin D3) 25 5,000 unit PO DAILY SUPPLEMENT 01/22/16 03/17/25 History mcg (1,000 unit) tablet (Vitamin D3) CURCUMIN 1,300 mg PO DAILY SUPPLEMENT 06/17/16 03/17/25 History Lactobacillus acidophilus 10 20,000 mmu cells PO DAILY GUT 12/29/23 03/17/25 History billion cell capsule (Probacap) HEALTH magnesium glycinate 200 mg PO QDAY 01/17/25 03/17/25 History omega-3s 650 mg-dha 175 mg-epa 475 1 cap PO QDAY 01/17/25 03/17/25 History mg-algal oil capsule ([place]-3 1300 Vegan) tiotropium bromide 2.5 2 puff inhalation QDAY 01/17/25 03/23/25 History mcg/actuation mist for inhalation vitamin K2 45 mcg capsule 90 mcg PO QDAY 01/17/25 03/17/25 History Allergy/AdvReac Type Severity Reaction Status Date / Time latex AdvReac MILD SKIN Verified 03/23/25 11:12 IRRITATION levofloxacin (From Levaquin) AdvReac MUSCLE Verified 03/23/25 11:12 PAIN, TIGHTNESS, FATIQUE meperidine HCl (From Demerol) AdvReac NAUSEA, BP Verified 03/23/25 11:12 DROPS NSAIDS (Non-Steroidal AdvReac GI ISSUES Verified 03/23/25 11:12 Anti-Inflamma Family History Sister Adenomatous colon polyp Surgical History History of bladder surgery Hx of wisdom tooth extraction Hx of tubal ligation Hx of laparoscopy History of bladder surgery Hx of colonoscopy Social History household members: spouse housing: house current occupational status: employed 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
--- NOTE | 2025-03-23 12:33 | PCM.HP.STD ---
HPI - General General Date of Admission: 03/23/25 Date of Service: 03/23/25 Chief Complaint: Screening: Screening colonoscopy HPI Narrative TREASURE PÉREZ, is a 60 F who presents today for screening colonoscopy. She had a colonoscopy roughly 10 years ago. She does not have any abdominal pain, cramping, chest pain or shortness of breath. She does have alpha-1 antitrypsin deficiency. [facility] Medical History IgA deficiency Wears glasses Cancer History of steroid therapy Arthritis Kidney stones Migraine headache History of ulceration Gastric reflux Non-smoker Asthma Emphysema, unspecified History of echocardiogram Thyroid cyst Autoimmune disease Bppgy-[id number] deficiency Emphysema, compensatory Hx of colonic polyp Home Medications ?Medication ?Instructions ?Recorded ?Last Taken ?Type albuterol sulfate 90 mcg/actuation 1 - 2 puff inhalation Q6H PRN 01/22/16 03/22/25 History aerosol inhaler (Ventolin HFA) ASTHMA cholecalciferol (vitamin D3) 25 5,000 unit PO DAILY SUPPLEMENT 01/22/16 03/17/25 History mcg (1,000 unit) tablet (Vitamin D3) CURCUMIN 1,300 mg PO DAILY SUPPLEMENT 06/17/16 03/17/25 History Lactobacillus acidophilus 10 20,000 mmu cells PO DAILY GUT 12/29/23 03/17/25 History billion cell capsule (Probacap) HEALTH magnesium glycinate 200 mg PO QDAY 01/17/25 03/17/25 History omega-3s 650 mg-dha 175 mg-epa 475 1 cap PO QDAY 01/17/25 03/17/25 History mg-algal oil capsule ([place]-3 1300 Vegan) tiotropium bromide 2.5 2 puff inhalation QDAY 01/17/25 03/23/25 History mcg/actuation mist for inhalation vitamin K2 45 mcg capsule 90 mcg PO QDAY 01/17/25 03/17/25 History Allergy/AdvReac Type Severity Reaction Status Date / Time latex AdvReac MILD SKIN Verified 03/23/25 11:12 IRRITATION levofloxacin (From Levaquin) AdvReac MUSCLE Verified 03/23/25 11:12 PAIN, TIGHTNESS, FATIQUE meperidine HCl (From Demerol) AdvReac NAUSEA, BP Verified 03/23/25 11:12 DROPS NSAIDS (Non-Steroidal AdvReac GI ISSUES Verified 03/23/25 11:12 Anti-Inflamma Family History Sister Adenomatous colon polyp Surgical History History of bladder surgery Hx of wisdom tooth extraction Hx of tubal ligation Hx of laparoscopy History of bladder surgery Hx of colonoscopy Social History household members: spouse housing: house current occupational status: employed 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 Smoking Status: Never smoker substance use type: does not use ROS Constitutional Constitutional: Denies fatigue, fever(s), poor appetite, weight gain or weight loss Gastrointestinal Gastrointestinal: Denies belching, bloating, change in bowel habits, change in stool character, chewing difficulty, coffee ground emesis, constipation, cramping, diarrhea, dyspepsia, dysphagia, early satiety, excessive flatus, fecal incontinence, heartburn, hematemesis, hematochezia, hemorrhoids, loose stools, melena, nausea, odynophagia, rectal bleeding, tenesmus, vomiting or weight changes Vital Signs Vital Signs Vital Signs: 03/23/25 11:23 03/23/25 11:23 03/23/25 11:40 Temperature 98.1 F 98.1 F Temperature Source Temporal Pulse Rate 74 74 Respiratory Rate 16 16 Respiratory Pattern Normal Blood Pressure 123/68 H 123/68 H Blood Pressure Mean 86 Blood Pressure Source Monitor Blood Pressure Position Semi-Fowlers Blood Pressure Location Right Arm Pulse Ox 99 99 Oxygen Delivery Method Room Air Room Air Weight Weight: 164 lb 14.492 oz Body Mass Index (BMI) 25.8 Physical Exam Const alert, oriented x3, no apparent distress and healthy appearing General Appearance: cooperative GI normal to inspection, nondistended, normoactive bowel sounds, soft to palpation, non-tender and non-distended Percussion: normal to percussion Rectal Exam: deferred Assessment & Plan Assessment/Plan (1) Encounter for screening for malignant neoplasm of colon: PLAN: She was explained alternatives, risk and benefits include not withstanding bleeding, infection, sepsis, perforation, need for emergent surgery . She have an ASA of 3.
--- NOTE | 2025-03-23 13:07 | PCM.POST.ANE ---
Anesthesia: Postop Eval I Current Vital Signs Temperature: 97 F Pulse Rate: 71 Blood Pressure: 86/57 Respiratory Rate: 16 Pulse Ox: 99 Oxygen Delivery Method: Room Air Assessment Airway patent: Yes Spontaneous unlabored respirations: Yes Mental status: Awake and Calm nausea: No Vomiting: No Anesthesia Complication: No Fluid Hydration Crystalloid volume administer (ml): 500 Total IV fluid infused: 500 Progress Note Anesthesia document: Postop Eval 1 completed: Yes
--- NOTE | 2025-03-23 13:15 | OP.CCLET_ITS ---
03/23/2025 Rigoberto Beltran Md Re : Colonoscopy procedure for Lori Chaudhary Dear Ruby This procedure was performed on Sunday, March 23, 2025. My impressions and recommendations are as follows: Impressions : - The entire examined colon is normal. - No specimens collected. Recommendations : - Discharge patient to home. - Resume previous diet. - Continue present medications. - Repeat colonoscopy in 10 years for screening purposes. My findings are described in the full procedure note, which is enclosed. If I can be of further assistance, please feel free to contact me at . Sincerely, Bruno Hernandez, 03/23/2025 1:15:02 PM This report has been signed electronically.
--- NOTE | 2025-03-23 13:15 | OP.COLON_ITS ---
Patient Name: Lori Chaudhary Procedure Date: 03/23/2025 12:34 PM Date of : 1965 Age: 60 Procedure: Colonoscopy Indications: Screening for colorectal malignant neoplasm Providers: Bruno Hernandez DO Referring MD: Rigoberto Beltran Md Medicines: Monitored Anesthesia Care Patient Profile: This is a 60 year old female. Refer to note in patient chart for documentation of history and physical. Last Colonoscopy: several years ago. Complications: No immediate complications. Procedure: Pre-Anesthesia Assessment: - Prior to the procedure, a History and Physical was performed, and patient medications and allergies were reviewed. The patient is competent. The risks and benefits of the procedure and the sedation options and risks were discussed with the patient. All questions were answered and informed consent was obtained. Patient identification and proposed procedure were verified by the physician in the pre-procedure area. Mental Status Examination: alert and oriented. Airway Examination: normal oropharyngeal airway and neck mobility. Respiratory Examination: clear to auscultation. CV Examination: normal. Prophylactic Antibiotics: The patient does not require prophylactic antibiotics. Prior Anticoagulants: The patient has taken no anticoagulant or antiplatelet agents except for NSAID medication. ASA Grade Assessment: II - A patient with mild systemic disease. After reviewing the risks and benefits, the patient was deemed in satisfactory condition to undergo the procedure. The anesthesia plan was to use monitored anesthesia care (MAC). Immediately prior to administration of medications, the patient was re-assessed for adequacy to receive sedatives. The heart rate, respiratory rate, oxygen saturations, blood pressure, adequacy of pulmonary ventilation, and response to care were monitored throughout the procedure. The physical status of the patient was re-assessed after the procedure. After I obtained informed consent, the scope was passed under direct vision. Throughout the procedure, the patient's blood pressure, pulse, and oxygen saturations were monitored continuously. The pediatric colonoscope was introduced through the anus and advanced to the cecum, identified by appendiceal orifice and ileocecal valve. The colonoscopy was performed without difficulty. The patient tolerated the procedure well. The quality of the bowel preparation was adequate. The ileocecal valve, appendiceal orifice, and rectum were photographed. Scope In: 12:45:51 PM Scope Withdrawal Time 0 hours 8 minutes 43 seconds Scope Out: 1:07:09 PM Total Procedure Duration Time 0 hours 21 minutes 18 seconds Findings: The perianal and digital rectal examinations were normal. The colon (entire examined portion) appeared normal. No additional abnormalities were found on retroflexion. Impression: - The entire examined colon is normal. - No specimens collected. Recommendation: - Discharge patient to home. - Resume previous diet. - Continue present medications. - Repeat colonoscopy in 10 years for screening purposes. Procedure Code(s): --- Professional --- G0121, Colorectal cancer screening; colonoscopy on individual not meeting criteria for high risk CPT copyright 2021 [employer]. All rights reserved. The codes documented in this report are preliminary and upon ventilating expert review may be revised to meet current compliance requirements. Bruno Hernandez DO 03/23/2025 1:15:02 PM This report has been signed electronically. Number of Addenda: 0 Note Initiated On: 03/23/2025 12:34 PM
--- NOTE | 2025-03-23 13:17 | POSTOPAN2_ITS ---
Anesthesia Postop Eval I Sum Postop Eval Completion status Anesthesia document: Postop Eval 1 completed: Yes Anesthesia Postop Eval I Summary Anesthesia Postop Eval I Summary: Anesthesia Postop Eval I: Assessment Summary Airway patent Yes 03/23/25 13:08 [email or web address] Spontaneous unlabored Yes 03/23/25 13:08 [email or web address].OT respirations Mental status Awake,Calm 03/23/25 13:08 [email or web address] nausea No 03/23/25 13:08 [email or web address] [email or web address] Vomiting No 03/23/25 13:08 [email or web address].[email or web address] Anesthesia Postop Eval I: Fluid Summary Crystalloid volume administer 500 03/23/25 13:08 [email or web address].MDOT (ml) Colloids volume administered ( ml) Blood Product volume administered (ml) Total IV fluid infused 500 03/23/25 13:08 [email or web address] Anesthesia Postop Eval I: Summary Notes Anesthesia Complication No 03/23/25 13:08 [email or web address] Anesthesia Complication Comment: Post-operative progress note Anesthesia: Postop Eval II Evaluation Mental status: Awake and Calm Pain Level: 0 nausea: No Vomiting: No Complications Anesthesia Complication: No
--- NOTE | 2025-03-23 13:17 | PCM.POSTANE2 ---
Anesthesia Postop Eval I Sum Postop Eval Completion status Anesthesia document: Postop Eval 1 completed: Yes Anesthesia Postop Eval I Summary Anesthesia Postop Eval I Summary: Anesthesia Postop Eval I: Assessment Summary Airway patent Yes 03/23/25 13:08 [email or web address] Spontaneous unlabored Yes 03/23/25 13:08 [email or web address] respirations Mental status Awake,Calm 03/23/25 13:08 [email or web address] nausea No 03/23/25 13:08 [email or web address] Vomiting No 03/23/25 13:08 [email or web address] Anesthesia Postop Eval I: Fluid Summary Crystalloid volume administer 500 03/23/25 13:08 [email or web address] (ml) Colloids volume administered ( ml) Blood Product volume administered (ml) Total IV fluid infused 500 03/23/25 13:08 [email or web address] Anesthesia Postop Eval I: Summary Notes Anesthesia Complication No 03/23/25 13:08 [email or web address] Anesthesia Complication Comment: Post-operative progress note Anesthesia: Postop Eval II Evaluation Mental status: Awake and Calm Pain Level: 0 nausea: No Vomiting: No Complications Anesthesia Complication: No
== END 2025-03-23 14:05 | disposition home or self-care (01) ==
LOC: EN 10:54 → AC 10:55
PROVIDERS: PCP Family Medicine; Referring Provider Family Medicine; Visit Provider Internal Medicine Gastroenterology
PROC: 0DJD8ZZ Inspection of Lower Intestinal Tract, Via Natural or Artificial Opening Endoscopic (ICD-10-PCS; CPT 45378; principal; 2025-03-23 11:55)
DX: Z12.11 Encounter for screening for malignant neoplasm of colon (principal); E88.01 Alpha-1-antitrypsin deficiency; J43.9 Emphysema, unspecified; Z79.899 Other long term (current) drug therapy; Z86.0100 Personal history of colon polyps, unspecified
CPT/HCPCS: G0121; A4216

== ENCOUNTER → 2025-04-26 | Outpatient (CLI) | payer BC, SELFPAY ==
--- NOTE | 2025-04-26 15:04 | FLU_PTH ---
PATIENT: TREASURE PÉREZ LOC: [facility] U#:[id number] AGE/SX: 60/F ROOM: RE04/26/[address]: Dr. Pantera Willis MD : 1965 BED: DIS: 04/26/2025 SPEC #: [id number] RECD: 04/26/25 17:00 STATUS: BUCK REQ #: [id number] JUAN CARLOS: 04/26/25 15:[address]: Pantera Willis DEPT: CYTOLOGY RECD BY: Marquez Howard ENTERED: 04/27/25 08:44 SP TYPE: Fluid OTHR DR: Rigoberto Beltran MD Tissues: A - Urine Procedures: Special Stain Group II Surgery Specimen Level IV Cytospin Fluid HEADER OPERATION: Not noted PRE-OP DIAGNOSIS: Malignant neoplasm of posterior wall of bladder TISSUE SUBMITTED: A- Urine for cytology DIAGNOSIS CYTOLOGY A. Urine (cytospin): * No malignant cells identified. CYTOLOGY STUDY Slides are reviewed. CYTOLOGY GROSS A. Received is 60 ml of [id number] fluid labeled with the patient's name and and designated per the requisition as urine. Submitted for cytology preparation. 04/27/2025 CPT: 05130
[2025-04-26 16:20] LABS: Cytology, Body Fluid / CSF SEE PATHOLOGY REPORT
== END | disposition home or self-care (01) ==
LOC: LABSPEC 15:21
PROVIDERS: PCP Family Medicine; Referring Provider Urology; Visit Provider Urology
DX: C67.4 Malignant neoplasm of posterior wall of bladder (principal)
CPT/HCPCS: 88108; 88305; 88313

== ENCOUNTER → 2025-05-22 | Outpatient (CLI) | payer OTHER, SELFPAY ==
--- NOTE | 2025-05-22 15:05 | BI_ITS ---
EXAM: SCRN MAMM (CAD)W/JOHN BILAT DATE: 05/22/2025 CLINICAL HISTORY: F, Age 60 y/o , SCREENING TECHNIQUE: SCRN MAMM (CAD)W/JOHN BILAT COMPARISON: Prior exam(s) were compared FINDINGS: TISSUE DENSITY: The breast tissue is heterogeneously dense, which may obscure small masses. Bilateral Breast Mammographic Findings: No suspicious masses, calcifications or other abnormalities are identified. BI/SCRN MAMM (CAD)W/JOHN BILAT IMPRESSION: No mammographic evidence of malignancy in either breast OVERALL FINAL ASSESSMENT BI-RADS 1: NEGATIVE. RECOMMEND ANNUAL MAMMOGRAPHIC SCREENING. RECOMMENDATION: Routine annual follow-up in 1 Year A letter with findings and recommendations will be mailed to the patient. Reading Location: [id number]
== END | disposition home or self-care (01) ==
LOC: OPBD 15:03
PROVIDERS: PCP Family Medicine; Referring Provider Obstetrics & Gynecology; Visit Provider Obstetrics & Gynecology
DX: Z12.31 Encounter for screening mammogram for malignant neoplasm of breast (principal)
CPT/HCPCS: 77063; 77067

== ENCOUNTER → 2025-10-12 | Outpatient (CLI) | payer OTHER, SELFPAY ==
--- NOTE | 2025-10-12 16:22 | RAD_ITS ---
PROCEDURE: LUMBAR SPINE 2 OR 3 VIEWS 10/12/2025 REASON FOR EXAM: SCIATICA/ LEFT SIDE TECHNIQUE: Procedure Code: RADSPLL Modality: DX Procedure: LUMBAR SPINE 2 OR 3 VIEWS COMPARISON: None FINDINGS: Vertebrae: The visualized sacrum is intact. SI joints are unremarkable. There are 5 lumbar-type vertebral bodies below last set of paired ribs. Vertebral body heights and alignment are within normal limits. There is no spondylolysis. There is no spondylosis. Discs: Disc spaces are well-maintained. Alignment: There is no spondylolisthesis. Other: Zxgedigd-kk-ldlrz amount of stool and gas is present throughout a nondistended colon. The patient appears to be mildly constipated. RAD/Lumbar Spine 2 or 3 Views IMPRESSION: Unremarkable lumbosacral spine study. Reading Location: [id number]
== END | disposition home or self-care (01) ==
LOC: MTRAD 16:21
PROVIDERS: PCP Family Medicine; Referring Provider Family Medicine; Visit Provider Family Medicine
DX: M54.32 Sciatica, left side (principal)
CPT/HCPCS: 72100

== ENCOUNTER → 2025-11-15 | Outpatient (CLI) | payer OTHER, SELFPAY ==
--- NOTE | 2025-11-15 10:03 | US_ITS ---
PROCEDURE: ABD LIMITED W/ ELASTOGRAPHY REASON FOR EXAM: FATTY LIVER DISEASE COMPARISON: None. TECHNIQUE: Procedure Code: [id number] Modality: US Procedure: ABD LIMITED W/ ELASTOGRAPHY Right upper quadrant abdominal ultrasound. Christopher ElastQ Imaging shear wave elastography for non-invasive assessment of liver tissue stiffness. Christopher EPIQ Elite. FINDINGS: LIVER: Size: Unremarkable Length: 13.6 cm Echotexture: Normal Contour: Normal Lesions: None identified Elastography: EQI Med: 3.3 kPa EQI Med Marvin: 1.02 m/s IQR/Med: 13.1 %* GALLBLADDER: No stones sludge wall thickening or tenderness. COMMON BILE DUCT: Normal measuring 4 mm . PANCREAS: Normal Visualized portions of the right kidney are unremarkable. No right upper quadrant ascites. US/ABD Limited w/ Elastography IMPRESSION: No evidence of hepatic fibrosis. Reference Values: SRU <1.37 m/s (5.7kPa): No to mild fibrosis 1.37 m/s - 2.2 m/s: Moderate to severe fibrosis >2.2 m/s (15kPa): Significant fibrosis / cirrhosis METAVIR Score F2 or higher: 1.34 m/s (5.7kPa) F3 or higher: 1.55 m/s (7.3kPa) F4: 1.80 m/s (10kPa) * If the IQR/Med is >30%, the variance in the measurements is a large and the a ccuracy of the measurement may be in question. Reading Location: [facility]
== END | disposition home or self-care (01) ==
PROVIDERS: PCP Family Medicine; Referring Provider Internal Medicine Gastroenterology; Visit Provider Internal Medicine Gastroenterology
DX: E88.01 Alpha-1-antitrypsin deficiency (principal); K76.0 Fatty (change of) liver, not elsewhere classified
CPT/HCPCS: 76705; 76981

== ENCOUNTER → 2025-11-19 | Outpatient (CLI) | payer OTHER, SELFPAY | END | disposition home or self-care (01) | LOC: US 11:57 | PROVIDERS: PCP Family Medicine; Referring Provider Family Medicine; Visit Provider Family Medicine | DX: E04.1 Nontoxic single thyroid nodule (principal) | CPT/HCPCS: 76536 ==